=== PATIENT | male | born 1965 | race Caucasian/White ===

== ENCOUNTER 2018-04-04 09:58 | Inpatient (IN) | payer OTHER, MEDICARE ==
[~2018-04-04] VITALS: Ht 188 cm; Wt 112.5 kg
[2018-04-04] MEDS ORDERED: RT-ALBUTEROL/IPRATROPIUM 3 ML (DUONEB) VIAL INH ONE (10:00)
--- NOTE | 2018-04-04 10:08 | ED Respiratory ---
History of Present Illness Date Seen by Provider: Apr 04, 2018 Time Seen by Provider: 09:52 Initial Comments 52 yr old white male who is a resident at [facility] presents with reportedly low O2 sats. He denies any dyspnea or cough. No chest pain, fever or other complaints reported. He states that the oximeter at the [facility] has not been working properly. His primary care physician was contacted and he was sent here by EMS. He states that he no longer smokes but did so in the past. He has not had any ankle edema or pleuritic chest discomfort. Cough has been nonproductive and he reports no hemoptysis. Allergies and Home Medications Allergies Coded Allergies: No Known Drug Allergies (Unverified , 04/04/18) Patient Home Medication List Home Medication List Reviewed: No Review of Systems Review of Systems Constitutional: no symptoms reported EENTM: see HPI; No blurred vision, No double vision, No throat pain Respiratory: cough (chronic, unchanged); No short of breath, No stridor Cardiovascular: no symptoms reported; No chest pain, No edema, No palpitations , No syncope Gastrointestinal: No abdominal pain, No diarrhea, No nausea, No vomiting Genitourinary: no symptoms reported; No hematuria, No pain Musculoskeletal: no symptoms reported Skin: no symptoms reported Psychiatric/Neurological: See HPI; Denies Paresthesia, Denies Seizure, Denies Tingling Hematologic/Lymphatic: See HPI; Denies Anemia, Denies Blood Clots, Denies Other Immunological/Allergic: denies see HPI, denies transplant Past Cccvpuw-Xsewjz-Zwaejp Hx Past Med/Social Hx: Reviewed Nursing Past Med/Soc Hx Physical Exam Vital Signs - First Documented 04/04/18 10:06 Temp 98.2 Pulse 82 Resp 18 B/P (MAP) 102/63 (76) Pulse Ox 94 O2 Delivery Nasal Cannula O2 Flow Rate 2.00 Capillary Refill : Height: '" Weight: lbs. oz. kg; BMI Method: General Appearance: WD/WN, no apparent distress Eyes: Right Eye Normal Inspection, Right Eye PERRL, Right Eye EOMI, Right Eye Abnormal EOM; Bilateral Eye Normal Inspection, Bilateral Eye PERRL, Bilateral Eye EOMI HEENT: PERRL/EOMI, normal ENT inspection, TMs normal, pharynx normal; No scleral icterus (R) Neck: non-tender, full range of motion, supple, normal inspection, carotid bruit Respiratory: chest non-tender, no respiratory distress, no accessory muscle use , decreased breath sounds, rhonchi Cardiovascular: regular rate, rhythm, no edema, no gallop, no JVD, no murmur Gastrointestinal: normal bowel sounds, non tender, soft, no organomegaly, no pulsatile mass Extremities: normal range of motion, non-tender, normal inspection, no pedal edema, no calf tenderness, normal capillary refill, pelvis stable; No swelling 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, no motor/sensory deficits, alert, normal mood/affect, oriented x 3 Skin: normal color, warm/dry, damp Lymphatic: no adenopathy Progress/Results/Core Measures Suspected Sepsis SIRS Temperature: Pulse: Respiratory Rate: Laboratory Tests 04/04/18 10:06: White Blood Count 8.1 Blood Pressure / Mean: Laboratory Tests 04/04/18 10:06: Creatinine 0.79, INR Comment 1.0, Platelet Count 205, Total Bilirubin 0.5 Results/Orders Lab Results Laboratory Tests Test 04/04/18 10:06 Range/Units White Blood Count 8.1 4.3-11.0 10^3/uL Red Blood Count 4.75 4.35-5.85 10^6/uL Hemoglobin 14.5 13.3-17.7 G/DL Hematocrit 47 40-54 % Mean Corpuscular Volume 98 80-99 FL Mean Corpuscular Hemoglobin 31 25-34 PG Mean Corpuscular Hemoglobin Concent 31 L 32-36 G/DL Red Cell Distribution Width 15.6 H 10.0-14.5 % Platelet Count 205 130-400 10^3/uL Mean Platelet Volume 9.9 7.4-10.4 FL Neutrophils (%) (Auto) 72 42-75 % Lymphocytes (%) (Auto) 16 12-44 % Monocytes (%) (Auto) 8 0-12 % Eosinophils (%) (Auto) 3 0-10 % Basophils (%) (Auto) 1 0-10 % Neutrophils # (Auto) 5.7 1.8-7.8 X 10^3 Lymphocytes # (Auto) 1.3 1.0-4.0 X 10^3 Monocytes # (Auto) 0.7 0.0-1.0 X 10^3 Eosinophils # (Auto) 0.3 0.0-0.3 10^3/uL Basophils # (Auto) 0.1 0.0-0.1 10^3/uL Prothrombin Time 13.3 12.2-14.7 SEC INR Comment 1.0 0.8-1.4 Activated Partial Thromboplast Time 32 24-35 SEC Sodium Level 142 135-145 MMOL/L Potassium Level 4.2 3.6-5.0 MMOL/L Chloride Level 101 98-107 MMOL/L Carbon Dioxide Level 22 21-32 MMOL/L Anion Gap 19 H 5-14 MMOL/L Blood Urea Nitrogen 18 7-18 MG/DL Creatinine 0.79 0.60-1.30 MG/DL Estimat Glomerular Filtration Rate > 60 BUN/Creatinine Ratio 23 Glucose Level 108 H 70-105 MG/DL Calcium Level 9.1 8.5-10.1 MG/DL Corrected Calcium 9.2 8.5-10.1 MG/DL Magnesium Level 2.2 1.8-2.4 MG/DL Total Bilirubin 0.5 0.1-1.0 MG/DL Aspartate Amino Transf (AST/SGOT) 19 5-34 U/L Alanine Aminotransferase (ALT/SGPT) 26 0-55 U/L Alkaline Phosphatase 78 40-136 U/L Troponin T 29 H <=15 NG/L B-Type Natriuretic Peptide 309.8 H <100.0 PG/ML Total Protein 7.8 6.4-8.2 GM/DL Albumin 3.9 3.2-4.5 GM/DL My Orders Orders - LEEROY HI MD Cbc With Automated Diff (04/04/18 09:59) Magnesium (04/04/18 09:59) Chest 1 View Ap/Pa Only (04/04/18 09:59) Ekg Tracing (04/04/18 09:59) Comprehensive Metabolic Panel (04/04/18 09:59) Protime With Inr (04/04/18 09:59) Partial Thromboplastin Time (04/04/18:59) O2 (04/04/18 09:59) Monitor-Rhythm Ecg Trace Only (04/04/18:59) Lipid Panel (04/05/18 06:00) Saline Lock/Iv-Start (04/04/18 09:59) BNP (04/04/18 09:59) Albuterol/Ipra Inhalation Soln (Duoneb I (04/04/18 10:00) Svn Small Volume Nebulizer (04/04/18 09:59) Ceftriaxone For Iv Use (Rocephin For I (04/04/18 11:00) Azithromycin Injection (Zithromax Inject (04/04/18 11:00) Furosemide Injection (Lasix Injection) (04/04/18 11:15) Vital Signs/I&O 04/04/18 04/04/18 10:06 10:22 Temp 98.2 Pulse 82 Resp 18 B/P (MAP) 102/63 (76) Pulse Ox 94 94 O2 Delivery Nasal Cannula Nasal Cannula O2 Flow Rate 2.00 3.00 Capillary Refill : Progress Note : Time: 10:09 Progress Note Patient's oxygen saturation upon admission on room air was 91%. Due to his history of COPD and reported lung findings at the facility, will obtain chest x- ray, cardiac workup and administer a breathing treatment. We'll closely monitor and adjust workup and treatment as indicated. 1050 CXR suggests atelectasis vs. pneumonitis. Will give abx. 1110 Troponin and BNP elevated. Lasix ordered. Will admit for further evaluation. Pt agreeable with plan. Awaiting call back from hospitalist. [address] Corona who accepts for admission. Will transfer via [facility]. ECG Initial ECG Impression Date: Apr 04, 2018 Initial ECG Impression Time: 10:19 Initial ECG Rhythm: Normal Sinus (Q waves inferiorly, no acute changes.) Initial ECG Intervals: Normal Initial ECG Impression: Nonspecific Changes Diagnostic Imaging Diagonstic Imaging: Xray Plain Films/CT/US/NM/MRI: chest Comments CXR: Subsegmental atelectasis vs. pneumonitis. Departure Impression Primary Impression: Hypoxia Additional Impressions: Acute exacerbation of chronic obstructive airways disease CHF (congestive heart failure) Qualified Codes: I50.9 - Heart failure, unspecified Elevated troponin Disposition: SHT-TRM HOSP Condition: Improved Transfer Time Spoke to Accepting Phy: 11:16 Transfer Progress Notes Discussed with Dr. Corona who accepts patient for admission. Patient agreeable with plan. Transfer Time: 11:16 Transfer Facility: [facility] Method of Transfer: EMS Departure-Patient Inst. Referrals: LEEROY MCDUFFIE MD (PCP/Family) Primary Care Physician LEEROY HI MD Apr 04, 2018 10:08
[2018-04-04 10:28] LABS: EOSINOPHILS % (AUTO) 3 % (0-10); HEMATOCRIT 47 % (40-54); HEMOGLOBIN 14.5 G/DL (13.3-17.7); LYMPHOCYTES % (AUTO) 16 % (12-44); MEAN CORPUSCULAR HEMOGLOBIN 31 PG (25-34); MEAN CORPUSCULAR HGB CONC 31 G/DL (32-36); MEAN CORPUSCULAR VOLUME 98 FL (80-99); MEAN PLATELET VOLUME 9.9 FL (7.4-10.4); MONOCYTES % (AUTO) 8 % (0-12); PLATELET COUNT 205 10^3/uL (130-400); RED CELL DISTRIBUTION WIDTH 15.6 % (10.0-14.5); WHITE BLOOD COUNT 8.1 10^3/uL (4.3-11.0)
[2018-04-04 10:29] LABS: BASOPHILS # (AUTO) 0.1 10^3/uL (0.0-0.1); BASOPHILS % (AUTO) 1 % (0-10); EOSINOPHILS # (AUTO) 0.3 10^3/uL (0.0-0.3); LYMPHOCYTES # (AUTO) 1.3 X 10^3 (1.0-4.0); MONOCYTES # (AUTO) 0.7 X 10^3 (0.0-1.0); NEUTROPHILS # (AUTO) 5.7 X 10^3 (1.8-7.8); NEUTROPHILS % (AUTO) 72 % (42-75)
[2018-04-04 10:38] LABS: PROTHROMBIN TIME PATIENT 13.3 SEC (12.2-14.7)
--- NOTE | 2018-04-04 10:40 | Diagnostic Imaging Report ---
INDICATION: Difficulty breathing. FINDINGS: There is bibasilar subsegmental atelectasis and/or pneumonitis. There is cardiomegaly. There is no pneumothorax. Mediastinum is unremarkable. Left upper extremity PICC line is in satisfactory position. IMPRESSION: Cardiomegaly and some bibasilar subsegmental atelectasis and/or pneumonitis. Dictated by: Dictated on workstation # [id number]
[2018-04-04 10:42] LABS: BUN/CREATININE RATIO 23; CARBON DIOXIDE 22 MMOL/L (21-32); CHLORIDE 101 MMOL/L (98-107); CREATININE SERUM 0.79 MG/DL (0.60-1.30); GFR ESTIMATED > 60; GLUCOSE 108 MG/DL (70-105); POTASSIUM 4.2 MMOL/L (3.6-5.0); SODIUM 142 MMOL/L (135-145)
[2018-04-04 10:43] LABS: ALANINE AMINOTRANSFERASE 26 U/L (0-55); ALBUMIN 3.9 GM/DL (3.2-4.5); ALKALINE PHOSPHATASE 78 U/L (40-136); BILIRUBIN,TOTAL 0.5 MG/DL (0.1-1.0); CALCIUM 9.1 MG/DL (8.5-10.1); MAGNESIUM 2.2 MG/DL (1.8-2.4); TOTAL PROTEIN 7.8 GM/DL (6.4-8.2)
[2018-04-04] MEDS ORDERED: cefTRIAXone FOR IV USE 1,000 MG in WATER (STERILE) FOR INJECTION 10 ML IV ONE (11:00)
[2018-04-04] MEDS ORDERED: AZITHROMYCIN INJECTION 500 MG in NS (IVPB) 250 ML IV ONE (11:00)
[2018-04-04] MEDS ORDERED: FUROSEMIDE 40 MG/4 ML INJ (LASIX) IVP ONE (11:15)
[2018-04-04 15:53] VITALS: BP 115/56
[2018-04-04] MEDS ORDERED: LORA0.5T PO (15:58)
[2018-04-04] MEDS ORDERED: SERT100T8 PO (15:58)
[2018-04-04] MEDS ORDERED: QUET50TA PO (15:58)
[2018-04-04] MEDS ORDERED: FAMO20TA3 PO (15:58)
[2018-04-04] MEDS ORDERED: FOLI0.4T2 PO (15:58)
[2018-04-04] MEDS ORDERED: ACET-2267 PO (15:58)
[2018-04-04] MEDS ORDERED: LOPE2CAP PO (15:58)
[2018-04-04] MEDS ORDERED: QUET300T2 PO (15:58)
[2018-04-04] MEDS ORDERED: POLY17PO6 PO (15:58)
[2018-04-04] MEDS ORDERED: HALO5TAB PO (15:58)
[2018-04-04] MEDS ORDERED: HYDR28.3 TP (16:08)
[2018-04-04] MEDS ORDERED: TR1C15 TP (16:08)
[2018-04-04] MEDS ORDERED: MICO5POW6 TOP (16:08)
--- NOTE | 2018-04-04 16:09 | NUR ---
UPDATED MED REC WITH ORDER SUMMARY REPORT FROM [employer] [employer] [facility]
[2018-04-04] MEDS ORDERED: LOPERAMIDE 2 MG (IMODIUM) CAP PO PRN (16:30)
[2018-04-04] MEDS ORDERED: MILK OF MAGNESIA 400 MG/5 ML 30 ML UDC PO PRN (16:30)
[2018-04-04] MEDS ORDERED: ANTACID SUSP 30 ML UDC (MYLANTA) PO PRN (16:30)
[2018-04-04] MEDS ORDERED: BENZONATATE 100 MG (TESSALON) CAPSULE PO PRN (16:30)
[2018-04-04] MEDS ORDERED: ACETAMINOPHEN 325 MG TABLET PO PRN (16:30)
[2018-04-04] MEDS ORDERED: ONDANSETRON 4 MG/2 ML (SDV) Z0FRAN IV PRN (16:30)
--- NOTE | 2018-04-04 18:24 | NUR ---
MEJIA MCNULTY Kirs admitted to room 408-1, with an admitting diagnosis of pna , on 04/04/18 from [facility] via EMS, accompanied by EMS staff .MEJIA MCNULTY introduced to surroundings, call light, bed controls, phone, TV, temperature control, lights, meal times, smoking policy, visitor policy, side rail policy, bathrooms and showers. Patient Rights given to patient in the handbook. MEJIA MCNULTY verbalizes understanding that [facility] is not responsible for the loss or damage to any personal effects or valuables that are kept in the patients posession during their hospitalization. The following Patient Care Plans and discharge were discussed with the patient . MEJIA MCNULTY verbalizes understanding of Interdisciplinary Patient Education.
--- NOTE | 2018-04-04 18:28 | Consultation-Cardiology ---
HPI-Cardiology Cardiology Consultation: Date of Consultation 04/04/18 Time Seen by a Provider: 17:40 Date of Admission Attending Physician Danita Corona MD Admitting Physician Andrey Meier MD Consulting Physician NATALYA BENITEZ MD, MA, FACP, FACC, FSCAI, CCDS Physician requesting consult: Dr Hatfield HPI: Chief Complaint: Reason for consultation: Hypoxemia HPI 52 yo man, resident of [facility], sent to [facility] for hypoxia. He does not report cp. Does note some shortness of breath. Denies palp or syncope. Doesn't seem to have good memory or good insight into his medical issues. History- taking was helped by his sister who was by his bed side. Review of Systems-Cardiology Review of Systems Constitutional: malaise, tiredness; No weight loss, No weight gain Eyes: No vision change Ears/Nose/Throat: No ear discharge, No nasal drainage, No recent hearing loss Respiratory: As described under HPI Cardiovascular: As described under HPI Gastrointestinal: No constipation, No diarrhea, No nausea, No vomiting Genitourinary: No dysuria, No hematuria, No other Musculoskeletal: No back pain, No joint pain Skin: No rash, No ulcerations Psychiatric/Neurological: No seizure, No focal weakness, No syncope Hematologic: No bleeding abnormalities PFE-Koalrl-Rkoocg Hx Patient Social History Alcohol Use: Denies Use Recreational Drug Use: No Recent Foreign Travel: No Recent Infectious Disease Expo: No Physical Abuse Screen: No Sexual Abuse: No Immunizations Up To Date Date of Influenza Vaccine: Nov 05, 2017 Past Medical History PMH As described under Assessment. Family Medical History Family History: Arthritis Asthma Cardiovascular disease Cataracts Colon cancer Completed stroke Congenital heart disease Coronary thrombosis Deafness or hearing loss Diabetes mellitus Hypertension Kidney disease Myocardial infarction Psychosocial problem Respiratory disorder Thyroid disease Allergies and Home Medications Allergies Coded Allergies: No Known Drug Allergies (Unverified , 04/04/18) Home Medications Acetaminophen 500 Mg Tablet, 1,000 MG PO Q8H PRN for PAIN-MILD, (Reported) TAKES 2 (500MG) TABLETS Famotidine 20 Mg Tablet, 20 MG PO DAILY, (Reported) Folic Acid 0.4 Mg Tablet, 0.8 MG PO DAILY, (Reported) TAKES 2 (0.4MG) TABLETS Haloperidol 5 Mg Tablet, 5 MG PO HS, (Reported) Hydrocortisone 28.35 Gm Cream..g., TP Q8H PRN for RASH, (Reported) APPLY TO FACE Loperamide HCl 2 Mg Capsule, 2 MG PO UD PRN for DIARRHEA, (Reported) NOT TO EXCEED 8 TABS IN 24 HOURS Lorazepam 0.5 Mg Tablet, 0.5 MG PO BID, (Reported) Miconazole 5 Gm Powder, TOP Q12H PRN for GAULDING/REDNESS, (Reported) APPLY TO GLUTEAL FOLDS/ GROIN AREA Polyethylene Glycol 3350 17 Gm Powd.pack, 17 GM PO DAILY, (Reported) Quetiapine Fumarate 300 Mg Tablet, 150 MG PO HS, (Reported) TAKES 1/2 (300MG) TABLET Quetiapine Fumarate 50 Mg Tablet, 50 MG PO DAILY, (Reported) Sertraline HCl 100 Mg Tablet, 100 MG PO DAILY, (Reported) Triamcinolone Acet 15 Gm Cr, TP DAILY PRN for RASH, (Reported) Patient Home Medication List Home Medication List Reviewed: Yes Physical Exam-Cardiology Physical Exam Vital Signs/I&O 04/04/18 04/04/18 04/04/18 04/04/18 10:06 10:22 14:38 15:53 Temp 98.2 97.8 97.8 Pulse 82 83 77 Resp 18 16 20 B/P (MAP) 102/63 (76) 126/71 (89) 115/56 Pulse Ox 94 94 91 94 O2 Delivery Nasal Cannula Nasal Cannula Nasal Cannula O2 Flow Rate 2.00 3.00 3.00 04/04/18 17:33 Pulse 75 Capillary Refill : Less Than 3 Seconds Constitutional: AAO x 3, well-developed, well-nourished, other (His thought and focus of attention wander; at times, what he saying is not confirmed by his sister) HEENT: PERRL, EOMI, hearing is well preserved; No xanthelasmas are seen Neck: carotid pulses are 2 + bilaterally, with good upstrokes Respiratory: No accessory muscle use; other (generally somewhat diminished air entry and prolonged exp phase) Cardiovascular: regular rate-rhythm, S1 and S2, systolic murmur (soft AKHIL at card base) Gastrointestinal: No tender; soft; No guarding, No rebound; audible bowel sounds Extremities: No clubbing, No cyanosis, No significant edema Neurologic/Psychiatric: oriented x 3, grossly intact, power is 5/5 both on sides Skin: No rash on exposed areas, No ulcerations on exposed areas Lymphatic: no adenopathy Data Review Labs Laboratory Tests 04/04/18 10:06: White Blood Count 8.1, Red Blood Count 4.75, Hemoglobin 14.5, Hematocrit 47, Mean Corpuscular Volume 98, Mean Corpuscular Hemoglobin 31, Mean Corpuscular Hemoglobin Concent 31L, Red Cell Distribution Width 15.6H, Platelet Count 205, Mean Platelet Volume 9.9, Neutrophils (%) (Auto) 72, Lymphocytes (%) (Auto) 16, Monocytes (%) (Auto) 8, Eosinophils (%) (Auto) 3, Basophils (%) (Auto) 1, Neutrophils # (Auto) 5.7, Lymphocytes # (Auto) 1.3, Monocytes # (Auto) 0.7, Eosinophils # (Auto) 0.3, Basophils # (Auto) 0.1, Prothrombin Time 13.3, INR Comment 1.0, Activated Partial Thromboplast Time 32, Sodium Level 142, Potassium Level 4.2, Chloride Level 101, Carbon Dioxide Level 22, Anion Gap 19H , Blood Urea Nitrogen 18, Creatinine 0.79, Estimat Glomerular Filtration Rate > 60, BUN/Creatinine Ratio 23, Glucose Level 108H, Calcium Level 9.1, Corrected Calcium 9.2, Magnesium Level 2.2, Total Bilirubin 0.5, Aspartate Amino Transf ( AST/SGOT) 19, Alanine Aminotransferase (ALT/SGPT) 26, Alkaline Phosphatase 78, Troponin T 29H, B-Type Natriuretic Peptide 309.8H, Total Protein 7.8, Albumin 3.9 04/04/18 16:14: Troponin I < 0.028 Laboratory Tests 04/04/18 10:06 A/P-Cardiology Assessment/Admission Diagnosis Hypoxemia of undetermined etiology Bibasilar pneumonia or atelectasis, based on CXR of 04/04/18 Mild BNP elevation. Cannot exclude mild decomp CHF of undetermined etiology Abnormal ECG, suggestive of old inferolateral AL Schizophrenia with a h/o severe, transient eating disorder in [facility] during latter-day of nutrition Obesity with BMI approx Quit smoking in Fam h/o unknown cardiomyopathy: his sister states she has been diagnosed with a cardiomyopathy, but doesn't know any details Discussion and Recomendations * Treat with bb and ASA while awaiting card w/u * Monitor labs * Echo * Discussed case with Dr Corona on the phone earlier today * Further recs based on hosp course Clinical Quality Measures DVT/VTE Risk/Contraindication: Risk Factor Score Per Nursin RFS Level Per Nursing on Admit: 3=High NATALYA BENITEZ MD FACP FACC CCDS Apr 04, 2018 18:28
[2018-04-04] MEDS ORDERED: ASPIRIN 81 MG CHEW (CHILDREN'S ASA) PO NR (18:54)
[2018-04-04 19:17] VITALS: BP 107/70
[2018-04-04] MEDS: LORazepam 0.5 MG (ATIVAN) TABLET PO SCH (20:05)
[2018-04-04] MEDS: FAMOTIDINE 20 MG (PEPCID) TABLET PO SCH (20:05)
[2018-04-04] MEDS ORDERED: NITROGLYCERIN 0.4 MG SL TABS BTL 25'S SL PRN (20:15)
[2018-04-04] MEDS ORDERED: QUEtiapine 100 MG (SEROquel) TAB IMMEDIATE RELEASE PO SCH (21:00)
[2018-04-04] MEDS ORDERED: HALOPERIDOL 2 MG (HALDOL) TABLET PO SCH (21:00)
[2018-04-04 23:02] VITALS: BP 117/76
[2018-04-05 03:39] VITALS: BP 112/75
[2018-04-05 06:11] LABS: BASOPHILS # (AUTO) 0.1 10^3/uL (0.0-0.1); BASOPHILS % (AUTO) 1 % (0-10); EOSINOPHILS # (AUTO) 0.2 10^3/uL (0.0-0.3); EOSINOPHILS % (AUTO) 3 % (0-10); HEMATOCRIT 49 % (40-54); HEMOGLOBIN 14.7 G/DL (13.3-17.7); LYMPHOCYTES # (AUTO) 1.1 X 10^3 (1.0-4.0); LYMPHOCYTES % (AUTO) 14 % (12-44); MEAN CORPUSCULAR HEMOGLOBIN 30 PG (25-34); MEAN CORPUSCULAR HGB CONC 30 G/DL (32-36); MEAN CORPUSCULAR VOLUME 98 FL (80-99); MEAN PLATELET VOLUME 9.9 FL (7.4-10.4); MONOCYTES # (AUTO) 0.8 X 10^3 (0.0-1.0); MONOCYTES % (AUTO) 10 % (0-12); NEUTROPHILS # (AUTO) 5.9 X 10^3 (1.8-7.8); NEUTROPHILS % (AUTO) 73 % (42-75); PLATELET COUNT 179 10^3/uL (130-400); WHITE BLOOD COUNT 8.1 10^3/uL (4.3-11.0)
[2018-04-05 06:30] LABS: BUN/CREATININE RATIO 20; CALCIUM 9.2 MG/DL (8.5-10.1); CARBON DIOXIDE 33 MMOL/L (21-32); CHLORIDE 99 MMOL/L (98-107); CREATININE SERUM 0.95 MG/DL (0.60-1.30); GFR ESTIMATED > 60; GLUCOSE 97 MG/DL (70-105); POTASSIUM 4.2 MMOL/L (3.6-5.0); SODIUM 144 MMOL/L (135-145)
[2018-04-05 07:17] LABS: CHOLESTEROL 217 MG/DL (< 200); HDL CHOLESTEROL 38 MG/DL (40-60); TRIGLYCERIDES 175 MG/DL (<150); VLDL CHOLESTEROL 35 MG/DL (5-40)
[2018-04-05 08:00] VITALS: BP 105/57
[2018-04-05] MEDS: LORazepam 0.5 MG (ATIVAN) TABLET PO SCH (08:35)
[2018-04-05] MEDS: FAMOTIDINE 20 MG (PEPCID) TABLET PO SCH (08:38)
[2018-04-05] MEDS ORDERED: FOLIC ACID 1 MG TAB PO SCH (09:00)
[2018-04-05] MEDS ORDERED: cefTRIAXone FOR IV USE 1,000 MG in WATER (STERILE) FOR INJECTION 10 ML IV SCH (09:00)
[2018-04-05] MEDS ORDERED: POLYETHYLENE GLYCOL 17 GM (MIRALAX) PACK PO SCH (09:00)
[2018-04-05] MEDS ORDERED: QUEtiapine 100 MG (SEROquel) TAB IMMEDIATE RELEASE PO SCH (09:00)
[2018-04-05] MEDS ORDERED: ASPIRIN 81 MG CHEW (CHILDREN'S ASA) PO SCH (09:00)
[2018-04-05] MEDS ORDERED: AZITHROMYCIN 250 MG TAB (ZITHROMAX) PO SCH (09:00)
[2018-04-05] MEDS ORDERED: SERTRALINE 100 MG (ZOLOFT) TAB PO SCH (09:00)
--- NOTE | 2018-04-05 09:37 | Progress Note-Cardiology ---
Cardiology SOAP Progress Note Subjective: Sitting up in bed. Denies any c/o CP, palpitations, dyspnea. Objective: I&O/Vital Signs 04/04/18 04/05/18 04/05/18 04/05/18 23:02 01:00 03:39 07:00 Temp 97.8 97.8 Pulse 71 80 73 83 Resp 18 18 B/P (MAP) 117/76 (90) 112/75 (87) Pulse Ox 93 93 O2 Delivery Nasal Cannula Nasal Cannula O2 Flow Rate 3.00 3.00 04/05/18 04/05/18 08:00 08:00 Temp 97.2 Pulse 74 Resp 18 B/P (MAP) 105/57 (73) Pulse Ox 90 O2 Delivery Room Air Nasal Cannula O2 Flow Rate 3.00 04/05/18 00:00 Intake Total 530 ml Output Total 250 ml Balance 280 ml Weight (Pounds): 248 Weight (Ounces): 0.0 Weight (Calculated Kilograms): 112.575431 Constitutional: AAO x 3, well-developed, well-nourished, other (His thought and focus of attention wander; at times, what he saying is not confirmed by his sister) Respiratory: No accessory muscle use; other (generally somewhat diminished air entry and prolonged exp phase) Cardiovascular: regular rate-rhythm, S1 and S2, systolic murmur (soft AKHIL at card base) Gastrointestional: No tender; soft; No guarding, No rebound; audible bowel sounds Extremities: No clubbing, No cyanosis, No significant edema Neurologic/Psychiatric: oriented x 3, grossly intact, power is 5/5 both on sides Skin: No rash on exposed areas, No ulcerations on exposed areas Results/Procedures: Labs Laboratory Tests 04/04/18 10:06: White Blood Count 8.1, Red Blood Count 4.75, Hemoglobin 14.5, Hematocrit 47, Mean Corpuscular Volume 98, Mean Corpuscular Hemoglobin 31, Mean Corpuscular Hemoglobin Concent 31L, Red Cell Distribution Width 15.6H, Platelet Count 205, Mean Platelet Volume 9.9, Neutrophils (%) (Auto) 72, Lymphocytes (%) (Auto) 16, Monocytes (%) (Auto) 8, Eosinophils (%) (Auto) 3, Basophils (%) (Auto) 1, Neutrophils # (Auto) 5.7, Lymphocytes # (Auto) 1.3, Monocytes # (Auto) 0.7, Eosinophils # (Auto) 0.3, Basophils # (Auto) 0.1, Prothrombin Time 13.3, INR Comment 1.0, Activated Partial Thromboplast Time 32, Sodium Level 142, Potassium Level 4.2, Chloride Level 101, Carbon Dioxide Level 22, Anion Gap 19H , Blood Urea Nitrogen 18, Creatinine 0.79, Estimat Glomerular Filtration Rate > 60, BUN/Creatinine Ratio 23, Glucose Level 108H, Calcium Level 9.1, Corrected Calcium 9.2, Magnesium Level 2.2, Total Bilirubin 0.5, Aspartate Amino Transf ( AST/SGOT) 19, Alanine Aminotransferase (ALT/SGPT) 26, Alkaline Phosphatase 78, Troponin T 29H, B-Type Natriuretic Peptide 309.8H, Total Protein 7.8, Albumin 3.9 04/04/18 16:14: Troponin I < 0.028 04/05/18 05:45: White Blood Count 8.1, Red Blood Count 4.96, Hemoglobin 14.7, Hematocrit 49, Mean Corpuscular Volume 98, Mean Corpuscular Hemoglobin 30, Mean Corpuscular Hemoglobin Concent 30L, Red Cell Distribution Width 16.0H, Platelet Count 179, Mean Platelet Volume 9.9, Neutrophils (%) (Auto) 73, Lymphocytes (%) (Auto) 14, Monocytes (%) (Auto) 10, Eosinophils (%) (Auto) 3, Basophils (%) (Auto) 1, Neutrophils # (Auto) 5.9, Lymphocytes # (Auto) 1.1, Monocytes # (Auto) 0.8, Eosinophils # (Auto) 0.2, Basophils # (Auto) 0.1, Sodium Level 144, Potassium Level 4.2, Chloride Level 99, Carbon Dioxide Level 33H, Anion Gap 12, Blood Urea Nitrogen 19H, Creatinine 0.95, Estimat Glomerular Filtration Rate > 60, BUN /Creatinine Ratio 20, Glucose Level 97, Calcium Level 9.2, Triglycerides Level 175H, Cholesterol Level 217H, LDL Cholesterol Direct 158H, VLDL Cholesterol 35, HDL Cholesterol 38L Laboratory Tests 04/04/18 10:06 04/05/18 05:45 A/P: Assessment: Hypoxemia of undetermined etiology Bibasilar pneumonia or atelectasis, based on CXR of 04/04/18 Mild BNP elevation. Cannot exclude mild decomp CHF of undetermined etiology Abnormal ECG, suggestive of old inferolateral RI Mixed hyperlipidemia Schizophrenia with a h/o severe, transient eating disorder in requiring tracheostomy and mech ventilation during confucianism of nutrition Obesity with BMI approx Quit smoking in Fam h/o unknown cardiomyopathy: his sister states she has been diagnosed with a cardiomyopathy, but doesn't know any details Plan: * Continue bb and ASA while awaiting card w/u * Monitor labs * Echo pending * Start statin JUAN FRANCISCO Saba Apr 05, 2018 09:37
--- NOTE | 2018-04-05 11:28 | NUR ---
SPO2 77% ON ROOM AIR @ REST. REPLACED O2 @ 4 LPM TO GET A SAT OF 92%. DR ALEXIS NOTIFIED.
--- NOTE | 2018-04-05 11:37 | Short Stay Summary-Hospitalist ---
History of Present Illness HPI/Chief Complaint Pt is a 52yoCM who presented to the ER from his [facility] where he was found to be hypoxic. He is a very poor historian and is unable to give me any history. Per report he was found to be hypoxic but I am unsure why they checked. He was given a breathing treatment and his saturations remains in the 80s so he was brought to the ER for evaluation. He was found to have pneumonia on CXR with a mildly elevated troponin and BNP. He was transferred here for further evaluation. Today he reports he is doing well and is requesting DC home. Sister at bedside and expresses no other concerns other than that he doesn't get out of bed often. Source: patient Exam Limitations: clinical condition Date Seen 04/05/18 Time Seen by a Provider: 11:31 Attending Physician Kirby Corona MD PCP Andrey Meier MD Referring Physician Date of Admission Apr 04, 2018 at 12:01 Home Medications & Allergies Home Medications Reviewed patient Home Medication Reconciliation performed by pharmacy medication reconciliations installation and service technician and/or nursing. Patients Allergies have been reviewed. Allergies Allergies Coded Allergies No Known Drug Allergies (Unverified04/04/18) Past Nezhgwu-Qingqv-Pepgfm Hx Past Med/Social Hx: Reviewed Nursing Past Med/Soc Hx Patient Social History Employed/Student: unemployed Alcohol Use: Denies Use Recreational Drug Use: No Smoking Status: Unknown if Ever Smoked Physical Abuse Screen: No Sexual Abuse: No Recent Foreign Travel: No Contact w/other who traveled: No Recent Hopitalizations: No Recent Infectious Disease Expo: No Immunizations Up To Date Date of Influenza Vaccine: Nov 05, 2017 Seasonal Allergies Seasonal Allergies: No Past Medical History Gastrointestinal: Gastroesophageal Reflux, Gall Bladder Disease HEENT: Dysphagia Psychosocial: Anxiety, Schizophrenia, Depression History of Blood Disorders: No Adverse Reaction to Blood Klein: No Family History Arthritis Asthma Cardiovascular disease Cataracts Colon cancer Completed stroke Congenital heart disease Coronary thrombosis Deafness or hearing loss Diabetes mellitus Hypertension Kidney disease Myocardial infarction Psychosocial problem Respiratory disorder Thyroid disease Review of Systems ROS-Unable to Obtain: psychiatric disorder Constitutional: see HPI Physical Exam Physical Exam Vital Signs Vital Signs - First Documented 04/04/18 10:06 Temp 98.2 Pulse 82 Resp 18 B/P (MAP) 102/63 (76) Pulse Ox 94 O2 Delivery Nasal Cannula O2 Flow Rate 2.00 Capillary Refill : Less Than 3 Seconds Height, Weight, BMI Height: 6'2.00" Weight: 248lbs. 0.0oz. [id number]; 31.8 BMI Method:Estimated General Appearance: No Apparent Distress, Obese Eyes: Right Eye Normal Inspection, Right Eye PERRL, Right Eye EOMI, Right Eye Abnormal EOM HEENT: Moist Mucous Membranes; No Scleral Icterus (L), No Scleral Icterus (R) Neck: Normal Inspection, Supple Respiratory: Lungs Clear, No Accessory Muscle Use, No Respiratory Distress Cardiovascular: Regular Rate, Rhythm, No Murmur Gastrointestinal: Normal Bowel Sounds, Non Tender, Soft Extremity: No Calf Tenderness, No Pedal Edema Neurologic/Psychiatric: Alert, No Motor/Sensory Deficits, Other (oriented to person and place) Skin: Normal Color, Warm/Dry Results Results/Procedures Labs Laboratory Tests 04/05/18 05:45 Patient resulted labs reviewed. Imaging: Reviewed Imaging Report Short Stay Diagnosis Discharge Diagnosis-Short Stay Admission Diagnosis Pneumonia Final Discharge Diagnosis Pneumonia Conclusion Plan Pneumonia Continue treatment with oral abx as an outpatient (Keflex and Azithro) DC back to shelter Home oxygen testing revealed need- this was arranged Elevated troponin Negative here Discussed with Angie Brown APRN for Dr Botello who is ok with discharge HLD mixed HLD, start on statin Clinical Quality Measures DVT/VTE Risk/Contraindication: Risk Factor Score Per Nursin RFS Level Per Nursing on Admit: 3=High KIRBY CORONA MD Apr 05, 2018 11:37
[2018-04-05] MEDS ORDERED: ASPI-999 PO (11:45)
[2018-04-05] MEDS ORDERED: AZIT250T12 PO (11:45)
[2018-04-05] MEDS ORDERED: ATOR40TA PO (11:45)
[2018-04-05] MEDS ORDERED: METO-387 PO (11:45)
[2018-04-05] MEDS ORDERED: CEPH-507 PO (11:45)
--- NOTE | 2018-04-05 11:47 | Discharge Inst-Simple/Standard ---
Discharge Inst-Standard Discharge Medications New, Converted or Re-Newed RX: Other Patient Instructions/Follow Up Plan of Care/Instructions/FU: Please continue to take your medications as written. Please follow up with your PCP in 1 week. Activity as Tolerated: Yes Discharge Diet: Cardiac Diet Return to The Hospital For: Shortness of breath, chest pain, fever, if you feel you are getting worse. Planned Outpatient Orders/Ref. Pneu Vac Indicated: Yes KIRBY ALEXIS MD Apr 05, 2018 11:47
[2018-04-05 12:00] VITALS: BP 100/60
--- NOTE | 2018-04-05 12:13 | NUR ---
CM/SS spoke with patient and his sister, he will return to [facility] this day. [facility] will transport this day around 1530. All discharge information was sent to [place].
--- NOTE | 2018-04-05 14:10 | NUR ---
Pastoral care visit.
--- NOTE | 2018-04-05 15:39 | Progress Note-Cardiology ---
Cardiology SOAP Progress Note Subjective: States feels better today Denies cp or palp or syncope or swelling Notes some gen malaise Objective: I&O/Vital Signs 04/05/18 04/05/18 04/05/18 04/05/18 07:00 08:00 08:00 11:28 Temp 97.2 Pulse 83 74 Resp 18 B/P (MAP) 105/57 (73) Pulse Ox 90 92 O2 Delivery Room Air Nasal Cannula Nasal Cannula O2 Flow Rate 3.00 4.00 04/05/18 04/05/18 04/05/18 12:00 13:00 16:52 Temp 97.0 Pulse 75 82 82 Resp 18 18 B/P (MAP) 100/60 (73) 100/60 Pulse Ox 95 95 O2 Delivery Nasal Cannula Nasal Cannula O2 Flow Rate 3.00 3.00 04/05/18 00:00 Intake Total 530 ml Output Total 250 ml Balance 280 ml Weight (Pounds): 248 Weight (Ounces): 0.0 Weight (Calculated Kilograms): 112.863227 Constitutional: AAO x 3, well-developed, well-nourished, other (His thought and focus of attention wander; at times, what he saying is not confirmed by his sister) Respiratory: No accessory muscle use; other (generally somewhat diminished air entry and prolonged exp phase) Cardiovascular: regular rate-rhythm, S1 and S2, systolic murmur (soft AKHIL at card base) Gastrointestional: No tender; soft; No guarding, No rebound; audible bowel sounds Extremities: No clubbing, No cyanosis, No significant edema Neurologic/Psychiatric: oriented x 3, grossly intact, power is 5/5 both on sides Skin: No rash on exposed areas, No ulcerations on exposed areas Results/Procedures: Labs Laboratory Tests 04/05/18 05:45: White Blood Count 8.1, Red Blood Count 4.96, Hemoglobin 14.7, Hematocrit 49, Mean Corpuscular Volume 98, Mean Corpuscular Hemoglobin 30, Mean Corpuscular Hemoglobin Concent 30L, Red Cell Distribution Width 16.0H, Platelet Count 179, Mean Platelet Volume 9.9, Neutrophils (%) (Auto) 73, Lymphocytes (%) (Auto) 14, Monocytes (%) (Auto) 10, Eosinophils (%) (Auto) 3, Basophils (%) (Auto) 1, Neutrophils # (Auto) 5.9, Lymphocytes # (Auto) 1.1, Monocytes # (Auto) 0.8, Eosinophils # (Auto) 0.2, Basophils # (Auto) 0.1, Sodium Level 144, Potassium Level 4.2, Chloride Level 99, Carbon Dioxide Level 33H, Anion Gap 12, Blood Urea Nitrogen 19H, Creatinine 0.95, Estimat Glomerular Filtration Rate > 60, BUN /Creatinine Ratio 20, Glucose Level 97, Calcium Level 9.2, Triglycerides Level 175H, Cholesterol Level 217H, LDL Cholesterol Direct 158H, VLDL Cholesterol 35, HDL Cholesterol 38L A/P: Assessment: Hypoxemia of undetermined etiology Bibasilar pneumonia or atelectasis, based on CXR of 04/04/18 Mild BNP elevation. No clinical evidence of decompensated CHF or ACS Abnormal ECG, suggestive of old inferolateral WA Echo o 04/05/18: LVEF 60%, grade 1 diastolic dysfunction, no regional wall motion abnormality Mixed hyperlipidemia Schizophrenia with a h/o severe, transient eating disorder in [facility] during quaker of nutrition Obesity with BMI approx Quit smoking in Fam h/o unknown cardiomyopathy: his sister states she has been diagnosed with a cardiomyopathy, but doesn't know any details Plan: * Continue bb and ASA * Control bp * Risk factor modification advised * Outpt f/u advised NATALYA BENITEZ MD FACP FAC CCDS Apr 05, 2018 15:39
[2018-04-05 16:52] VITALS: BP 100/60
[2018-04-05] MEDS ORDERED: ATORVASTATIN 40 MG (LIPITOR) TABLET PO SCH (21:00)
== END 2018-04-05 16:57 | DRG 195 ==
LOC: ER FS 10:02 → 4TH 12:01
PROVIDERS: ADMIT Family Medicine; ATTEND Family Medicine
DX: J18.9 Pneumonia, unspecified organism (principal); E78.2 Mixed hyperlipidemia; R79.89 Other specified abnormal findings of blood chemistry; F20.9 Schizophrenia, unspecified; K21.9 Gastro-esophageal reflux disease without esophagitis; F41.9 Anxiety disorder, unspecified; F32.9 Major depressive disorder, single episode, unspecified; R13.10 Dysphagia, unspecified; E66.9 Obesity, unspecified; Z68.31 Body mass index [BMI] 31.0-31.9, adult; Z87.891 Personal history of nicotine dependence
CPT/HCPCS: 36415; 71045; 80048; 80053; 80061; 83735; 83880; 84484; 85025; 85610; 85730; 93005; 93041; 93306; 94760; 96365; 96375

== ENCOUNTER 2018-06-24 21:41 | Inpatient (IN) | payer OTHER, MEDICARE ==
[~2018-06-24] VITALS: Ht 177.8 cm; Wt 131.5 kg
[~2018-06-24 21:41] MED LIST: ACET-2267 PO; ASPI-999 PO; ATOR40TA PO; AZIT250T12 PO; CEPH-507 PO; FAMO20TA3 PO; FOLI0.4T2 PO; HALO5TAB PO; HYDR28.3 TP; LOPE2CAP PO; LORA0.5T PO; METO-387 PO; MICO5POW6 TOP; POLY17PO6 PO; QUET300T2 PO; QUET50TA PO; SERT100T8 PO; TR1C15 TP
[2018-06-24] MEDS ORDERED: methylPREDNISolone 125 MG (Solu-MEDROL) VIAL IVP ONE (21:45)
[2018-06-24] MEDS ORDERED: RT-ALBUTEROL/IPRATROPIUM 3 ML (DUONEB) VIAL INH ONE (21:45)
--- NOTE | 2018-06-24 21:50 | ED General ---
General Chief Complaint: Respiratory Problems Stated Complaint: SOB Source of Information: Patient, EMS Exam Limitations: Other (cognitive impairment) History of Present Illness Date Seen by Provider: June 24, 2018 Time Seen by Provider: 21:34 This is a 52-year-old man with a history of hypercapnic respiratory failure, pneumonia, schizophrenia, hyperlipidemia, here by EMS for reported shortness of breath. According to EMS they did not give any medications because he was in no acute distress at any time during their evaluation. Patient denies any pain. Allergies and Home Medications Allergies Coded Allergies: No Known Drug Allergies (Unverified , 06/24/18) Patient Home Medication List Home Medication List Reviewed: Yes Review of Systems Review of Systems Constitutional: no symptoms reported EENTM: no symptoms reported Respiratory: see HPI Cardiovascular: no symptoms reported Gastrointestinal: no symptoms reported Genitourinary: no symptoms reported Musculoskeletal: no symptoms reported Skin: no symptoms reported Psychiatric/Neurological: No Symptoms Reported Hematologic/Lymphatic: No Symptoms Reported Immunological/Allergic: no symptoms reported Past Iihqiss-Flysey-Tlmxkw Hx Past Med/Social Hx: Reviewed Nursing Past Med/Soc Hx Patient Social History Recent Foreign Travel: No Contact w/Someone Who Travel: No Physical Exam Vital Signs Vital Signs - First Documented 06/24/18 21:41 Temp 97.5 Pulse 79 Resp 20 B/P (MAP) 124/67 (86) Pulse Ox 95 O2 Delivery Nasal Cannula O2 Flow Rate 2.00 Capillary Refill : Height, Weight, BMI Height: '" Weight: lbs. oz. kg; BMI Method: General Appearance: No Apparent Distress (wearing nasal cannula but speaking in full sentences, appears mildly drowsy although his eyes are open spontaneously) HEENT: Moist Mucous Membranes Neck: Supple (JVD is not appreciable although patient has a large neck) Respiratory: Other (slightly decreased breath sounds bilaterally with no significant adventitious noises appreciable) Cardiovascular: Regular Rate, Rhythm, No Edema, Normal Peripheral Pulses Gastrointestinal: Non Tender, Soft Neurologic/Psychiatric: Other (patient is awake and conversant, he appears in no visible discomfort in no respiratory distress, he does know the city but he does not know the year) Skin: Warm/Dry Progress/Results/Core Measures Suspected Sepsis SIRS Temperature: Pulse: Respiratory Rate: Laboratory Tests 06/24/18 22:00: White Blood Count 10.6 Blood Pressure / Mean: Laboratory Tests 06/24/18 22:00: Creatinine 0.88, INR Comment 1.0, Platelet Count 140, Total Bilirubin 0.8 Results/Orders Lab Results Laboratory Tests Test 06/24/18 22:00 Range/Units White Blood Count 10.6 4.3-11.0 10^3/uL Red Blood Count 4.63 4.35-5.85 10^6/uL Hemoglobin 14.3 13.3-17.7 G/DL Hematocrit 48 40-54 % Mean Corpuscular Volume 103 H 80-99 FL Mean Corpuscular Hemoglobin 31 25-34 PG Mean Corpuscular Hemoglobin Concent 30 L 32-36 G/DL Red Cell Distribution Width 17.3 H 10.0-14.5 % Platelet Count 140 130-400 10^3/uL Mean Platelet Volume 11.0 H 7.4-10.4 FL Prothrombin Time 13.1 12.2-14.7 SEC INR Comment 1.0 0.8-1.4 Activated Partial Thromboplast Time < 20 L 24-35 SEC Sodium Level 145 135-145 MMOL/L Potassium Level 5.3 H 3.6-5.0 MMOL/L Chloride Level 98 98-107 MMOL/L Carbon Dioxide Level 36 H 21-32 MMOL/L Anion Gap 11 5-14 MMOL/L Blood Urea Nitrogen 24 H 7-18 MG/DL Creatinine 0.88 0.60-1.30 MG/DL Estimat Glomerular Filtration Rate > 60 BUN/Creatinine Ratio 27 Glucose Level 112 H 70-105 MG/DL Calcium Level 8.8 8.5-10.1 MG/DL Corrected Calcium 8.7 8.5-10.1 MG/DL Total Bilirubin 0.8 0.1-1.0 MG/DL Aspartate Amino Transf (AST/SGOT) 26 5-34 U/L Alanine Aminotransferase (ALT/SGPT) 24 0-55 U/L Alkaline Phosphatase 94 40-136 U/L Troponin T 57 H <=15 NG/L Pro-B-Type Natriuretic Peptide 958.4 H <75.0 PG/ML Total Protein 7.2 6.4-8.2 GM/DL Albumin 4.1 3.2-4.5 GM/DL My Orders Orders - ASHELY ALLEN DO Chest 1 View Ap/Pa Only (06/24/18 21:44) Ekg Tracing (06/24/18 21:44) Comprehensive Metabolic Panel (06/24/18 21:44) Protime With Inr (06/24/18 21:44) Partial Thromboplastin Time (06/24/18 21:44) O2 (06/24/18 21:44) Monitor-Rhythm Ecg Trace Only (06/24/18 21:44) Ed Iv/Invasive Line Start (06/24/18 21:44) Cbc No Diff (06/24/18 21:44) Troponin T (06/24/18 21:44) Probnp Fs (06/24/18 21:44) Methylprednisolone Sod Succ (Solu-Medrol (06/24/18 21:45) Albuterol/Ipra Inhalation Soln (Duoneb I (06/24/18 21:45) Svn Small Volume Nebulizer (06/24/18 21:45) Iohexol Injection (Omnipaque 350 Mg/Ml 1 (06/24/18 23:45) Received Contrast (Hold Metformin- Contr (06/24/18 23:45) Ns (Ivpb) (Sodium Chloride 0.9% Ivpb Bag (06/24/18 23:45) Medications Given in ED Current Medications Medications Dose Ordered Sig/Kevin Route Start Time Stop Time Status Last Admin Dose Admin Albuterol/ Ipratropium 3 ml ONCE ONCE INH 06/24/18 21:45 06/24/18 21:46 DC 06/24/18 22:02 3 ML Methylprednisolone Sodium Succinate 125 mg ONCE ONCE IVP 06/24/18 21:45 06/24/18 21:46 DC 06/24/18 22:02 125 MG Vital Signs/I&O 06/24/18 06/24/18 06/24/18 21:41 21:51 22:12 Temp 97.5 Pulse 79 Resp 20 B/P (MAP) 124/67 (86) Pulse Ox 95 95 97 O2 Delivery Nasal Cannula Room Air Nasal Cannula O2 Flow Rate 2.00 2.00 2.00 Capillary Refill : Progress Note : Progress Note This is a 52-year-old man with a history listed of respiratory failure with hypercapnia, morbid obesity, here reportedly for shortness of breath. EMS reports that it appeared he had sleep apnea which was the cause for concern at his facility, they did not feel that they needed to intervene in any way. Indeed patient is in no acute distress this time. I did treat with bronchodilators and steroids for some degree of symptomatic relief if he does have underlying obstructive lung disease. Also considering acute coronary syndrome, CHF, anemia, we are checking labs, EKG, troponin and BNP. ECG shows diffuse Q waves as well as T-wave flattening in the inferior and lateral leads, however he is not having any chest pain and in fact is denying any symptoms at this time. We have noticed him snoring and dropping his oxygen saturation into the 80s when he sleeps. This resolved with supplemental oxygen. We will continue to monitor. Diagnostic Imaging Diagonstic Imaging: Xray Plain Films/CT/US/NM/MRI: chest Comments EP interpretation: Trachea is approximately in the midline, it appears to deviate slightly to the right upon entry into the chest, cardiomediastinal silhouette is enlarged, poor inspiratory effort, no focal infiltrates, no effusions, no pneumothoraces Reviewed: Reviewed by Me Departure Impression Primary Impression: Dyspnea Qualified Codes: R06.00 - Dyspnea, unspecified Additional Impressions: Elevated troponin Elevated brain natriuretic peptide (BNP) level Morbid obesity Sleep apnea Qualified Codes: G47.30 - Sleep apnea, unspecified Q waves suggestive of previous myocardial infarction Disposition: 09 ADMITTED INPATIENT Condition: Stable Transfer Time Spoke to Accepting Phy: 23:56 Transfer Facility: Dr Tony at [facility] Method of Transfer: EMS Departure-Patient Inst. Referrals: NO,LOCAL PHYSICIAN (PCP) Primary Care Physician ASHELY ALLEN DO June 24, 2018 21:50
[2018-06-24 22:14] LABS: HEMOGLOBIN 14.3 G/DL (13.3-17.7); WHITE BLOOD COUNT 10.6 10^3/uL (4.3-11.0)
[2018-06-24 22:15] LABS: RED CELL DISTRIBUTION WIDTH 17.3 % (10.0-14.5)
[2018-06-24 22:33] LABS: PARTIAL THROMBOPLASTIN TIME < 20 SEC (24-35); PROTHROMBIN TIME PATIENT 13.1 SEC (12.2-14.7)
--- NOTE | 2018-06-24 22:39 | NUR ---
PT. HAS PERIODS OF APNEA. HE WAS PLACED ON 02 PER FACE MASK BUT IT DIDNT HELP SO THE PATIENT WAS PLACED ON 7 LITERS PER NON-REBREATHER MASK.
--- NOTE | 2018-06-24 23:12 | NUR ---
PT. WAS PLACED ON AT 7 LITERS PER NON-REBREATHER HIS SATS WOULD DROP TO 82%. HIS SATS ARE 97% NOW
[2018-06-24 23:15] LABS: ALANINE AMINOTRANSFERASE 24 U/L (0-55); ALBUMIN 4.1 GM/DL (3.2-4.5); ALKALINE PHOSPHATASE 94 U/L (40-136); BILIRUBIN,TOTAL 0.8 MG/DL (0.1-1.0); BUN/CREATININE RATIO 27; CALCIUM 8.8 MG/DL (8.5-10.1); CARBON DIOXIDE 36 MMOL/L (21-32); CHLORIDE 98 MMOL/L (98-107); CREATININE SERUM 0.88 MG/DL (0.60-1.30); GFR ESTIMATED > 60; GLUCOSE 112 MG/DL (70-105); POTASSIUM 5.3 MMOL/L (3.6-5.0); SODIUM 145 MMOL/L (135-145); TOTAL PROTEIN 7.2 GM/DL (6.4-8.2)
[2018-06-24] MEDS ORDERED: IOHEXOL 350 MG/ML 100 ML (OMNIPAQUE 350) VIAL IV ONE (23:45)
[2018-06-24] MEDS ORDERED: NS 100 ML (IVPB) BAG IV ONE (23:45)
[2018-06-24] MEDS ORDERED: HOLD METFORMIN - RECEIVED CONTRAST 20 ML VIAL IV SCH (23:45)
--- NOTE | 2018-06-24 23:45 | NUR ---
ATTEMPTED TO START AN IV IN THE LEFT AC WITH AN 18 GAUGE BUT IT WAS A FAILED ATTEMPT.
[2018-06-25] VITALS (7 sets, daily range): BP systolic 110–141; BP diastolic 59–83
[2018-06-25] MEDS ORDERED: ASPIRIN 81 MG CHEW (CHILDREN'S ASA) PO ONE (00:15)
--- NOTE | 2018-06-25 00:34 | NUR ---
PT. WILL NOT ANSWER QUESTIONS. HE IS CONFUSED
--- OUTSIDE RECORDS SUMMARY | 2018-06-25 01:07 | XMS REPORT | Continuity of Care Document ---
Author Organization Unknown Address Unknown Allergies There is no data. Medications There is no data. Problems There is no data. Procedures There is no data. Results Test Result Range [facility] - 04/30/18 15:24 GLUCOSE 93 mg/dL 65-99 UREA NITROGEN (BUN) 19 mg/dL 7-25 CREATININE 0.82 mg/dL 0.70-1.33 eGFR NON-AFR. CITIZEN OF [place] 100 mL/min/1.73m2 > OR=60 eGFR 116 mL/min/1.73m2 > OR=60 BUN/CREATININE RATIO NOT APPLICABLE (calc) 6-22 SODIUM 142 mmol/L 135-146 POTASSIUM 4.4 mmol/L 3.5-5.3 CHLORIDE 99 mmol/L 98-110 CARBON DIOXIDE 37 mmol/L 20-32 CALCIUM 9.2 mg/dL 8.6-10.3 PROTEIN, TOTAL 7.4 g/dL 6.1-8.1 ALBUMIN 4.3 g/dL 3.6-5.1 GLOBULIN 3.1 g/dL (calc) 1.9-3.7 ALBUMIN/GLOBULIN RATIO 1.4 (calc) 1.0-2.5 BILIRUBIN, TOTAL 0.7 mg/dL 0.2-1.2 ALKALINE PHOSPHATASE 84 U/L 40-115 AST 14 U/L 10-35 ALT 19 U/L 9-46 A1C - 06/20/18 16:11 HEMOGLOBIN A1c 5.9 % of total Hgb <5.7 Encounters ACCT No. Visit Date/Time Discharge Status Pt. Type Provider Facility Loc./Unit Complaint [id number] 06/20/2018 17:45:00 06/20/2018 23:59:59 CLS Outpatient [facility] [id number] 06/20/2018 17:45:00 Document Registration [id number] 04/30/2018 17:40:00 Document Registration
--- NOTE | 2018-06-25 01:47 | NUR ---
PT. FOUND THIS PATIENT WITH HIS PULSE OX OFF AND THE NON REBREATHER MASK ON TOP OF HIS HEAD. SATS WERE IN THE LOW 80S BUT WITH REPLACEMENT OF THE NON REBREATHER MASK HIS SATS WERE 95 PERCENT.
[2018-06-25] MEDS ORDERED: RT-ALBUTEROL/IPRATROPIUM 3 ML (DUONEB) VIAL INH PRN (04:30)
[2018-06-25 04:39] LABS: BASOPHILS % (AUTO) 0 % (0-10); EOSINOPHILS % (AUTO) 0 % (0-10); HEMATOCRIT 50 % (40-54); HEMOGLOBIN 14.9 G/DL (13.3-17.7); LYMPHOCYTES # (AUTO) 0.6 X 10^3 (1.0-4.0); LYMPHOCYTES % (AUTO) 5 % (12-44); MEAN CORPUSCULAR HEMOGLOBIN 31 PG (25-34); MEAN CORPUSCULAR HGB CONC 30 G/DL (32-36); MEAN CORPUSCULAR VOLUME 102 FL (80-99); MEAN PLATELET VOLUME 9.6 FL (7.4-10.4); MONOCYTES # (AUTO) 0.3 X 10^3 (0.0-1.0); MONOCYTES % (AUTO) 3 % (0-12); NEUTROPHILS # (AUTO) 10.9 X 10^3 (1.8-7.8); NEUTROPHILS % (AUTO) 92 % (42-75); PLATELET COUNT 191 10^3/uL (130-400); WHITE BLOOD COUNT 11.9 10^3/uL (4.3-11.0)
[2018-06-25 05:00] LABS: ANISOCYTOSIS SLIGHT; BAND NEUTROPHILS 7 %; LYMPHOCYTES % (MANUAL) 3 %; MONOCYTES % (MANUAL) 1 %; NEUTROPHILS % (MANUAL) 89 %
[2018-06-25 05:06] LABS: ALANINE AMINOTRANSFERASE 25 U/L (0-55); ALBUMIN 4.2 GM/DL (3.2-4.5); ALKALINE PHOSPHATASE 88 U/L (40-136); BILIRUBIN,TOTAL 0.8 MG/DL (0.1-1.0); BUN/CREATININE RATIO 23; CALCIUM 9.2 MG/DL (8.5-10.1); CARBON DIOXIDE 33 MMOL/L (21-32); CHLORIDE 99 MMOL/L (98-107); CREATININE SERUM 0.84 MG/DL (0.60-1.30); GFR ESTIMATED > 60; GLUCOSE 172 MG/DL (70-105); POTASSIUM 4.8 MMOL/L (3.6-5.0); SODIUM 145 MMOL/L (135-145)
--- NOTE | 2018-06-25 06:28 | Diagnostic Imaging Report ---
EXAMINATION: AP upright portable chest. INDICATION: Shortness of breath. COMPARISON: Chest radiograph performed on 04/04/2018. FINDINGS: Low lung volumes are demonstrated. There is mild left basilar atelectasis. There is suggestion of central vascular congestion and mild interstitial prominence. There is moderate cardiomegaly. No pneumothorax or large pleural effusion. No acute osseous abnormality is identified. IMPRESSION: Suggestion of central vascular congestion and interstitial prominence, which may reflect interstitial edema or may be secondary to poor inspiration. Moderate cardiomegaly. Dictated by: Dictated on workstation # [id number]
[2018-06-25] MEDS: RT-ALBUTEROL/IPRATROPIUM 3 ML (DUONEB) VIAL INH SCH ×4 (07:30→20:02)
[2018-06-25] MEDS ORDERED: FAMO20TA3 PO (08:50)
[2018-06-25] MEDS ORDERED: METO-387 PO (08:50)
[2018-06-25] MEDS ORDERED: ACET-2267 PO (08:50)
[2018-06-25] MEDS ORDERED: ASPI-983 PO (08:50)
[2018-06-25] MEDS ORDERED: POLY17PO6 PO (08:50)
[2018-06-25] MEDS ORDERED: SERT100T8 PO (08:50)
[2018-06-25] MEDS ORDERED: LOPE2TAB34 PO (08:50)
[2018-06-25] MEDS ORDERED: QUET50TA PO (08:50)
[2018-06-25] MEDS ORDERED: HYDR28.3 TP ×2 (08:50)
[2018-06-25] MEDS ORDERED: MICO5POW6 TOP (08:50)
[2018-06-25] MEDS ORDERED: LORA0.5T PO (08:50)
[2018-06-25] MEDS ORDERED: TR1C15 TP (08:50)
[2018-06-25] MEDS ORDERED: FOLI0.4T2 PO (08:50)
[2018-06-25] MEDS ORDERED: HALO5TAB PO (08:50)
[2018-06-25] MEDS ORDERED: ATOR40TA PO (08:50)
[2018-06-25] MEDS ORDERED: QUET300T2 PO (08:54)
--- NOTE | 2018-06-25 08:55 | NUR ---
UPDATED MED REC WITH MEDICATION REVIEW REPORT FROM [employer].
--- NOTE | 2018-06-25 08:57 | Diagnostic Imaging Report ---
INDICATION: Shortness of air. TECHNIQUE: Single view chest 4:12 AM. CORRELATION STUDY: 06/24/2018 FINDINGS: Limited depth of inspiration. However, the heart size and vasculature do appear to be enlarged and prominent. No definitive consolidating infiltrate. IMPRESSION: 1. Limited depth of inspiration. There does however appear to be component of underlying pulmonary vascular congestion. Followup imaging as clinically warranted. Dictated by: Dictated on workstation # [id number]
--- NOTE | 2018-06-25 15:17 | NUR ---
Initial visit with pt's sister, Consuelo and niece, Yasir (sp?). Consuelo mentioned that the pt has Schizophrenia and has been off his medications for several days. Pt was pleasant and welcoming.
--- NOTE | 2018-06-25 15:52 | Pulmonary Consultation ---
History of Present Illness History of Present Illness Date of Consultation 06/25/18 15:46 Time Seen by Provider: 15:47 Date of Admission History of Present Illness 52yo with hx of COPD, morbid obesity, pneumonia, schizophrenia presented to [facility] ED secondary to worsening SOB. While in ED pt had SVNs, and steroids. Pt's oxygen decreases into 80's when he is sleeping and had witnessed snoring, and apnea by RN. pt denies CP. Pt was placed on oxygen and transferred here for further treatment. I am consulted for pulmonary management. Allergies and Home Medications Allergies Coded Allergies: No Known Drug Allergies (Unverified , 04/04/18) Home Medications Acetaminophen 500 Mg Tablet, 1,000 MG PO Q8H PRN for PAIN-MILD, (Reported) TAKES 2 (500MG) TABLETS Acetaminophen 500 Mg Tablet, 1,000 MG PO Q8H PRN for PAIN-MILD, (Reported) Aspirin 81 Mg Tab.chew, 81 MG PO DAILY Prescribed by: KIRBY ALEXIS on 04/05/18 1145 Aspirin 81 Mg Tablet.dr, 81 MG PO DAILY, (Reported) Atorvastatin Calcium 40 Mg Tablet, 40 MG PO HS Prescribed by: KIRBY ALEXIS on 04/05/18 1145 Atorvastatin Calcium 40 Mg Tablet, 40 MG PO HS, (Reported) Azithromycin 250 Mg Tablet, 250 MG PO DAILY Prescribed by: KIRBY ALEXIS on 04/05/18 1145 Cephalexin 500 Mg Capsule, 500 MG PO BID Prescribed by: KIRBY ALEXIS on 04/05/18 1145 Famotidine 20 Mg Tablet, 20 MG PO DAILY, (Reported) Famotidine 20 Mg Tablet, 20 MG PO DAILY, (Reported) Folic Acid 0.4 Mg Tablet, 0.8 MG PO DAILY, (Reported) TAKES 2 (0.4MG) TABLETS Folic Acid 0.4 Mg Tablet, 0.8 MG PO DAILY, (Reported) Haloperidol 5 Mg Tablet, 5 MG PO HS, (Reported) Haloperidol 5 Mg Tablet, 5 MG PO HS, (Reported) Hydrocortisone 28.35 Gm Cream..g., TP Q8H PRN for RASH, (Reported) APPLY TO FACE Hydrocortisone 28.35 Gm Cream..g., TP Q8H PRN for RASH, (Reported) 1% APPLY TO FACE Hydrocortisone 28.35 Gm Cream..g., TP UD PRN for RASH, (Reported) 2.5% APPLY TO FACE Loperamide HCl 2 Mg Capsule, 2 MG PO UD PRN for DIARRHEA, (Reported) NOT TO EXCEED 8 TABS IN 24 HOURS Loperamide HCl 2 Mg Tablet, PO UD PRN for DIARRHEA, (Reported) NOT TO EXCEED 8 TABS IN 24 HOURS Lorazepam 0.5 Mg Tablet, 0.5 MG PO BID, (Reported) Lorazepam 0.5 Mg Tablet, 0.5 MG PO BID, (Reported) Metoprolol Succinate 25 Mg Tab.er.24h, 25 MG PO DAILY Prescribed by: KIRBY ALEXIS on 04/05/18 1145 Metoprolol Succinate 25 Mg Tab.er.24h, 25 MG PO DAILY, (Reported) HOLD IF SBP IS <100 OR PULSE IS <60 Miconazole 5 Gm Powder, TOP Q12H PRN for GAULDING/REDNESS, (Reported) APPLY TO GLUTEAL FOLDS/ GROIN AREA Miconazole 5 Gm Powder, TOP Q12H PRN for GAULDING/REDNESS, (Reported) Polyethylene Glycol 3350 17 Gm Powd.pack, 17 GM PO DAILY, (Reported) Polyethylene Glycol 3350 17 Gm Powd.pack, 17 GM PO DAILY, (Reported) Quetiapine Fumarate 300 Mg Tablet, 150 MG PO HS, (Reported) TAKES 1/2 (300MG) TABLET Quetiapine Fumarate 50 Mg Tablet, 50 MG PO DAILY, (Reported) Quetiapine Fumarate 50 Mg Tablet, 50 MG PO DAILY, (Reported) Quetiapine Fumarate 300 Mg Tablet, 150 MG PO HS, (Reported) TAKES 1/2 (300MG) TABLET Sertraline HCl 100 Mg Tablet, 100 MG PO DAILY, (Reported) Sertraline HCl 100 Mg Tablet, 100 MG PO DAILY, (Reported) Triamcinolone Acet 15 Gm Cr, TP DAILY PRN for RASH, (Reported) Triamcinolone Acet 15 Gm Cr, TP DAILY PRN for RASH, (Reported) Past Oobyent-Rhoefh-Mknsss Hx Past Med/Social Hx: Reviewed Nursing Past Med/Soc Hx Patient Social History Recent Foreign Travel: No Contact w/Someone Who Travel: No Recent Infectious Disease Expo: No Review of Systems Time Seen by Provider: 05:45 Constitutional: Sweats, Weakness, Malaise; No: Fever, Chills, Other Eyes: No: Pain, Vision change, Conjunctivae inflammation, Eyelid inflammation, Other, Redness ENT: Nose congestion; No: Ear pain, Ear discharge, Nose pain, Nose discharge, Mouth pain, Mouth swelling, Throat pain, Throat swelling, Other Respiratory: Cough, Dry, Shortness of breath, SOB with excertion Cardiovascular: Paroxysmal Noc. Dyspnea Gastrointestinal: Constipation; No: Nausea, Vomiting, Abdominal Pain, Diarrhea, Melena, Hematochezia, Other Sepsis Event Evaluation Height, Weight, BMI Height: 5'10.00" Weight: 290lbs. 8.0oz. 131.937742ow; 41.7 BMI Method:Stated Exam Exam Vital Signs Date Time Temp Pulse Resp B/P (MAP) Pulse Ox O2 Delivery O2 Flow Rate FiO2 06/25/18 14:40 95 OxyMask 6.00 06/25/18 13:01 90 06/25/18 11:25 98.0 88 16 120/59 (79) 95 OxyMask 6.00 06/25/18 10:58 96 OxyMask 6.00 06/25/18 08:26 97.4 90 16 132/71 (91) 95 OxyMask 3.00 06/25/18 08:00 96 OxyMask 6.00 06/25/18 07:31 95 OxyMask 6.00 06/25/18 07:00 95 06/25/18 04:20 96.8 86 12 141/83 (102) 97 OxyMask 3.00 06/25/18 04:10 86 96 06/25/18 03:30 97 Non Rebreather 8.00 06/25/18 03:15 96.8 86 14 141/83 97 Non Rebreather 6.00 06/25/18 03:14 Nasal Cannula 3.00 06/25/18 00:40 97.6 97 24 139/69 (92) 97 Non Rebreather 06/24/18 22:12 97 Nasal Cannula 2.00 06/24/18 21:51 95 Room Air 2.00 06/24/18 21:41 97.5 79 20 124/67 (86) 95 Nasal Cannula 2.00 I & O 06/25/18 07:00 Intake Total 0 ml Balance 0 ml Height & Weight Height: 5'10.00" Weight: 290lbs. 8.0oz. 131.966841ve; 41.7 BMI Method:Stated General Appearance: No Apparent Distress (wearing nasal cannula but speaking in full sentences, appears mildly drowsy although his eyes are open spontaneously) HEENT: Moist Mucous Membranes Neck: Supple (JVD is not appreciable although patient has a large neck) Respiratory: Decreased Breath Sounds, Other (slightly decreased breath sounds bilaterally with no significant adventitious noises appreciable) Cardiovascular: Regular Rate, Rhythm, No Edema, Normal Peripheral Pulses Capillary Refill: Less Than 3 Seconds Gastrointestinal: non tender, soft Extremity: Normal Capillary Refill, Normal Inspection Neurologic/Psychiatric: Alert, Oriented x3, Other (patient is awake and conversant, he appears in no visible discomfort in no respiratory distress, he does know the city but he does not know the year) Skin: Warm/Dry Lymphatic: No Adenopathy Results Lab Laboratory Tests 06/24/18 22:00 06/25/18 04:30 Assessment/Plan Assessment/Plan Acute respiratory distress -Check ABG -Check CTA of chest r/o PE COPDAE -Solumedrol -SVNs Mobid obesity r/o obesity hypoventilation syndrome. NSTEMI probably secondary to hypoxia -PT denies CP -R/o PE PUlmonary edema with increased BNP -CAMERON Drew DO June 25, 2018 15:52
--- NOTE | 2018-06-25 16:36 | History & Physical-Hospitalist ---
History of Present Illness HPI/Chief Complaint The patient is a 52-year-old white male who was seen in the [facility] emergency room last night and transferred here for further treatment and evaluation. He presented there with shortness of breath. He was known to have a past history of sleep apnea pneumonia and schizophrenia. His family states that several years ago they were told at the [facility] that he had had a previous stroke. They did not have any idea when that might have happened although his schizophrenia was poorly controlled and it would have been easy to miss Source: patient, family Exam Limitations: no limitations Date Seen 06/25/18 Time Seen by a Provider: 16:33 Attending Physician Randy Silverio MD PCP Andrey Meier MD Referring Physician Date of Admission June 25, 2018 at 01:03 Home Medications & Allergies Home Medications Reviewed patient Home Medication Reconciliation performed by pharmacy medication reconciliations personnel and payroll technician and/or nursing. Patients Allergies have been reviewed. Allergies Allergies Coded Allergies No Known Drug Allergies (Unverified04/04/18) Past Xfcvjmo-Eezkes-Ztsayw Hx Past Med/Social Hx: Reviewed Nursing Past Med/Soc Hx Patient Social History Recent Foreign Travel: No Contact w/other who traveled: No Recent Infectious Disease Expo: No Review of Systems Constitutional: see HPI EENTM: no symptoms reported Respiratory: see HPI, dyspnea on exertion, short of breath Cardiovascular: no symptoms reported Gastrointestinal: no symptoms reported Genitourinary: no symptoms reported Musculoskeletal: muscle weakness Skin: no symptoms reported Psychiatric/Neurological: Other (odd affect) Physical Exam Physical Exam Vital Signs Vital Signs - First Documented 06/24/18 06/26/18 21:41 08:37 Temp 97.5 Pulse 79 Resp 20 B/P (MAP) 124/67 (86) Pulse Ox 95 O2 Delivery Nasal Cannula O2 Flow Rate 2.00 FiO2 45 Capillary Refill : Less Than 3 SecondsLess Than 3 Seconds Height, Weight, BMI Height: 5'10.00" Weight: 290lbs. 8.0oz. 131.709667ur; 41.7 BMI Method:Stated General Appearance: No Apparent Distress, WD/WN Results Results/Procedures Labs Laboratory Tests 06/24/18 22:00 06/25/18 04:30 06/26/18 04:56 Patient resulted labs reviewed. Assessment/Plan Admission Diagnosis 1.morbid obesity. 2.hypercapnia Admission Status: Inpatient Order (span 2 midnights) Reason for Inpatient Admission: Frandy. project in improving pulmonary function Clinical Quality Measures DVT/VTE Risk/Contraindication: Risk Factor Score Per Nursin RFS Level Per Nursing on Admit: 4+=Very High RANDY SILVERIO MD June 25, 2018 16:36
[2018-06-25] MEDS: methylPREDNISolone 40 MG/ML (Solu-MEDROL) VIAL IV SCH (17:38)
--- NOTE | 2018-06-25 20:00 | Diagnostic Imaging Report ---
Clinical indication: Patient with shortness of air. Rule out pulmonary embolism. Exam: CT angiogram of the chest performed with 100 cc Omnipaque 350 IV contrast. Coronal and oblique MIP images of the vasculature were created to better evaluate anatomy. Comparison: Chest x-ray dated 06/25/2018. Findings: There is volume loss involving both lungs most pronounced involving both lower lobes. There is patchy consolidation and parenchymal band involving both lower lobes most likely representing atelectasis. There is also mild groundglass opacification involving both upper lobes, lingula and middle lobe likely representing atelectasis more so than infiltrate. There is no pleural effusion or pneumothorax. Pulmonary bronchi show no significant abnormality. The right and left main pulmonary arteries and segmental pulmonary arteries are patent with no evidence of pulmonary embolism. More distal pulmonary artery branches are obscured by atelectasis and streak artifact. There is no thoracic aortic aneurysm or dissection. There are multiple mediastinal lymph nodes seen which are less than 1 cm in short axis. Small pericardial fluid seen. There is a 2.1 cm stone within the decompressed gallbladder. The remainder of the visualized upper abdominal structures are unremarkable. There is no significant bony abnormalities seen. Impression: 1. There is no evidence of pulmonary emboli or thoracic aortic aneurysm or dissection, as visualized. 2: There is low lung volumes bilaterally with diffuse atelectasis and patchy consolidation which is most pronounced in both lung bases. Although the lung findings are suspected to represent atelectasis, superimposed infiltrate can't be completely excluded. 3: Multiple mediastinal lymph nodes which are not significantly enlarged. 4: Cholelithiasis with no CT evidence of cholecystitis. Dictated by: Dictated on workstation # [id number]
[2018-06-25] MEDS: RT-ADVAIR HFA 115/21 MCG PER PUFF IH SCH (20:01)
[2018-06-25 20:14] LABS: ABG BASE EXCESS 15.2 MMOL/L (-2.5-2.5); ABG OXYGEN SATURATION 96 % (94-100); ABG PO2 93 MMHG (79-93); ABG TCO2 44.4 MMOL/L (21.0-31.0)
[2018-06-25 20:19] LABS: ABG PCO2 83 MMHG (35-45); ABG PH 7.32 (7.37-7.43)
[2018-06-25 20:20] LABS: ALLENS TEST YES-POS; INSPIRED O2 6L; PATIENT TEMP 98.1; VENTILATOR NO
--- NOTE | 2018-06-25 20:22 | NUR ---
THIS NURSE NOTIFIED DR PALENCIA OF CRITICAL ABG RESULT. ORDER FOR BIPAP AT 15 OVER 8 TONIGHT. RT NOTIFIED
[2018-06-25] MEDS: MONTELUKAST 10 MG (SINGULAIR) TAB PO SCH (20:28)
[2018-06-26] VITALS (7 sets, daily range): BP systolic 97–120; BP diastolic 59–69
[2018-06-26] MEDS: methylPREDNISolone 40 MG/ML (Solu-MEDROL) VIAL IV SCH ×4 (00:35→17:59)
[2018-06-26 05:28] LABS: BASOPHILS % (AUTO) 0 % (0-10); EOSINOPHILS % (AUTO) 0 % (0-10); HEMATOCRIT 49 % (40-54); HEMOGLOBIN 15.1 G/DL (13.3-17.7); LYMPHOCYTES # (AUTO) 0.5 X 10^3 (1.0-4.0); LYMPHOCYTES % (AUTO) 5 % (12-44); MEAN CORPUSCULAR HEMOGLOBIN 31 PG (25-34); MEAN CORPUSCULAR HGB CONC 31 G/DL (32-36); MEAN CORPUSCULAR VOLUME 100 FL (80-99); MEAN PLATELET VOLUME 10.1 FL (7.4-10.4); MONOCYTES # (AUTO) 0.4 X 10^3 (0.0-1.0); MONOCYTES % (AUTO) 4 % (0-12); NEUTROPHILS # (AUTO) 9.5 X 10^3 (1.8-7.8); NEUTROPHILS % (AUTO) 92 % (42-75); PLATELET COUNT 216 10^3/uL (130-400); RED CELL DISTRIBUTION WIDTH 16.9 % (10.0-14.5); WHITE BLOOD COUNT 10.3 10^3/uL (4.3-11.0)
[2018-06-26 05:49] LABS: BUN/CREATININE RATIO 27; CALCIUM 9.5 MG/DL (8.5-10.1); CARBON DIOXIDE 35 MMOL/L (21-32); CHLORIDE 97 MMOL/L (98-107); CREATININE SERUM 0.79 MG/DL (0.60-1.30); GFR ESTIMATED > 60; GLUCOSE 140 MG/DL (70-105); MAGNESIUM 2.5 MG/DL (1.8-2.4); POTASSIUM 4.7 MMOL/L (3.6-5.0); SODIUM 143 MMOL/L (135-145)
[2018-06-26] MEDS: RT-ADVAIR HFA 115/21 MCG PER PUFF IH SCH ×2 (08:34→22:04)
[2018-06-26] MEDS: RT-ALBUTEROL/IPRATROPIUM 3 ML (DUONEB) VIAL INH SCH ×2 (08:34→20:45)
--- NOTE | 2018-06-26 10:14 | Progress Note-Hospitalist ---
Progress Note Progress Notes/Assess & Plan Date Seen 06/26/18 Time Seen by Provider: 10:11 Assessment & Plan The patient was in bed and wearing his BiPAP mask. He reported he did not sleep much during the night. He was not able to wear his mask while in bed. Physical exam: He was alert and answered questions well. Lungs showed clear breath sounds. CV was regular. Abdomen was quite large. Impression: Morbid obesity. 2.hypercapnia, suspect narcolepsy. Plan: Await results of blood gas. Will discuss with KAMRON Pak MD June 26, 2018 10:14
[2018-06-26 10:20] LABS: ABG BASE EXCESS 14.6 MMOL/L (-2.5-2.5); ABG OXYGEN SATURATION 98 % (94-100); ABG PCO2 52 MMHG (35-45); ABG PH 7.49 (7.37-7.43); ABG PO2 100 MMHG (79-93); ABG TCO2 40.9 MMOL/L (21.0-31.0); ALLENS TEST POSITIVE
[2018-06-26 10:21] LABS: INSPIRED O2 BIPAP 45%; PATIENT TEMP 96.9; VENTILATOR NO
--- NOTE | 2018-06-26 10:51 | NUR ---
DR PALENCIA GAVE VERBAL ORDERS TO TAKE PT OFF BIPAP AND TO PUT PT ON VAPOTHERM DURING THE DAY AND BIPAP AT HS AND PRN. RT NOTIFIED.
[2018-06-26] MEDS: LORATADINE (CLARITIN) 10 MG TAB PO SCH (11:03)
--- NOTE | 2018-06-26 11:19 | Pulmonary Progress Note ---
Subjective Time Seen by a Provider: 11:26 Subjective/Events-last exam Pt is currently agitated secondary to BiPAP. Sepsis Event Evaluation Height, Weight, BMI Height: 5'.00" Weight: 290lbs. 8.0oz. 131.788430rj; 41.7 BMI Method:Stated Exam Exam Vital Signs Date Time Temp Pulse Resp B/P (MAP) Pulse Ox O2 Delivery O2 Flow Rate FiO2 06/26/18 08:37 95 NIV Bilevel 45 06/26/18 08:34 66 14 95 45.00 06/26/18 08:05 98.2 67 15 109/66 (80) 97 NIV Bilevel 06/26/18 07:00 67 06/26/18 04:00 98.2 72 25 104/69 (81) 97 NIV Bilevel 06/26/18 02:53 75 19 98 45.00 06/26/18 01:00 73 06/26/18 00:00 97.2 90 25 107/67 (80) 99 NIV Bilevel 06/25/18 21:57 81 19 92 45.00 06/25/18 20:40 97.4 85 20 119/69 (86) 92 OxyMask 6.00 06/25/18 20:17 94 OxyMask 6.00 06/25/18 20:09 91 OxyMask 6.00 06/25/18 20:00 OxyMask 6.00 06/25/18 19:00 86 06/25/18 16:20 98.0 77 20 110/63 (79) 95 OxyMask 6.00 06/25/18 14:40 95 OxyMask 6.00 06/25/18 13:01 90 06/25/18 11:25 98.0 88 16 120/59 (79) 95 OxyMask 6.00 I & O 06/26/18 07:00 Intake Total 775 ml Output Total 475 ml Balance 300 ml Height & Weight Height: 5'.00" Weight: 290lbs. 8.0oz. 131.644178jt; 41.7 BMI Method:Stated General Appearance: WD/WN, Anxious, Chronically ill, Moderate Distress, Obese HEENT: Moist Mucous Membranes Neck: Supple (JVD is not appreciable although patient has a large neck) Respiratory: Accessory Muscle Use, Decreased Breath Sounds, Other (slightly decreased breath sounds bilaterally with no significant adventitious noises appreciable) Cardiovascular: Regular Rate, Rhythm, No Edema, Normal Peripheral Pulses Capillary Refill: Less Than 3 Seconds Neurologic/Psychiatric: Alert, Other (patient is awake and conversant, he appears in no visible discomfort in no respiratory distress, he does know the city but he does not know the year) Skin: Warm/Dry Results Lab Laboratory Tests 06/24/18 22:00 06/25/18 04:30 06/26/18 04:56 Assessment/Plan Assessment/Plan Acute on chronic respiratory distress -ABG - C02 83 -Pt is currently on vent to mask ( improving with machine) -Repeat ABG and trial pt on Vapootherm -CTA of chest is neg for PE however does shows chronic changes and atelectasis -No leukocytosis and no fever -Pt is on Solumedrol -PT would benefit from home vent to mask -Pt was just in hospital 04/23. He is at risk of multiple recurrent hospitalizations and BiPAP will help decrease readmission rate. COPDAE -Solumedrol -SVNs Q4 Hx of diastolic CHF -Check echo -Continue Lasix PUlmonary edema with increased BNP -Lasix Mobid obesity with obesity hypoventilation syndrome. NSTEMI probably secondary to hypoxia CAMERON PALENCIA DO June 26, 2018 11:19
[2018-06-26] MEDS: MONTELUKAST 10 MG (SINGULAIR) TAB PO SCH (20:41)
--- NOTE | 2018-06-26 20:45 | NUR ---
PLACED PT ON BIPAP PER ORDERS. PT C/O TOO MUCH AIR DESPITE CHANGE IN RISE TIME. PT ACHEIVING VT OF 1400ML ON 19/09, RISE TIME ADJUSTED TO 5 SEC AND PT NOT IN SYNC WITH BIPAP VT STILL GREATER THAN 1000ML. RISE TIME ADJUSTED TO 3 SEC FOR PT AND COMFORT AND PRESSURES ADJUSTED TO 12/6 AND PT IS CONSISTANTLY ACHIEVING VT GREATER THAN 650ML.
[2018-06-27 00:21] VITALS: BP 123/58
[2018-06-27] MEDS: methylPREDNISolone 40 MG/ML (Solu-MEDROL) VIAL IV SCH ×4 (01:51→19:12)
[2018-06-27 04:00] VITALS: BP 120/59
--- NOTE | 2018-06-27 04:57 | Pulmonary Progress Note ---
Subjective Time Seen by a Provider: 04:57 Subjective/Events-last exam Pt states he feels better. Sepsis Event Evaluation Height, Weight, BMI Height: 5'10.00" Weight: 290lbs. 8.0oz. 131.637160tm; 41.7 BMI Method:Stated Exam Exam Vital Signs Date Time Temp Pulse Resp B/P (MAP) Pulse Ox O2 Delivery O2 Flow Rate FiO2 06/27/18 01:00 70 06/27/18 00:21 97.0 68 22 123/58 (79) 93 Vapotherm 50.00 30.00 06/26/18 20:45 67 15 96 35.00 06/26/18 20:00 NIV Bilevel 06/26/18 19:30 97.0 64 20 112/60 (77) 95 Vapotherm 45.00 30.00 06/26/18 19:19 73 06/26/18 17:23 97.8 120/62 (81) 06/26/18 15:25 97.2 75 20 97/59 (72) 96 Vapotherm 45.00 30.00 06/26/18 12:00 97.6 70 22 110/68 (82) 96 Nasal Cannula 6.00 06/26/18 08:37 95 NIV Bilevel 45 06/26/18 08:34 66 14 95 45.00 06/26/18 08:05 98.2 67 15 109/66 (80) 97 NIV Bilevel 06/26/18 08:00 NIV Bilevel 06/26/18 07:00 67 I & O 06/27/18 07:00 Intake Total 995 ml Output Total 515 ml Balance 480 ml Height & Weight Height: 5'10.00" Weight: 290lbs. 8.0oz. 131.746353zs; 41.7 BMI Method:Stated General Appearance: No Apparent Distress, WD/WN, Anxious, Chronically ill, Obese HEENT: Moist Mucous Membranes Neck: Full Range of Motion, Non Tender, Supple Respiratory: Accessory Muscle Use, Decreased Breath Sounds, Other (slightly decreased breath sounds bilaterally with no significant adventitious noises appreciable) Cardiovascular: Regular Rate, Rhythm, No Edema, Normal Peripheral Pulses Capillary Refill: Less Than 3 Seconds Gastrointestinal: non tender, soft Extremity: No Pedal Edema Neurologic/Psychiatric: Alert, Other (patient is awake and conversant, he appears in no visible discomfort in no respiratory distress, he does know the city but he does not know the year) Skin: Warm/Dry Results Lab Laboratory Tests 06/26/18 04:56 Assessment/Plan Assessment/Plan Acute on chronic respiratory distress -Currently on Vapotherm -Will give lasix 40mg IV X 1 -ABG - C02 83 -CTA of chest is neg for PE however does shows chronic changes and atelectasis -No leukocytosis and no fever -Solumedrol -PT would benefit from home vent to mask -Pt was just in hospital 04/23. He is at risk of multiple recurrent hospitalizations and BiPAP will help decrease readmission rate. COPDAE -Solumedrol -SVNs Q4 Hx of diastolic CHF -Check echo -Continue Lasix PUlmonary edema with increased BNP -Lasix Mobid obesity with obesity hypoventilation syndrome. NSTEMI probably secondary to hypoxia CAMERON PALENCIA DO June 27, 2018 04:57
[2018-06-27] MEDS ORDERED: FUROSEMIDE 40 MG/4 ML INJ (LASIX) IVP ONE (05:00)
[2018-06-27 06:00] LABS: BASOPHILS % (AUTO) 0 % (0-10); EOSINOPHILS % (AUTO) 0 % (0-10); HEMATOCRIT 50 % (40-54); HEMOGLOBIN 15.8 G/DL (13.3-17.7); LYMPHOCYTES # (AUTO) 0.6 X 10^3 (1.0-4.0); LYMPHOCYTES % (AUTO) 5 % (12-44); MEAN CORPUSCULAR HEMOGLOBIN 31 PG (25-34); MEAN CORPUSCULAR HGB CONC 31 G/DL (32-36); MEAN CORPUSCULAR VOLUME 98 FL (80-99); MEAN PLATELET VOLUME 10.2 FL (7.4-10.4); MONOCYTES # (AUTO) 0.7 X 10^3 (0.0-1.0); MONOCYTES % (AUTO) 5 % (0-12); NEUTROPHILS # (AUTO) 10.7 X 10^3 (1.8-7.8); NEUTROPHILS % (AUTO) 90 % (42-75); PLATELET COUNT 247 10^3/uL (130-400)
[2018-06-27 06:22] LABS: BUN/CREATININE RATIO 31; CALCIUM 9.6 MG/DL (8.5-10.1); CARBON DIOXIDE 30 MMOL/L (21-32); CHLORIDE 99 MMOL/L (98-107); CREATININE SERUM 0.81 MG/DL (0.60-1.30); GFR ESTIMATED > 60; GLUCOSE 144 MG/DL (70-105); MAGNESIUM 2.6 MG/DL (1.8-2.4); PHOSPHORUS 2.4 MG/DL (2.3-4.7); POTASSIUM 4.5 MMOL/L (3.6-5.0); SODIUM 141 MMOL/L (135-145)
[2018-06-27 07:44] VITALS: BP 135/70
[2018-06-27] MEDS: RT-ADVAIR HFA 115/21 MCG PER PUFF IH SCH ×2 (08:03→18:38)
[2018-06-27] MEDS: RT-ALBUTEROL/IPRATROPIUM 3 ML (DUONEB) VIAL INH SCH ×4 (08:03→18:37)
[2018-06-27] MEDS: LORATADINE (CLARITIN) 10 MG TAB PO SCH (09:07)
--- NOTE | 2018-06-27 12:01 | Diagnostic Imaging Report ---
INDICATION: Pneumonia. TIME OF EXAM: 10:53 AM CORRELATION is made with prior study from 06/25/2018. FINDINGS: The heart is enlarged. There is a zone of linear atelectasis in the right base. No failure is seen. There is no effusion or pneumothorax. IMPRESSION: Cardiomegaly with right basilar discoid atelectasis. Dictated by: Dictated on workstation # [id number]
--- NOTE | 2018-06-27 14:56 | NUR ---
CM/SS. Patient has established placement with [facility] and plan is for his return there when discharged. He was there on a regular contractual stay and not skilled. [facility] can sometimes get reimbursed for a few days of skilled if they provide therapy. A three midnight stay is not required for benefit access. Discussed Dr. Gtz's recommendation for vent to mask. [facility] uses [facility] [employer] and DME and Admin/[employer]eren[facility] has confirmed this agency will deliver the vent to mask to [facility] tomorrow. This was requested so that it will be available for patient's discharge should it occur the holiday weekend of . Physician order for the vent to mask will be provided to [facility]. Continue to monitor patient's progress as it pertains to discharge care plan. Work in partnership with [facility] regarding any orders for therapies or skilled-like care.
--- NOTE | 2018-06-27 15:36 | Progress Note-Hospitalist ---
Progress Note Progress Notes/Assess & Plan Date Seen 06/27/18 Time Seen by Provider: 15:31 Assessment & Plan The patient's affect and demeanor are very odd today. He remains a problem relative to oxygen delivery. In addition it would appear his schizophrenia is also a compounding factor. Physical exam: He is alert but seems confused. Lungs show shallow respirations and distant breath sounds. CV is regular. Abdomen is quite large. Impression: Hypoxia. 2.morbid obesity 3.schizophrenia. 4.sleep apnea/narcolepsy. KAMRON SILVERIO MD June 27, 2018 15:36
[2018-06-27 15:47] VITALS: BP 123/63
[2018-06-27] MEDS: MONTELUKAST 10 MG (SINGULAIR) TAB PO SCH (20:02)
[2018-06-28 00:13] VITALS: BP 115/58
[2018-06-28] MEDS: methylPREDNISolone 40 MG/ML (Solu-MEDROL) VIAL IV SCH ×4 (00:25→18:02)
[2018-06-28 05:23] LABS: BASOPHILS % (AUTO) 0 % (0-10); EOSINOPHILS % (AUTO) 0 % (0-10); HEMATOCRIT 52 % (40-54); HEMOGLOBIN 16.4 G/DL (13.3-17.7); LYMPHOCYTES # (AUTO) 0.4 X 10^3 (1.0-4.0); LYMPHOCYTES % (AUTO) 4 % (12-44); MEAN CORPUSCULAR HEMOGLOBIN 31 PG (25-34); MEAN CORPUSCULAR HGB CONC 32 G/DL (32-36); MEAN CORPUSCULAR VOLUME 96 FL (80-99); MONOCYTES # (AUTO) 0.6 X 10^3 (0.0-1.0); MONOCYTES % (AUTO) 6 % (0-12); NEUTROPHILS # (AUTO) 9.9 X 10^3 (1.8-7.8); NEUTROPHILS % (AUTO) 91 % (42-75); PLATELET COUNT 232 10^3/uL (130-400); RED CELL DISTRIBUTION WIDTH 16.9 % (10.0-14.5)
[2018-06-28 05:57] LABS: BUN/CREATININE RATIO 34; CALCIUM 9.3 MG/DL (8.5-10.1); CARBON DIOXIDE 31 MMOL/L (21-32); CHLORIDE 98 MMOL/L (98-107); CREATININE SERUM 0.93 MG/DL (0.60-1.30); GFR ESTIMATED > 60; GLUCOSE 162 MG/DL (70-105); POTASSIUM 4.2 MMOL/L (3.6-5.0); SODIUM 141 MMOL/L (135-145)
--- NOTE | 2018-06-28 06:03 | Pulmonary Progress Note ---
Subjective Time Seen by a Provider: 06:03 Subjective/Events-last exam No complications noted. Sepsis Event Evaluation Height, Weight, BMI Height: 5'10.00" Weight: 290lbs. 8.0oz. 131.601879kr; 41.7 BMI Method:Stated Exam Exam Vital Signs Date Time Temp Pulse Resp B/P (MAP) Pulse Ox O2 Delivery O2 Flow Rate FiO2 06/28/18 03:09 68 26 91 35.00 06/28/18 00:13 97.1 76 18 115/58 (77) 94 NIV Bilevel 06/27/18 22:07 71 23 93 35.00 06/27/18 20:00 Vapotherm 30.00 50 06/27/18 18:38 93 Vapotherm 10.00 40 06/27/18 15:47 97.3 59 18 123/63 (83) 92 Vapotherm 40.00 10.00 06/27/18 15:33 91 Vapotherm 10.00 40 06/27/18 12:50 73 06/27/18 11:14 95 Vapotherm 20.00 50 06/27/18 08:15 Vapotherm 30.00 50 06/27/18 08:08 93 Vapotherm 20.00 50 06/27/18 08:03 96 Vapotherm 30.00 50 06/27/18 07:44 97.4 67 20 135/70 (91) 93 Vapotherm 50.00 30.00 06/27/18 07:00 66 I & O 06/28/18 07:00 Intake Total 1226 ml Output Total 1325 ml Balance -99 ml Height & Weight Height: 5'10.00" Weight: 290lbs. 8.0oz. 131.897463fl; 41.7 BMI Method:Stated General Appearance: No Apparent Distress (wearing nasal cannula but speaking in full sentences, appears mildly drowsy although his eyes are open spontaneously) HEENT: Moist Mucous Membranes Neck: Supple (JVD is not appreciable although patient has a large neck) Respiratory: Decreased Breath Sounds, Other (slightly decreased breath sounds bilaterally with no significant adventitious noises appreciable) Cardiovascular: Regular Rate, Rhythm, No Edema, Normal Peripheral Pulses Capillary Refill: Less Than 3 Seconds Gastrointestinal: non tender, soft Extremity: Normal Capillary Refill, Normal Inspection Neurologic/Psychiatric: Alert, Oriented x3, Other (patient is awake and conversant, he appears in no visible discomfort in no respiratory distress, he does know the city but he does not know the year) Skin: Warm/Dry Lymphatic: No Adenopathy Results Lab Laboratory Tests 06/27/18 05:10 06/28/18 04:49 Assessment/Plan Assessment/Plan Acute on chronic respiratory distress -Currently on vent to mask -ABG - C02 83 -CTA of chest is neg for PE however does shows chronic changes and atelectasis -No leukocytosis and no fever -Solumedrol -PT would benefit from home vent to mask -Pt was just in hospital 04/23. He is at risk of multiple recurrent hospitalizations and BiPAP will help decrease readmission rate. COPDAE -Solumedrol -SVNs Q4 CHF EF 40-45% and grade 1 diastolic dysfunction PUlmonary edema with increased BNP -Lasix Mobid obesity with obesity hypoventilation syndrome. NSTEMI probably secondary to hypoxia CAMERON PALENCIA DO June 28, 2018 06:03
[2018-06-28] MEDS ORDERED: FUROSEMIDE 40 MG/4 ML INJ (LASIX) IVP ONE (06:15)
[2018-06-28] MEDS ORDERED: KCL 20 MEQ TAB (K-DUR) PO ONE (06:15)
[2018-06-28] MEDS: RT-ALBUTEROL/IPRATROPIUM 3 ML (DUONEB) VIAL INH SCH ×4 (06:39→19:18)
[2018-06-28] MEDS: RT-ADVAIR HFA 115/21 MCG PER PUFF IH SCH ×2 (06:39→19:18)
[2018-06-28 08:04] VITALS: BP 122/58
[2018-06-28] MEDS ORDERED: ENOXAPARIN 80 MG/0.8 ML (LOVENOX) SYR SC SCH (08:15)
[2018-06-28] MEDS: LORATADINE (CLARITIN) 10 MG TAB PO SCH (08:26)
[2018-06-28] MEDS: ENOXAPARIN 40 MG/0.4 ML (LOVENOX) SYR SC SCH ×2 (08:31→21:10)
--- NOTE | 2018-06-28 11:12 | Progress Note-Hospitalist ---
Progress Note Progress Notes/Assess & Plan Date Seen 06/28/18 Time Seen by Provider: 11:09 Assessment & Plan The patient is even more confused than usual today. He is speaking in nonsensical phrases and sentences. He is status from the pulmonary standpoint is also unclear. He is maintaining SaO2's with high flow. Physical exam: Lungs clear to auscultation without murmur or but distant breath sounds. CV is regular. Abdomen is quite obese. Impression: Schizophrenia. 2.history of previous stroke. 3.hypoxia. KAMRON SILVERIO MD June 28, 2018 11:12
--- NOTE | 2018-06-28 14:36 | NUR ---
CM/SS. Completed trilogy order with Dr. Gtz and his PROPERTY OFFICER Michelle. Provided for [facility] Admin/[employer]eren[employer] so that they could pursue getting the vent to mask at [place] in case of patient discharge and return over holiday weekend.
[2018-06-28 15:25] VITALS: BP 116/63
[2018-06-28] MEDS: MONTELUKAST 10 MG (SINGULAIR) TAB PO SCH (21:10)
[2018-06-29] MEDS: methylPREDNISolone 40 MG/ML (Solu-MEDROL) VIAL IV SCH (00:05)
[2018-06-29 00:45] VITALS: BP 131/61
--- NOTE | 2018-06-29 05:11 | Pulmonary Progress Note ---
Subjective Time Seen by a Provider: 05:07 Subjective/Events-last exam No complications noted. Sepsis Event Evaluation Height, Weight, BMI Height: 5'10.00" Weight: 290lbs. 8.0oz. 131.854599gq; 41.7 BMI Method:Stated Exam Exam Vital Signs Date Time Temp Pulse Resp B/P (MAP) Pulse Ox O2 Delivery O2 Flow Rate FiO2 06/29/18 04:16 62 12 94 35.00 06/29/18 02:33 67 22 95 35.00 06/29/18 00:45 96.0 67 21 131/61 (84) 96 Vapotherm 10.00 06/29/18 00:45 64 17 95 35.00 06/28/18 23:01 67 95 35 06/28/18 23:01 67 20 95 35.00 06/28/18 20:00 Vapotherm 10.00 40 06/28/18 19:18 94 Vapotherm 10.00 40 06/28/18 15:43 92 Vapotherm 10.00 40 06/28/18 15:25 97.4 66 20 116/63 (80) 93 Vapotherm 40.00 10.00 06/28/18 11:11 94 Vapotherm 10.00 40 06/28/18 08:04 97.5 64 22 122/58 (79) 97 NIV Bilevel 06/28/18 08:00 Vapotherm 10.00 40 06/28/18 06:40 66 20 93 35.00 I & O 06/29/18 07:00 Intake Total 1735 ml Output Total 1850 ml Balance -115 ml Height & Weight Height: 5'10.00" Weight: 290lbs. 8.0oz. 131.606514ty; 41.7 BMI Method:Stated General Appearance: No Apparent Distress HEENT: Moist Mucous Membranes Neck: Non Tender, Supple Respiratory: No Accessory Muscle Use, No Respiratory Distress, Decreased Breath Sounds Cardiovascular: Regular Rate, Rhythm, No Edema, Normal Peripheral Pulses Capillary Refill: Less Than 3 Seconds Gastrointestinal: non tender, soft Extremity: Normal Capillary Refill, Normal Inspection Neurologic/Psychiatric: Alert, Oriented x3, Other (patient is awake and conversant, he appears in no visible discomfort in no respiratory distress, he does know the city but he does not know the year) Skin: Warm/Dry Lymphatic: No Adenopathy Results Lab Laboratory Tests 5/23/19 05:10 06/28/18 04:49 Assessment/Plan Assessment/Plan Acute on chronic respiratory distress -Currently on Vapotherm - Switch to reg NC -Repeat CXR -ABG - C02 83 -CTA of chest is neg for PE however does shows chronic changes and atelectasis -No leukocytosis and no fever -Solumedrol - Change to prednisone taper -PT would benefit from home vent to mask -Pt was just in hospital 04/23. He is at risk of multiple recurrent hospitalizations and BiPAP will help decrease readmission rate. COPDAE -SVNs Q4 CHF EF 40-45% and grade 1 diastolic dysfunction PUlmonary edema with increased BNP -Lasix yesterday Mobid obesity with obesity hypoventilation syndrome. NSTEMI probably secondary to hypoxia CAMERON PALENCIA DO June 29, 2018 05:11
[2018-06-29 05:13] LABS: BASOPHILS % (AUTO) 0 % (0-10); EOSINOPHILS % (AUTO) 0 % (0-10); HEMATOCRIT 53 % (40-54); HEMOGLOBIN 16.7 G/DL (13.3-17.7); LYMPHOCYTES # (AUTO) 0.5 X 10^3 (1.0-4.0); LYMPHOCYTES % (AUTO) 4 % (12-44); MEAN CORPUSCULAR HEMOGLOBIN 30 PG (25-34); MEAN CORPUSCULAR HGB CONC 32 G/DL (32-36); MEAN CORPUSCULAR VOLUME 96 FL (80-99); MEAN PLATELET VOLUME 10.2 FL (7.4-10.4); MONOCYTES # (AUTO) 0.7 X 10^3 (0.0-1.0); MONOCYTES % (AUTO) 6 % (0-12); NEUTROPHILS % (AUTO) 90 % (42-75); PLATELET COUNT 232 10^3/uL (130-400); RED CELL DISTRIBUTION WIDTH 17.2 % (10.0-14.5); WHITE BLOOD COUNT 12.2 10^3/uL (4.3-11.0)
[2018-06-29 05:37] LABS: BUN/CREATININE RATIO 38; CALCIUM 9.3 MG/DL (8.5-10.1); CARBON DIOXIDE 30 MMOL/L (21-32); CHLORIDE 101 MMOL/L (98-107); CREATININE SERUM 0.86 MG/DL (0.60-1.30); GFR ESTIMATED > 60; GLUCOSE 170 MG/DL (70-105); MAGNESIUM 3.2 MG/DL (1.8-2.4); POTASSIUM 4.5 MMOL/L (3.6-5.0); SODIUM 142 MMOL/L (135-145)
[2018-06-29] MEDS: RT-ADVAIR HFA 115/21 MCG PER PUFF IH SCH ×2 (06:27→18:45)
[2018-06-29] MEDS: RT-ALBUTEROL/IPRATROPIUM 3 ML (DUONEB) VIAL INH SCH ×4 (06:27→18:45)
[2018-06-29] MEDS: ENOXAPARIN 40 MG/0.4 ML (LOVENOX) SYR SC SCH ×2 (08:10→20:35)
[2018-06-29] MEDS: LORATADINE (CLARITIN) 10 MG TAB PO SCH (08:10)
[2018-06-29] MEDS: predniSONE 10 MG TAB PO SCH (08:11)
[2018-06-29 08:24] VITALS: BP 116/70
--- NOTE | 2018-06-29 09:20 | Diagnostic Imaging Report ---
INDICATION: Shortness of air, followup. COMPARISON: June 27, 2018 TECHNIQUE: Single radiograph of the chest dated June 29, 2018. FINDINGS: The cardiac silhouette is enlarged, though stable. No significant pulmonary vascular congestion. Bibasilar linear interstitial opacities are present, slightly improved within the left lung base. No new focal pulmonary opacity. No pleural effusion. No pneumothorax. No acute osseous abnormality. IMPRESSION: 1. Low lung volumes with persistent bibasilar atelectasis and/or pneumonitis, minimally improved within the left lung base. 2. Remainder of the examination appears stable. Dictated by: Dictated on workstation # [id number]
--- NOTE | 2018-06-29 10:41 | Progress Note-Hospitalist ---
Subjective HPI/CC On Admission Date Seen by Provider: June 29, 2018 Time Seen by Provider: 09:50 The patient is a 52-year-old white male who was seen in the [facility] emergency room last night and transferred here for further treatment and evaluation. He presented there with shortness of breath. He was known to have a past history of sleep apnea pneumonia and schizophrenia. His family states that several years ago they were told at the [place] that he had had a previous stroke. They did not have any idea when that might have happened although his schizophrenia was poorly controlled and it would have been easy to miss Subjective/Events-last exam Patient voices no complaints denies shortness of breath eating and drinking without difficulty. He is confused not asking me if I know where he lives. He does state he believes he lives with his sister. This is not new for this patient. There've been no reported hallucinations or agitated behavior. Patient has history of schizophrenia and there is mention family was told he had a stroke at some point in the past per the [place] that he has no recollection of. Objective Exam Vital Signs Vital Signs Date Time Temp Pulse Resp B/P (MAP) Pulse Ox O2 Delivery O2 Flow Rate FiO2 06/29/18 08:24 97.7 59 16 116/70 (85) 97 Nasal Cannula 06/29/18 08:20 5.00 06/28/18 23:01 35 Capillary Refill : Less Than 3 SecondsLess Than 3 Seconds General Appearance: No Apparent Distress, Obese HEENT: Moist Mucous Membranes Neck: Non Tender, Supple Respiratory: No Accessory Muscle Use, No Respiratory Distress, Decreased Breath Sounds Cardiovascular: Regular Rate, Rhythm, No Edema, Normal Peripheral Pulses Gastrointestinal: Non Tender, Soft Extremity: Normal Capillary Refill, Normal Inspection Neurologic/Psychiatric: Alert, Oriented x3, Other (patient is awake and conversant, he appears in no visible discomfort in no respiratory distress, he does know the city but he does not know the year) Skin: Warm/Dry Lymphatic: No Adenopathy Results/Procedures Lab Laboratory Tests 06/29/18 04:50 Patient resulted labs reviewed. Assessment/Plan Assessment and Plan Assess & Plan/Chief Complaint A/P 1. Acute on chronic hypercapnic respiratory failure secondary to obesity hypoventilation syndrome and likely severe sleep apnea management per Dr. Gtz patient is been switched to oral prednisone currently there is no evidence for wheezing. 2. Schizophrenia the patient appears to be doing well off medication as he is on Seroquel and Haldol at bedtime that are significantly sedating we'll continue to hold. 3. History of hyperlipidemia we'll resume atorvastatin. 4. Questionable stroke in the past will resume baby aspirin daily. Clinical Quality Measures DVT/VTE Risk/Contraindication: Risk Factor Score Per Nursin RFS Level Per Nursing on Admit: 4+=Very High EMILY OSBORN MD June 29, 2018 10:41
[2018-06-29] MEDS: ASPIRIN 81 MG CHEW (CHILDREN'S ASA) PO SCH (10:45)
[2018-06-29 15:44] VITALS: BP 113/56
[2018-06-29] MEDS: ATORVASTATIN 40 MG (LIPITOR) TABLET PO SCH (20:39)
[2018-06-29] MEDS: MONTELUKAST 10 MG (SINGULAIR) TAB PO SCH (20:41)
[2018-06-29 23:30] VITALS: BP 111/59
[2018-06-30 05:10] LABS: BASOPHILS % (AUTO) 0 % (0-10); EOSINOPHILS % (AUTO) 0 % (0-10); HEMATOCRIT 50 % (40-54); HEMOGLOBIN 15.8 G/DL (13.3-17.7); LYMPHOCYTES # (AUTO) 0.8 X 10^3 (1.0-4.0); LYMPHOCYTES % (AUTO) 6 % (12-44); MEAN CORPUSCULAR HEMOGLOBIN 31 PG (25-34); MEAN CORPUSCULAR HGB CONC 32 G/DL (32-36); MEAN CORPUSCULAR VOLUME 97 FL (80-99); MEAN PLATELET VOLUME 9.8 FL (7.4-10.4); MONOCYTES # (AUTO) 1.2 X 10^3 (0.0-1.0); MONOCYTES % (AUTO) 9 % (0-12); NEUTROPHILS # (AUTO) 10.9 X 10^3 (1.8-7.8); NEUTROPHILS % (AUTO) 85 % (42-75); PLATELET COUNT 205 10^3/uL (130-400); RED CELL DISTRIBUTION WIDTH 16.9 % (10.0-14.5); WHITE BLOOD COUNT 12.8 10^3/uL (4.3-11.0)
[2018-06-30 05:33] LABS: BUN/CREATININE RATIO 37; CALCIUM 8.8 MG/DL (8.5-10.1); CARBON DIOXIDE 32 MMOL/L (21-32); CHLORIDE 101 MMOL/L (98-107); CREATININE SERUM 0.81 MG/DL (0.60-1.30); GFR ESTIMATED > 60; GLUCOSE 131 MG/DL (70-105); MAGNESIUM 2.7 MG/DL (1.8-2.4); POTASSIUM 3.9 MMOL/L (3.6-5.0); SODIUM 141 MMOL/L (135-145)
[2018-06-30] MEDS: RT-ADVAIR HFA 115/21 MCG PER PUFF IH SCH ×2 (06:38→18:59)
[2018-06-30] MEDS: RT-ALBUTEROL/IPRATROPIUM 3 ML (DUONEB) VIAL INH SCH ×4 (06:38→18:59)
[2018-06-30 08:00] VITALS: BP 106/69
[2018-06-30] MEDS: ASPIRIN 81 MG CHEW (CHILDREN'S ASA) PO SCH (08:16)
[2018-06-30] MEDS: ENOXAPARIN 40 MG/0.4 ML (LOVENOX) SYR SC SCH ×2 (08:16→21:24)
[2018-06-30] MEDS: predniSONE 10 MG TAB PO SCH (08:16)
[2018-06-30] MEDS: LORATADINE (CLARITIN) 10 MG TAB PO SCH (08:16)
--- NOTE | 2018-06-30 12:16 | Progress Note-Hospitalist ---
Subjective HPI/CC On Admission Date Seen by Provider: June 30, 2018 Time Seen by Provider: 12:14 The patient is a 52-year-old white male who was seen in the [facility] emergency room last night and transferred here for further treatment and evaluation. He presented there with shortness of breath. He was known to have a past history of sleep apnea pneumonia and schizophrenia. His family states that several years ago they were told at the [place] that he had had a previous stroke. They did not have any idea when that might have happened although his schizophrenia was poorly controlled and it would have been easy to miss Subjective/Events-last exam Patient sleeping soundly in no acute distress. Objective Exam Vital Signs Vital Signs Date Time Temp Pulse Resp B/P (MAP) Pulse Ox O2 Delivery O2 Flow Rate FiO2 06/30/18 11:06 93 Nasal Cannula 3.00 06/30/18 08:00 98.0 65 20 106/69 (81) 06/28/18 23:01 35 Capillary Refill : Less Than 3 SecondsLess Than 3 Seconds General Appearance: No Apparent Distress, Obese HEENT: Moist Mucous Membranes Neck: Non Tender, Supple Respiratory: No Accessory Muscle Use, No Respiratory Distress, Decreased Breath Sounds Cardiovascular: Regular Rate, Rhythm, No Edema, Normal Peripheral Pulses Gastrointestinal: Non Tender, Soft Extremity: Normal Capillary Refill, Normal Inspection Neurologic/Psychiatric: Alert, Oriented x3, Other (patient is awake and conversant, he appears in no visible discomfort in no respiratory distress, he does know the city but he does not know the year) Skin: Warm/Dry Lymphatic: No Adenopathy Results/Procedures Lab Laboratory Tests 06/30/18 04:59 Patient resulted labs reviewed. Assessment/Plan Assessment and Plan Assess & Plan/Chief Complaint A/P 1. Acute on chronic hypercapnic respiratory failure secondary to obesity hypoventilation syndrome and likely severe sleep apnea management per Dr. Gtz patient is been switched to oral prednisone currently there is no evidence for wheezing. Poor social circumstances with underlying mental impairment due to schizophrenia apparently waiting on venting mask defer to Dr. Gtz for discharge likely in the near future. 2. Schizophrenia the patient appears to be doing well off medication as he is on Seroquel and Haldol at bedtime that are significantly sedating we'll continue to hold. 3. History of hyperlipidemia we'll resume atorvastatin. 4. Questionable stroke in the past will resume baby aspirin daily. Clinical Quality Measures DVT/VTE Risk/Contraindication: Risk Factor Score Per Nursin RFS Level Per Nursing on Admit: 4+=Very High EMILY OSBORN MD June 30, 2018 12:16
[2018-06-30 15:43] VITALS: BP 115/77
[2018-06-30] MEDS: ATORVASTATIN 40 MG (LIPITOR) TABLET PO SCH (21:24)
[2018-06-30] MEDS: MONTELUKAST 10 MG (SINGULAIR) TAB PO SCH (21:24)
[2018-07-01 00:20] VITALS: BP 111/71
[2018-07-01 05:28] LABS: BUN/CREATININE RATIO 39; CALCIUM 8.5 MG/DL (8.5-10.1); CARBON DIOXIDE 29 MMOL/L (21-32); CHLORIDE 101 MMOL/L (98-107); CREATININE SERUM 0.75 MG/DL (0.60-1.30); GFR ESTIMATED > 60; GLUCOSE 99 MG/DL (70-105); MAGNESIUM 2.7 MG/DL (1.8-2.4); SODIUM 141 MMOL/L (135-145)
[2018-07-01] MEDS: RT-ALBUTEROL/IPRATROPIUM 3 ML (DUONEB) VIAL INH SCH ×3 (06:24→20:21)
[2018-07-01] MEDS: RT-ADVAIR HFA 115/21 MCG PER PUFF IH SCH ×2 (06:24→20:21)
[2018-07-01 07:11] LABS: BASOPHILS % (AUTO) 0 % (0-10); EOSINOPHILS # (AUTO) 0.1 10^3/uL (0.0-0.3); EOSINOPHILS % (AUTO) 1 % (0-10); HEMATOCRIT 51 % (40-54); HEMOGLOBIN 15.8 G/DL (13.3-17.7); LYMPHOCYTES # (AUTO) 1.1 X 10^3 (1.0-4.0); LYMPHOCYTES % (AUTO) 9 % (12-44); MEAN CORPUSCULAR HEMOGLOBIN 30 PG (25-34); MEAN CORPUSCULAR HGB CONC 31 G/DL (32-36); MEAN CORPUSCULAR VOLUME 97 FL (80-99); MONOCYTES # (AUTO) 1.2 X 10^3 (0.0-1.0); MONOCYTES % (AUTO) 10 % (0-12); NEUTROPHILS % (AUTO) 80 % (42-75); PLATELET COUNT 188 10^3/uL (130-400); RED CELL DISTRIBUTION WIDTH 16.7 % (10.0-14.5); WHITE BLOOD COUNT 12.4 10^3/uL (4.3-11.0)
[2018-07-01 07:53] VITALS: BP 101/65
[2018-07-01] MEDS: ASPIRIN 81 MG CHEW (CHILDREN'S ASA) PO SCH (08:29)
[2018-07-01] MEDS: predniSONE 10 MG TAB PO SCH (08:29)
[2018-07-01] MEDS: ENOXAPARIN 40 MG/0.4 ML (LOVENOX) SYR SC SCH ×2 (08:29→21:16)
[2018-07-01] MEDS: LORATADINE (CLARITIN) 10 MG TAB PO SCH (08:30)
--- NOTE | 2018-07-01 08:32 | Pulmonary Progress Note ---
Subjective Date Seen by a Provider: June 30, 2018 (Late note for 06/30 today is 07/01) Time Seen by a Provider: 08:30 Subjective/Events-last exam Pt states he is feeling better. No complications noted. Sepsis Event Evaluation Height, Weight, BMI Height: 5'10.00" Weight: 290lbs. 8.0oz. 131.158257nr; 41.7 BMI Method:Stated Exam Exam Vital Signs Date Time Temp Pulse Resp B/P (MAP) Pulse Ox O2 Delivery O2 Flow Rate FiO2 07/01/18 07:53 97.6 65 20 101/65 (77) 95 Nasal Cannula 3.00 07/01/18 06:24 95 Nasal Cannula 3.00 07/01/18 02:10 63 14 95 35.00 07/01/18 00:20 97.2 60 20 111/71 (84) 98 Nasal Cannula 4.00 06/30/18 23:08 66 20 96 35.00 06/30/18 20:00 95 Nasal Cannula 3.00 06/30/18 18:59 95 Nasal Cannula 3.00 06/30/18 15:43 97.2 69 20 115/77 (90) 95 Nasal Cannula 4.00 06/30/18 14:22 92 Nasal Cannula 3.00 06/30/18 11:06 93 Nasal Cannula 3.00 I & O 07/01/18 07:00 Intake Total 970 ml Output Total 650 ml Balance 320 ml Height & Weight Height: 5'10.00" Weight: 290lbs. 8.0oz. 131.644781jr; 41.7 BMI Method:Stated General Appearance: No Apparent Distress, Obese HEENT: Moist Mucous Membranes Neck: Non Tender, Supple Respiratory: No Accessory Muscle Use, No Respiratory Distress, Decreased Breath Sounds Cardiovascular: Regular Rate, Rhythm, No Edema, Normal Peripheral Pulses Capillary Refill: Less Than 3 Seconds Gastrointestinal: non tender, soft Extremity: Normal Capillary Refill, Normal Inspection Neurologic/Psychiatric: Alert, Oriented x3, Other (patient is awake and conversant, he appears in no visible discomfort in no respiratory distress, he does know the city but he does not know the year) Skin: Warm/Dry Lymphatic: No Adenopathy Results Lab Laboratory Tests 06/30/18 04:59 07/01/18 04:25 07/01/18 07:02 Assessment/Plan Assessment/Plan Acute on chronic respiratory distress -Currently on NC -Repeat CXR -ABG - C02 83 -CTA of chest is neg for PE however does shows chronic changes and atelectasis -No leukocytosis and no fever -prednisone taper -PT would benefit from home vent to mask -Pt was just in hospital 04/23. He is at risk of multiple recurrent hospitalizations and BiPAP will help decrease readmission rate. COPDAE -SVNs Q4 CHF EF 40-45% and grade 1 diastolic dysfunction PUlmonary edema with increased BNP -Lasix yesterday Mobid obesity with obesity hypoventilation syndrome. NSTEMI probably secondary to hypoxia CAMERON PALENCIA DO July 01, 2018 08:32
--- NOTE | 2018-07-01 08:35 | Pulmonary Progress Note ---
Subjective Time Seen by a Provider: 08:32 Subjective/Events-last exam Pt on NC no complications noted Sepsis Event Evaluation Height, Weight, BMI Height: 5'10.00" Weight: 290lbs. 8.0oz. 131.431050pr; 41.7 BMI Method:Stated Exam Exam Vital Signs Date Time Temp Pulse Resp B/P (MAP) Pulse Ox O2 Delivery O2 Flow Rate FiO2 07/01/18 07:53 97.6 65 20 101/65 (77) 95 Nasal Cannula 3.00 07/01/18 06:24 95 Nasal Cannula 3.00 07/01/18 02:10 63 14 95 35.00 07/01/18 00:20 97.2 60 20 111/71 (84) 98 Nasal Cannula 4.00 06/30/18 23:08 66 20 96 35.00 06/30/18 20:00 95 Nasal Cannula 3.00 06/30/18 18:59 95 Nasal Cannula 3.00 06/30/18 15:43 97.2 69 20 115/77 (90) 95 Nasal Cannula 4.00 06/30/18 14:22 92 Nasal Cannula 3.00 06/30/18 11:06 93 Nasal Cannula 3.00 I & O 07/01/18 07:00 Intake Total 970 ml Output Total 650 ml Balance 320 ml Height & Weight Height: 5'10.00" Weight: 290lbs. 8.0oz. 131.988472af; 41.7 BMI Method:Stated General Appearance: No Apparent Distress, Obese HEENT: Moist Mucous Membranes Neck: Non Tender, Supple Respiratory: No Accessory Muscle Use, No Respiratory Distress, Decreased Breath Sounds Cardiovascular: Regular Rate, Rhythm, No Edema, Normal Peripheral Pulses Capillary Refill: Less Than 3 Seconds Gastrointestinal: non tender, soft Extremity: Normal Capillary Refill, Normal Inspection Neurologic/Psychiatric: Alert, Oriented x3, Other (patient is awake and conversant, he appears in no visible discomfort in no respiratory distress, he does know the city but he does not know the year) Skin: Warm/Dry Lymphatic: No Adenopathy Results Lab Laboratory Tests 06/30/18 04:59 07/01/18 04:25 07/01/18 07:02 Assessment/Plan Assessment/Plan Acute on chronic respiratory distress -Currently on NC -ABG - C02 83 -CTA of chest is neg for PE however does shows chronic changes and atelectasis -No leukocytosis and no fever -prednisone taper -PT would benefit from home vent to mask -Pt was just in hospital 04/23. He is at risk of multiple recurrent hospitalizations and BiPAP will help decrease readmission rate. -Vent to mask has been ordered. COPDAE -SVNs Q4 CHF EF 40-45% and grade 1 diastolic dysfunction PUlmonary edema with increased BNP -Lasix yesterday Mobid obesity with obesity hypoventilation syndrome. NSTEMI probably secondary to hypoxia CAMERON PALENCIA DO July 01, 2018 08:35
--- NOTE | 2018-07-01 09:27 | NUR ---
PRIOR TO A.M. MEDICATIONS PULSE WAS 65 AND B/P WAS 101/65
--- NOTE | 2018-07-01 13:21 | Progress Note-Hospitalist ---
Subjective HPI/CC On Admission Date Seen by Provider: July 01, 2018 Time Seen by Provider: 13:19 The patient is a 52-year-old white male who was seen in the [facility] emergency room last night and transferred here for further treatment and evaluation. He presented there with shortness of breath. He was known to have a past history of sleep apnea pneumonia and schizophrenia. His family states that several years ago they were told at the [place] that he had had a previous stroke. They did not have any idea when that might have happened although his schizophrenia was poorly controlled and it would have been easy to miss Subjective/Events-last exam Patient voices usual complaints of feeling little cold but is had no chills or sweats. He's been at his baseline mental status with underlying schizophrenia denies shortness of breath cough or chest pain. Needs to be set up with Ventimask on discharge Objective Exam Vital Signs Vital Signs Date Time Temp Pulse Resp B/P (MAP) Pulse Ox O2 Delivery O2 Flow Rate FiO2 07/01/18 08:00 95 Nasal Cannula 3.00 07/01/18 07:53 97.6 65 20 101/65 (77) 06/28/18 23:01 35 Capillary Refill : Less Than 3 SecondsLess Than 3 Seconds General Appearance: No Apparent Distress, Obese HEENT: Moist Mucous Membranes Neck: Non Tender, Supple Respiratory: No Accessory Muscle Use, No Respiratory Distress, Decreased Breath Sounds Cardiovascular: Regular Rate, Rhythm, No Edema, Normal Peripheral Pulses Gastrointestinal: Non Tender, Soft Extremity: Normal Capillary Refill, Normal Inspection Neurologic/Psychiatric: Alert, Oriented x3, Other (patient is awake and conversant, he appears in no visible discomfort in no respiratory distress, he does know the city but he does not know the year) Skin: Warm/Dry Lymphatic: No Adenopathy Results/Procedures Lab Laboratory Tests 07/01/18 04:25 07/01/18 07:02 Patient resulted labs reviewed. Assessment/Plan Assessment and Plan Assess & Plan/Chief Complaint A/P 1. Acute on chronic hypercapnic respiratory failure secondary to obesity hypoventilation syndrome and likely severe sleep apnea management per Dr. Gtz patient is been switched to oral prednisone currently there is no evidence for wheezing continue taper. Poor social circumstances with underlying mental impairment due to schizophrenia apparently waiting on venting mask defer to Dr. Gtz for discharge likely in the near future. Likely discharge in the a.m. 2. Schizophrenia the patient appears to be doing well off medication as he is on Seroquel and Haldol at bedtime that are significantly sedating we'll continue to hold. Clinical Quality Measures DVT/VTE Risk/Contraindication: Risk Factor Score Per Nursin RFS Level Per Nursing on Admit: 4+=Very High EMILY OSBORN MD July 01, 2018 13:21
[2018-07-01 16:59] VITALS: BP 113/62
[2018-07-01] MEDS: ATORVASTATIN 40 MG (LIPITOR) TABLET PO SCH (21:15)
[2018-07-01] MEDS: MONTELUKAST 10 MG (SINGULAIR) TAB PO SCH (21:15)
[2018-07-01 23:33] VITALS: BP 104/59
[2018-07-02 05:36] LABS: HEMATOCRIT 50 % (40-54); HEMOGLOBIN 15.9 G/DL (13.3-17.7); MEAN CORPUSCULAR HEMOGLOBIN 31 PG (25-34); MEAN CORPUSCULAR HGB CONC 32 G/DL (32-36); MEAN CORPUSCULAR VOLUME 96 FL (80-99); PLATELET COUNT 198 10^3/uL (130-400); RED CELL DISTRIBUTION WIDTH 16.4 % (10.0-14.5); WHITE BLOOD COUNT 15.7 10^3/uL (4.3-11.0)
[2018-07-02 05:37] LABS: BASOPHILS % (AUTO) 0 % (0-10); EOSINOPHILS # (AUTO) 0.1 10^3/uL (0.0-0.3); EOSINOPHILS % (AUTO) 1 % (0-10); LYMPHOCYTES % (AUTO) 6 % (12-44); MEAN PLATELET VOLUME 10.4 FL (7.4-10.4); MONOCYTES # (AUTO) 1.7 X 10^3 (0.0-1.0); MONOCYTES % (AUTO) 11 % (0-12); NEUTROPHILS # (AUTO) 12.9 X 10^3 (1.8-7.8); NEUTROPHILS % (AUTO) 82 % (42-75)
[2018-07-02 06:05] LABS: BUN/CREATININE RATIO 32; CALCIUM 8.4 MG/DL (8.5-10.1); CARBON DIOXIDE 30 MMOL/L (21-32); CHLORIDE 100 MMOL/L (98-107); CREATININE SERUM 0.78 MG/DL (0.60-1.30); GFR ESTIMATED > 60; GLUCOSE 103 MG/DL (70-105); MAGNESIUM 2.7 MG/DL (1.8-2.4); PHOSPHORUS 2.9 MG/DL (2.3-4.7); POTASSIUM 3.5 MMOL/L (3.6-5.0); SODIUM 138 MMOL/L (135-145)
[2018-07-02 06:53] LABS: EOSINOPHILS % (MANUAL) 1 %; LYMPHOCYTES % (MANUAL) 7 %; MONOCYTES % (MANUAL) 15 %; NEUTROPHILS % (MANUAL) 77 %
[2018-07-02 07:21] VITALS: BP 103/54
[2018-07-02] MEDS: RT-ADVAIR HFA 115/21 MCG PER PUFF IH SCH (08:26)
[2018-07-02] MEDS: RT-ALBUTEROL/IPRATROPIUM 3 ML (DUONEB) VIAL INH SCH (08:26)
[2018-07-02] MEDS: predniSONE 10 MG TAB PO SCH (08:28)
[2018-07-02] MEDS: ENOXAPARIN 40 MG/0.4 ML (LOVENOX) SYR SC SCH (08:28)
[2018-07-02] MEDS: LORATADINE (CLARITIN) 10 MG TAB PO SCH (08:28)
[2018-07-02] MEDS: ASPIRIN 81 MG CHEW (CHILDREN'S ASA) PO SCH (08:28)
--- NOTE | 2018-07-02 11:03 | Progress Note-Hospitalist ---
Progress Note Progress Notes/Assess & Plan Date Seen 07/02/18 Time Seen by Provider: 11:00 Assessment & Plan The patient is more alert today than when I last saw him on Sunday. He does not seem so somnolent. Arrangements have been made for vent to mask and the equipment delivered to [facility]. He has no complaints today. Physical exam: He is alert and pleasant. Lungs are clear to auscultation. CV is regular. Abdomen is quite large. Impression: Narcolepsy/sleep apnea. 2.morbid obesity. 3.schizophrenia. Plan: Discharge. See discharge sequence for medications and routines. KAMRON SILVERIO MD July 02, 2018 11:03
--- NOTE | 2018-07-02 11:14 | Discharge Inst-Skilled Nursing ---
Discharge Inst-Skilled NF Chief Complaint The patient is a 52-year-old white male who was seen in the [facility] [place] emergency room last night and transferred here for further treatment and evaluation. He presented there with shortness of breath. He was known to have a past history of sleep apnea pneumonia and schizophrenia. His family states that several years ago they were told at the [place] that he had had a previous stroke. They did not have any idea when that might have happened although his schizophrenia was poorly controlled and it would have been easy to miss Patient Instructions Patient Problems: 1.hypercapnia. 2.hypoventilation of obesity. 3.morbid obesity 4.schizophrenia. Goal: Stable management at senior living. Consult/Follow Up/Orders Skilled NF Admit to: [facility] [place] Certification (SNF) I certify that SNF services are required to be given on an inpatient basis because of the above named patient's need for halfway care on a continuing basis for the conditions(s) for which he/she was receiving inpatient hospital services prior to his/her transfer to the SNF. [facility] Order: Physical Therapy-Evaluate & Treat, Speech Language-Evaluate & Treat Oxygen Delivery Method: High Flow N/C (vent to mask) Discharge Diet: ADA Diet Daily Activity as Tolerated: Yes New & Resume Previous Orders Randy Silverio July 02, 2018 11:11 RANDY SILVERIO MD July 02, 2018 11:14
--- NOTE | 2018-07-02 11:21 | NUR ---
CM/SS. Patient discharged to return to established placement with [facility] via their transport scheduled for 1200. Patient will be under a skilled status at this time for PT and OT, plus new trilogy mask O2. SNF understands to bring clothing, O2, and wheelchair. Updated sister Consuelo Williamson in [place]. Faxed orders to SNF, prepared packet to accompany patient. Unit RN aware.
[2018-07-02] MEDS ORDERED: PRD10T PO (11:30)
--- NOTE | 2018-07-02 11:31 | NUR ---
REPORT CALLED TO RADHA SONG WHO WILL ASSUME CARE OF THIS PATIENT WHEN HE RETURN TO [facility] LATER TODAY. (07/02/2018) PREDNISONE TAPER DOSE ALSO REVIEWED WITH THIS NURSE WHILE IN TELEPHONE REPORT. THIS RN WILL CONT TO MONITOR THIS PATIENT UNTIL DISCHARGE AROUND NOON TODAY.
[2018-07-02 11:35] VITALS: BP 103/54
--- NOTE | 2018-07-02 15:57 | Pulmonary Progress Note ---
Subjective Time Seen by a Provider: 07:00 Subjective/Events-last exam Pt has home vent to mask set up and is ready for discharge. Sepsis Event Evaluation Height, Weight, BMI Height: 5'10.00" Weight: 290lbs. 8.0oz. 131.661750li; 41.7 BMI Method:Stated Exam Exam Vital Signs Date Time Temp Pulse Resp B/P (MAP) Pulse Ox O2 Delivery O2 Flow Rate FiO2 07/02/18 11:35 72 20 103/54 95 High Flow N/C 3.00 07/02/18 11:14 High Flow N/C 07/02/18 08:31 95 Nasal Cannula 3.00 07/02/18 08:27 95 Nasal Cannula 3.00 07/02/18 08:00 95 Nasal Cannula 3.00 07/02/18 07:21 97.2 72 20 103/54 (70) 92 Nasal Cannula 3.00 07/01/18 23:33 97.3 76 22 104/59 (74) 96 Nasal Cannula 3.00 07/01/18 20:30 94 Nasal Cannula 3.00 07/01/18 20:21 93 Nasal Cannula 3.00 07/01/18 20:00 94 Nasal Cannula 3.00 07/01/18 16:59 97.4 72 20 113/62 (79) 93 Nasal Cannula 3.00 I & O 07/02/18 07:00 Intake Total 1360 ml Output Total 1000 ml Balance 360 ml Height & Weight Height: 5'10.00" Weight: 290lbs. 8.0oz. 131.847062rh; 41.7 BMI Method:Stated General Appearance: No Apparent Distress, Obese HEENT: Moist Mucous Membranes Neck: Non Tender, Supple Respiratory: No Accessory Muscle Use, No Respiratory Distress, Decreased Breath Sounds Cardiovascular: Regular Rate, Rhythm, No Edema, Normal Peripheral Pulses Capillary Refill: Less Than 3 Seconds Gastrointestinal: non tender, soft Extremity: Normal Capillary Refill, Normal Inspection Neurologic/Psychiatric: Alert, Oriented x3, Other (patient is awake and conversant, he appears in no visible discomfort in no respiratory distress, he does know the city but he does not know the year) Skin: Warm/Dry Lymphatic: No Adenopathy Results Lab Laboratory Tests 07/01/18 04:25 07/01/18 07:02 07/02/18 04:55 07/02/18 05:15 Assessment/Plan Assessment/Plan Acute on chronic respiratory distress-- much improved -Currently on NC -ABG - C02 83 -CTA of chest is neg for PE however does shows chronic changes and atelec tasis -No leukocytosis and no fever -prednisone taper -PT would benefit from home vent to mask -Pt was just in hospital 04/23. He is at risk of multiple recurrent hospitalizations and BiPAP will help decrease readmission rate. -Vent to mask has been ordered. COPDAE -SVNs Q4 CHF EF 40-45% and grade 1 diastolic dysfunction Pulmonary edema with increased BNP -Lasix yesterday Mobid obesity with obesity hypoventilation syndrome. NSTEMI probably secondary to hypoxia Pt is ok for discharge from pulmonary standpoint. CAMERON PALENCIA DO July 02, 2018 15:57
--- OUTSIDE RECORDS SUMMARY | 2018-07-02 17:05 | XMS REPORT | Continuity of Care Document ---
Author Organization Unknown Address Unknown Allergies Active Description Code Type Severity Reaction Onset Reported/Identified Relationship to Patient Clinical Status Yes No Known Drug Allergies [id number] Drug Allergy Unknown N/A 04/04/2018 Yes No Known Drug Allergies [id number] Drug Allergy Unknown N/A 06/24/2018 Medications There is no data. Problems Date Dx Coded Attending Type Code Diagnosis Diagnosed By 04/05/2018 KIRBY ALEXIS MD, Ot E66.9 OBESITY, UNSPECIFIED 04/05/2018 KIRBY ALEXIS MD, Ot E78.2 MIXED HYPERLIPIDEMIA 04/05/2018 KIRBY ALEXIS MD, Ot F20.9 SCHIZOPHRENIA, UNSPECIFIED 04/05/2018 KIRBY ALEXIS MD, Ot F32.9 MAJOR DEPRESSIVE DISORDER, SINGLE EPISOD 04/05/2018 KIRBY ALEXIS MD, Ot F41.9 ANXIETY DISORDER, UNSPECIFIED 04/05/2018 KIRBY ALEXIS MD, Ot J18.9 PNEUMONIA, UNSPECIFIED ORGANISM 04/05/2018 KIRBY ALEXIS MD, Ot K21.9 GASTRO-ESOPHAGEAL REFLUX DISEASE WITHOUT 04/05/2018 KIRBY ALEXIS MD, Ot R13.10 DYSPHAGIA, UNSPECIFIED 04/05/2018 KIRBY ALEXIS MD, Ot R79.89 OTHER SPECIFIED ABNORMAL FINDINGS OF BLO 04/05/2018 KIRBY ALEXIS MD, Ot Z68.31 BODY MASS INDEX (BMI) 31.0-31.9, ADULT 04/05/2018 KIRBY ALEXIS MD, Ot Z87.891 PERSONAL HISTORY OF NICOTINE DEPENDENCE Procedures There is no data. Results Test Result Range Complete blood count (CBC) with automated white blood cell (WBC) differential - 04/04/18 10:06 Blood leukocytes automated count (number/volume) 8.1 10*3/uL 4.3-11.0 Blood erythrocytes automated count (number/volume) 4.75 10*6/uL 4.35-5.85 Venous blood hemoglobin measurement (mass/volume) 14.5 g/dL 13.3-17.7 Blood hematocrit (volume fraction) 47 % 40-54 Automated erythrocyte mean corpuscular volume 98 [foz_us] 80-99 Automated erythrocyte mean corpuscular hemoglobin (mass per erythrocyte) 31 pg 25-34 Automated erythrocyte mean corpuscular hemoglobin concentration measurement (mass/volume) 31 g/dL 32-36 Automated erythrocyte distribution width ratio 15.6 % 10.0- 14.5 Automated blood platelet count (count/volume) 205 10*3/uL 130-400 Automated blood platelet mean volume measurement 9.9 [foz_us] 7.4-10.4 Automated blood neutrophils/100 leukocytes 72 % 42-75 Automated blood lymphocytes/100 leukocytes 16 % 12-44 Blood monocytes/100 leukocytes 8 % 0-12 Automated blood eosinophils/100 leukocytes 3 % 0-10 Automated blood basophils/100 leukocytes 1 % 0-10 Blood neutrophils automated count (number/volume) 5.7 10*3 1.8-7.8 Blood lymphocytes automated count (number/volume) 1.3 10*3 1.0-4.0 Blood monocytes automated count (number/volume) 0.7 10*3 0.0- 1.0 Automated eosinophil count 0.3 10*3/uL 0.0-0.3 Automated blood basophil count (count/volume) 0.1 10*3/uL 0.0-0.1 PT panel in platelet poor plasma by coagulation assay - 04/04/18 10:06 Prothrombin time (PT) in platelet poor plasma by coagulation assay 13.3 s 12.2-14.7 INR in platelet poor plasma or blood by coagulation assay 1.0 0.8-1.4 Activated partial thromboplastin time (aPTT) in platelet poor plasma bycoagulation assay - 04/04/18 10:06 Activated partial thromboplastin time (aPTT) in platelet poor plasma bycoagulation assay 32 s 24-35 Serum or plasma lithium measurement (moles/volume) - 04/04/18 10:06 BNP level 309.8 pg/mL <100.0 Serum or plasma troponin i.cardiac measurement (mass/volume) - 04/04/18 16:14 Serum or plasma troponin i.cardiac measurement (mass/volume) < ng/mL <0.028 Complete blood count (CBC) with automated white blood cell (WBC) differential - 04/05/18 05:45 Blood leukocytes automated count (number/volume) 8.1 10*3/uL 4.3-11.0 Blood erythrocytes automated count (number/volume) 4.96 10*6/uL 4.35-5.85 Venous blood hemoglobin measurement (mass/volume) 14.7 g/dL 13.3-17.7 Blood hematocrit (volume fraction) 49 % 40-54 Automated erythrocyte mean corpuscular volume 98 [foz_us] 80-99 Automated erythrocyte mean corpuscular hemoglobin (mass per erythrocyte) 30 pg 25-34 Automated erythrocyte mean corpuscular hemoglobin concentration measurement (mass/volume) 30 g/dL 32-36 Automated erythrocyte distribution width ratio 16.0 % 10.0- 14.5 Automated blood platelet count (count/volume) 179 10*3/uL 130-400 Automated blood platelet mean volume measurement 9.9 [foz_us] 7.4-10.4 Automated blood neutrophils/100 leukocytes 73 % 42-75 Automated blood lymphocytes/100 leukocytes 14 % 12-44 Blood monocytes/100 leukocytes 10 % 0-12 Automated blood eosinophils/100 leukocytes 3 % 0-10 Automated blood basophils/100 leukocytes 1 % 0-10 Blood neutrophils automated count (number/volume) 5.9 10*3 1.8-7.8 Blood lymphocytes automated count (number/volume) 1.1 10*3 1.0-4.0 Blood monocytes automated count (number/volume) 0.8 10*3 0.0- 1.0 Automated eosinophil count 0.2 10*3/uL 0.0-0.3 Automated blood basophil count (count/volume) 0.1 10*3/uL 0.0-0.1 Whole blood basic metabolic panel - 04/05/18 05:45 Serum or plasma sodium measurement (moles/volume) 144 mmol/L 135-145 Serum or plasma potassium measurement (moles/volume) 4.2 mmol/L 3.6-5.0 Serum or plasma chloride measurement (moles/volume) 99 mmol/L 98-107 Carbon dioxide 33 mmol/L 21-32 Serum or plasma anion gap determination (moles/volume) 12 mmol/L 5-14 Serum or plasma urea nitrogen measurement (mass/volume) 19 mg/dL 7-18 Serum or plasma creatinine measurement (mass/volume) 0.95 mg/dL 0.60-1.30 Serum or plasma urea nitrogen/creatinine mass ratio 20 NRG Serum or plasma creatinine measurement with calculation of estimated glomerular filtration rate > NRG Serum or plasma glucose measurement (mass/volume) 97 mg/dL 70-105 Serum or plasma calcium measurement (mass/volume) 9.2 mg/dL 8.5-10.1 Lipid 1996 panel - 04/05/18 05:45 Serum or plasma triglyceride measurement (mass/volume) 175 mg/dL <150 Serum or plasma cholesterol measurement (mass/volume) 217 mg/dL < 200 Serum or plasma cholesterol in HDL measurement (mass/volume) 38 mg/dL 40-60 Cholesterol in LDL [mass/volume] in serum or plasma by direct assay 158 mg/dL 1-129 Serum or plasma cholesterol in VLDL measurement (mass/volume) 35 mg/dL 5-40 CMP - 04/30/18 15:24 GLUCOSE 93 mg/dL 65-99 UREA NITROGEN (BUN) 19 mg/dL 7-25 CREATININE 0.82 mg/dL 0.70-1.33 eGFR NON-AFR. [place] 100 mL/min/1.73m2 > OR=60 eGFR 116 mL/min/1.73m2 [...] A1c 5.9 % of total Hgb <5.7 Automated blood complete blood count (hemogram) panel - 06/24/18 22:00 Blood leukocytes automated count (number/volume) 10.6 10*3/uL 4.3-11.0 Blood erythrocytes automated count (number/volume) 4.63 10*6/uL 4.35-5.85 Venous blood hemoglobin measurement (mass/volume) 14.3 g/dL 13.3-17.7 Blood hematocrit (volume fraction) 48 % 40-54 Automated erythrocyte mean corpuscular volume 103 [foz_us] 80-99 Automated erythrocyte mean corpuscular hemoglobin (mass per erythrocyte) 31 pg 25-34 Automated erythrocyte mean corpuscular hemoglobin concentration measurement (mass/volume) 30 g/dL 32-36 Automated erythrocyte distribution width ratio 17.3 % 10.0- 14.5 Automated blood platelet count (count/volume) 140 10*3/uL 130-400 Automated blood platelet mean volume measurement 11.0 [foz_us] 7.4-10.4 PT panel in platelet poor plasma by coagulation assay - 06/24/18 22:00 Prothrombin time (PT) in platelet poor plasma by coagulation assay 13.1 s 12.2-14.7 INR in platelet poor plasma or blood by coagulation assay 1.0 0.8-1.4 Activated partial thromboplastin time (aPTT) in platelet poor plasma bycoagulation assay - 06/24/18 22:00 Activated partial thromboplastin time (aPTT) in platelet poor plasma bycoagulation assay < s 24-35 Comprehensive metabolic panel - 06/24/18 22:00 Serum or plasma sodium measurement (moles/volume) 145 mmol/L 135-145 Serum or plasma potassium measurement (moles/volume) 5.3 mmol/L 3.6-5.0 Serum or plasma chloride measurement (moles/volume) 98 mmol/L 98-107 Carbon dioxide 36 mmol/L 21-32 Serum or plasma anion gap determination (moles/volume) 11 mmol/L 5-14 Serum or plasma urea nitrogen measurement (mass/volume) 24 mg/dL 7-18 Serum or plasma creatinine measurement (mass/volume) 0.88 mg/dL 0.60-1.30 Serum or plasma urea nitrogen/creatinine mass ratio 27 NRG Serum or plasma creatinine measurement with calculation of estimated glomerular filtration rate > NRG Serum or plasma glucose measurement (mass/volume) 112 mg/dL 70-105 Serum or plasma calcium measurement (mass/volume) 8.8 mg/dL 8.5-10.1 Serum or plasma total bilirubin measurement (mass/volume) 0.8 mg/dL 0.1-1.0 Serum or plasma alkaline phosphatase measurement (enzymatic activity/volume) 94 U/L 40-136 Serum or plasma aspartate aminotransferase measurement (enzymatic activity/volume) 26 U/L 5-34 Serum or plasma alanine aminotransferase measurement (enzymatic activity/volume) 24 U/L 0-55 Serum or plasma protein measurement (mass/volume) 7.2 g/dL 6.4-8.2 Serum or plasma albumin measurement (mass/volume) 4.1 g/dL 3.2-4.5 CALCIUM CORRECTED 8.7 mg/dL 8.5-10.1 TROPONIN T - 06/24/18 22:00 TROPONIN T 57 % <=15 PROBNP FS - 06/24/18 22:00 PROBNP FS 958.4 pg/mL <75.0 Complete blood count (CBC) with automated white blood cell (WBC) differential - 06/25/18 04:30 Blood leukocytes automated count (number/volume) 11.9 10*3/uL 4.3-11.0 Blood erythrocytes automated count (number/volume) 4.88 10*6/uL 4.35-5.85 Venous blood hemoglobin measurement (mass/volume) 14.9 g/dL 13.3-17.7 Blood hematocrit (volume fraction) 50 % 40-54 Automated erythrocyte mean corpuscular volume 102 [foz_us] 80-99 Automated erythrocyte mean corpuscular hemoglobin (mass per erythrocyte) 31 pg 25-34 Automated erythrocyte mean corpuscular hemoglobin concentration measurement (mass/volume) 30 g/dL 32-36 Automated erythrocyte distribution width ratio 18.0 % 10.0- 14.5 Automated blood platelet count (count/volume) 191 10*3/uL 130-400 Automated blood platelet mean volume measurement 9.6 [foz_us] 7.4-10.4 Automated blood neutrophils/100 leukocytes 92 % 42-75 Automated blood lymphocytes/100 leukocytes 5 % 12-44 Blood monocytes/100 leukocytes 3 % 0-12 Automated blood eosinophils/100 leukocytes 0 % 0-10 Automated blood basophils/100 leukocytes 0 % 0-10 Blood neutrophils automated count (number/volume) 10.9 10*3 1.8-7.8 Blood lymphocytes automated count (number/volume) 0.6 10*3 1.0-4.0 Blood monocytes automated count (number/volume) 0.3 10*3 0.0- 1.0 Automated eosinophil count 0.0 10*3/uL 0.0-0.3 Automated blood basophil count (count/volume) 0.0 10*3/uL 0.0-0.1 Blood manual differential performed detection - 06/25/18 04:30 Blood monocytes/100 leukocytes 1 % NRG Manual blood segmented neutrophils/100 leukocytes 89 % NRG Blood band neutrophils/100 leukocytes 7 % NRG Manual blood lymphocytes/100 leukocytes 3 % NRG Blood anisocytosis detection by light microscopy SLIGHT NRG Blood macrocytes detection by light microscopy SLIGHT NRG Comprehensive metabolic panel - 06/25/18 04:30 Serum or plasma sodium measurement (moles/volume) 145 mmol/L 135-145 Serum or plasma potassium measurement (moles/volume) 4.8 mmol/L 3.6-5.0 Serum or plasma chloride measurement (moles/volume) 99 mmol/L 98-107 Carbon dioxide 33 mmol/L 21-32 Serum or plasma anion gap determination (moles/volume) 13 mmol/L 5-14 Serum or plasma urea nitrogen measurement (mass/volume) 19 mg/dL 7-18 Serum or plasma creatinine measurement (mass/volume) 0.84 mg/dL 0.60-1.30 Serum or plasma urea nitrogen/creatinine mass ratio 23 NRG Serum or plasma creatinine measurement with calculation of estimated glomerular filtration rate > NRG Serum or plasma glucose measurement (mass/volume) 172 mg/dL 70-105 Serum or plasma calcium measurement (mass/volume) 9.2 mg/dL 8.5-10.1 Serum or plasma total bilirubin measurement (mass/volume) 0.8 mg/dL 0.1-1.0 Serum or plasma alkaline phosphatase measurement (enzymatic activity/volume) 88 U/L 40-136 Serum or plasma aspartate aminotransferase measurement (enzymatic activity/volume) 16 U/L 5-34 Serum or plasma alanine aminotransferase measurement (enzymatic activity/volume) 25 U/L 0-55 Serum or plasma protein measurement (mass/volume) 8.0 g/dL 6.4-8.2 Serum or plasma albumin measurement (mass/volume) 4.2 g/dL 3.2-4.5 CALCIUM CORRECTED 9.0 mg/dL 8.5-10.1 Serum or plasma troponin i.cardiac measurement (mass/volume) - 06/25/18 04:30 Serum or plasma troponin i.cardiac measurement (mass/volume) 0.055 ng/mL <0.028 Serum or plasma troponin i.cardiac measurement (mass/volume) - 06/25/18 07:30 Serum or plasma troponin i.cardiac measurement (mass/volume) 0.041 ng/mL <0.028 Serum or plasma troponin i.cardiac measurement (mass/volume) - 06/25/18 09:50 Serum or plasma troponin i.cardiac measurement (mass/volume) 0.048 ng/mL <0.028 Serum or plasma troponin i.cardiac measurement (mass/volume) - 06/25/18 13:37 Serum or plasma troponin i.cardiac measurement (mass/volume) 0.048 ng/mL <0.028 Arterial blood gas measurement - 06/25/18 20:07 Blood pCO2 83 mm[Hg] 35-45 Blood pO2 93 mm[Hg] 79-93 Arterial blood bicarbonate measurement (moles/volume) 42 mmol/L 23-27 Arterial blood base excess by calculation 15.2 mmol/L -2.5-2.5 Arterial blood oxygen saturation measurement 96 % 94-100 * Inhaled oxygen flow rate 6L NRG Arterial blood pH measurement with patient temperature correction 7.32 7.37-7.43 Arterial blood carbon dioxide, total measurement (moles/volume) 44.4 mmol/L 21.0-31.0 Body site LEFT RADIAL NRG Assessment of wrist artery patency prior to arterial puncture YES-POS NRG Setting of ventilation mode NO NRG Measurement of body temperature 98.1 NRG Complete blood count (CBC) with automated white blood cell (WBC) differential - 06/26/18 04:56 Blood leukocytes automated count (number/volume) 10.3 10*3/uL 4.3-11.0 Blood erythrocytes automated count (number/volume) 4.83 10*6/uL 4.35-5.85 Venous blood hemoglobin measurement (mass/volume) 15.1 g/dL 13.3-17.7 Blood hematocrit (volume fraction) 49 % 40-54 Automated erythrocyte mean corpuscular volume 100 [foz_us] 80-99 Automated erythrocyte mean corpuscular hemoglobin (mass per erythrocyte) 31 pg 25-34 Automated erythrocyte mean corpuscular hemoglobin concentration measurement (mass/volume) 31 g/dL 32-36 Automated erythrocyte distribution width ratio 16.9 % 10.0- 14.5 Automated blood platelet count (count/volume) 216 10*3/uL 130-400 Automated blood platelet mean volume measurement 10.1 [foz_us] 7.4-10.4 Automated blood neutrophils/100 leukocytes 92 % 42-75 Automated blood lymphocytes/100 leukocytes 5 % 12-44 Blood monocytes/100 leukocytes 4 % 0-12 Automated blood eosinophils/100 leukocytes 0 % 0-10 Automated blood basophils/100 leukocytes 0 % 0-10 Blood neutrophils automated count (number/volume) 9.5 10*3 1.8-7.8 Blood lymphocytes automated count (number/volume) 0.5 10*3 1.0-4.0 Blood monocytes automated count (number/volume) 0.4 10*3 0.0- 1.0 Automated eosinophil count 0.0 10*3/uL 0.0-0.3 Automated blood basophil count (count/volume) 0.0 10*3/uL 0.0-0.1 Whole blood basic metabolic panel - 06/26/18 04:56 Serum or plasma sodium measurement (moles/volume) 143 mmol/L 135-145 Serum or plasma potassium measurement (moles/volume) 4.7 mmol/L 3.6-5.0 Serum or plasma chloride measurement (moles/volume) 97 mmol/L 98-107 Carbon dioxide 35 mmol/L 21-32 Serum or plasma anion gap determination (moles/volume) 11 mmol/L 5-14 Serum or plasma urea nitrogen measurement (mass/volume) 21 mg/dL 7-18 Serum or plasma creatinine measurement (mass/volume) 0.79 mg/dL 0.60-1.30 Serum or plasma urea nitrogen/creatinine mass ratio 27 NRG Serum or plasma creatinine measurement with calculation of estimated glomerular filtration rate > NRG Serum or plasma glucose measurement (mass/volume) 140 mg/dL 70-105 Serum or plasma calcium measurement (mass/volume) 9.5 mg/dL 8.5-10.1 Magnesium - 06/26/18 04:56 Magnesium 2.5 mg/dL 1.8-2.4 Serum or plasma lithium measurement (moles/volume) - 06/26/18 04:56 BNP level 161.4 pg/mL <100.0 Serum or plasma phosphate measurement (mass/volume) - 06/26/18 04:56 Serum or plasma phosphate measurement (mass/volume) 2.7 mg/dL 2.3-4.7 Arterial blood gas measurement - 06/26/18 10:10 Blood pCO2 52 mm[Hg] 35-45 Blood pO2 100 mm[Hg] 79-93 Arterial blood bicarbonate measurement (moles/volume) 39 mmol/L 23-27 Arterial blood base excess by calculation 14.6 mmol/L -2.5-2.5 Arterial blood oxygen saturation measurement 98 % 94-100 * Inhaled oxygen flow rate BIPAP 45% NRG Arterial blood pH measurement with patient temperature correction 7.49 7.37-7.43 Arterial blood carbon dioxide, total measurement (moles/volume) 40.9 mmol/L 21.0-31.0 Body site LEFT RADIAL NRG Assessment of wrist artery patency prior to arterial puncture POSITIVE NRG Setting of ventilation mode NO NRG Measurement of body temperature 96.9 NRG Complete blood count (CBC) with automated white blood cell (WBC) differential - 06/27/18 05:10 Blood leukocytes automated count (number/volume) 12.0 10*3/uL 4.3-11.0 Blood erythrocytes automated count (number/volume) 5.14 10*6/uL 4.35-5.85 Venous blood hemoglobin measurement (mass/volume) 15.8 g/dL 13.3-17.7 Blood hematocrit (volume fraction) 50 % 40-54 Automated erythrocyte mean corpuscular volume 98 [foz_us] 80-99 Automated erythrocyte mean corpuscular hemoglobin (mass per erythrocyte) 31 pg 25-34 Automated erythrocyte mean corpuscular hemoglobin concentration measurement (mass/volume) 31 g/dL 32-36 Automated erythrocyte distribution width ratio 17.0 % 10.0- 14.5 Automated blood platelet count (count/volume) 247 10*3/uL 130-400 Automated blood platelet mean volume measurement 10.2 [foz_us] 7.4-10.4 Automated blood neutrophils/100 leukocytes 90 % 42-75 Automated blood lymphocytes/100 leukocytes 5 % 12-44 Blood monocytes/100 leukocytes 5 % 0-12 Automated blood eosinophils/100 leukocytes 0 % 0-10 Automated blood basophils/100 leukocytes 0 % 0-10 Blood neutrophils automated count (number/volume) 10.7 10*3 1.8-7.8 Blood lymphocytes automated count (number/volume) 0.6 10*3 1.0-4.0 Blood monocytes automated count (number/volume) 0.7 10*3 0.0- 1.0 Automated eosinophil count 0.0 10*3/uL 0.0-0.3 Automated blood basophil count (count/volume) 0.0 10*3/uL 0.0-0.1 Whole blood basic metabolic panel - 06/27/18 05:10 Serum or plasma sodium measurement (moles/volume) 141 mmol/L 135-145 Serum or plasma potassium measurement (moles/volume) 4.5 mmol/L 3.6-5.0 Serum or plasma chloride measurement (moles/volume) 99 mmol/L 98-107 Carbon dioxide 30 mmol/L 21-32 Serum or plasma anion gap determination (moles/volume) 12 mmol/L 5-14 Serum or plasma urea nitrogen measurement (mass/volume) 25 mg/dL 7-18 Serum or plasma creatinine measurement (mass/volume) 0.81 mg/dL 0.60-1.30 Serum or plasma urea nitrogen/creatinine mass ratio 31 NRG Serum or plasma creatinine measurement with calculation of estimated glomerular filtration rate > NRG Serum or plasma glucose measurement (mass/volume) 144 mg/dL 70-105 Serum or plasma calcium measurement (mass/volume) 9.6 mg/dL 8.5-10.1 Serum or plasma phosphate measurement (mass/volume) - 06/27/18 05:10 Serum or plasma phosphate measurement (mass/volume) 2.4 mg/dL 2.3-4.7 Magnesium - 06/27/18 05:10 Magnesium 2.6 mg/dL 1.8-2.4 Complete blood count (CBC) with automated white blood cell (WBC) differential - 06/28/18 04:49 Blood leukocytes automated count (number/volume) 11.0 10*3/uL 4.3-11.0 Blood erythrocytes automated count (number/volume) 5.37 10*6/uL 4.35-5.85 Venous blood hemoglobin measurement (mass/volume) 16.4 g/dL 13.3-17.7 Blood hematocrit (volume fraction) 52 % 40-54 Automated erythrocyte mean corpuscular volume 96 [foz_us] 80-99 Automated erythrocyte mean corpuscular hemoglobin (mass per erythrocyte) 31 pg 25-34 Automated erythrocyte mean corpuscular hemoglobin concentration measurement (mass/volume) 32 g/dL 32-36 Automated erythrocyte distribution width ratio 16.9 % 10.0- 14.5 Automated blood platelet count (count/volume) 232 10*3/uL 130-400 Automated blood platelet mean volume measurement 10.0 [foz_us] 7.4-10.4 Automated blood neutrophils/100 leukocytes 91 % 42-75 Automated blood lymphocytes/100 leukocytes 4 % 12-44 Blood monocytes/100 leukocytes 6 % 0-12 Automated blood eosinophils/100 leukocytes 0 % 0-10 Automated blood basophils/100 leukocytes 0 % 0-10 Blood neutrophils automated count (number/volume) 9.9 10*3 1.8-7.8 Blood lymphocytes automated count (number/volume) 0.4 10*3 1.0-4.0 Blood monocytes automated count (number/volume) 0.6 10*3 0.0- 1.0 Automated eosinophil count 0.0 10*3/uL 0.0-0.3 Automated blood basophil count (count/volume) 0.0 10*3/uL 0.0-0.1 Whole blood basic metabolic panel - 06/28/18 04:49 Serum or plasma sodium measurement (moles/volume) 141 mmol/L 135-145 Serum or plasma potassium measurement (moles/volume) 4.2 mmol/L 3.6-5.0 Serum or plasma chloride measurement (moles/volume) 98 mmol/L 98-107 Carbon dioxide 31 mmol/L 21-32 Serum or plasma anion gap determination (moles/volume) 12 mmol/L 5-14 Serum or plasma urea nitrogen measurement (mass/volume) 32 mg/dL 7-18 Serum or plasma creatinine measurement (mass/volume) 0.93 mg/dL 0.60-1.30 Serum or plasma urea nitrogen/creatinine mass ratio 34 NRG Serum or plasma creatinine measurement with calculation of estimated glomerular filtration rate > NRG Serum or plasma glucose measurement (mass/volume) 162 mg/dL 70-105 Serum or plasma calcium measurement (mass/volume) 9.3 mg/dL 8.5-10.1 Magnesium - 06/28/18 04:49 Magnesium 3.0 mg/dL 1.8-2.4 Serum or plasma lithium measurement (moles/volume) - 06/28/18 04:49 BNP level 124.2 pg/mL <100.0 Serum or plasma phosphate measurement (mass/volume) - 06/28/18 05:00 Serum or plasma phosphate measurement (mass/volume) 3.9 mg/dL 2.3-4.7 Complete blood count (CBC) with automated white blood cell (WBC) differential - 06/29/18 04:50 Blood leukocytes automated count (number/volume) 12.2 10*3/uL 4.3-11.0 Blood erythrocytes automated count (number/volume) 5.51 10*6/uL 4.35-5.85 Venous blood hemoglobin measurement (mass/volume) 16.7 g/dL 13.3-17.7 Blood hematocrit (volume fraction) 53 % 40-54 Automated erythrocyte mean corpuscular volume 96 [foz_us] 80-99 Automated erythrocyte mean corpuscular hemoglobin (mass per erythrocyte) 30 pg 25-34 Automated erythrocyte mean corpuscular hemoglobin concentration measurement (mass/volume) 32 g/dL 32-36 Automated erythrocyte distribution width ratio 17.2 % 10.0- 14.5 Automated blood platelet count (count/volume) 232 10*3/uL 130-400 Automated blood platelet mean volume measurement 10.2 [foz_us] 7.4-10.4 Automated blood neutrophils/100 leukocytes 90 % 42-75 Automated blood lymphocytes/100 leukocytes 4 % 12-44 Blood monocytes/100 leukocytes 6 % 0-12 Automated blood eosinophils/100 leukocytes 0 % 0-10 Automated blood basophils/100 leukocytes 0 % 0-10 Blood neutrophils automated count (number/volume) 11.0 10*3 1.8-7.8 Blood lymphocytes automated count (number/volume) 0.5 10*3 1.0-4.0 Blood monocytes automated count (number/volume) 0.7 10*3 0.0- 1.0 Automated eosinophil count 0.0 10*3/uL 0.0-0.3 Automated blood basophil count (count/volume) 0.0 10*3/uL 0.0-0.1 Serum or plasma phosphate measurement (mass/volume) - 06/29/18 04:50 Serum or plasma phosphate measurement (mass/volume) 3.6 mg/dL 2.3-4.7 Whole blood basic metabolic panel - 06/29/18 04:50 Serum or plasma sodium measurement (moles/volume) 142 mmol/L 135-145 Serum or plasma potassium measurement (moles/volume) 4.5 mmol/L 3.6-5.0 Serum or plasma chloride measurement (moles/volume) 101 mmol/L 98-107 Carbon dioxide 30 mmol/L 21-32 Serum or plasma anion gap determination (moles/volume) 11 mmol/L 5-14 Serum or plasma urea nitrogen measurement (mass/volume) 33 mg/dL 7-18 Serum or plasma creatinine measurement (mass/volume) 0.86 mg/dL 0.60-1.30 Serum or plasma urea nitrogen/creatinine mass ratio 38 NRG Serum or plasma creatinine measurement with calculation of estimated glomerular filtration rate > NRG Serum or plasma glucose measurement (mass/volume) 170 mg/dL 70-105 Serum or plasma calcium measurement (mass/volume) 9.3 mg/dL 8.5-10.1 Magnesium - 06/29/18 04:50 Magnesium 3.2 mg/dL 1.8-2.4 Complete blood count (CBC) with automated white blood cell (WBC) differential - 06/30/18 04:59 Blood leukocytes automated count (number/volume) 12.8 10*3/uL 4.3-11.0 Blood erythrocytes automated count (number/volume) 5.13 10*6/uL 4.35-5.85 Venous blood hemoglobin measurement (mass/volume) 15.8 g/dL 13.3-17.7 Blood hematocrit (volume fraction) 50 % 40-54 Automated erythrocyte mean corpuscular volume 97 [foz_us] 80-99 Automated erythrocyte mean corpuscular hemoglobin (mass per erythrocyte) 31 pg 25-34 Automated erythrocyte mean corpuscular hemoglobin concentration measurement (mass/volume) 32 g/dL 32-36 Automated erythrocyte distribution width ratio 16.9 % 10.0- 14.5 Automated blood platelet count (count/volume) 205 10*3/uL 130-400 Automated blood platelet mean volume measurement 9.8 [foz_us] 7.4-10.4 Automated blood neutrophils/100 leukocytes 85 % 42-75 Automated blood lymphocytes/100 leukocytes 6 % 12-44 Blood monocytes/100 leukocytes 9 % 0-12 Automated blood eosinophils/100 leukocytes 0 % 0-10 Automated blood basophils/100 leukocytes 0 % 0-10 Blood neutrophils automated count (number/volume) 10.9 10*3 1.8-7.8 Blood lymphocytes automated count (number/volume) 0.8 10*3 1.0-4.0 Blood monocytes automated count (number/volume) 1.2 10*3 0.0- 1.0 Automated eosinophil count 0.0 10*3/uL 0.0-0.3 Automated blood basophil count (count/volume) 0.0 10*3/uL 0.0-0.1 Whole blood basic metabolic panel - 06/30/18 04:59 Serum or plasma sodium measurement (moles/volume) 141 mmol/L 135-145 Serum or plasma potassium measurement (moles/volume) 3.9 mmol/L 3.6-5.0 Serum or plasma chloride measurement (moles/volume) 101 mmol/L 98-107 Carbon dioxide 32 mmol/L 21-32 Serum or plasma anion gap determination (moles/volume) 8 mmol/L 5-14 Serum or plasma urea nitrogen measurement (mass/volume) 30 mg/dL 7-18 Serum or plasma creatinine measurement (mass/volume) 0.81 mg/dL 0.60-1.30 Serum or plasma urea nitrogen/creatinine mass ratio 37 NRG Serum or plasma creatinine measurement with calculation of estimated glomerular filtration rate > NRG Serum or plasma glucose measurement (mass/volume) 131 mg/dL 70-105 Serum or plasma calcium measurement (mass/volume) 8.8 mg/dL 8.5-10.1 Magnesium - 06/30/18 04:59 Magnesium 2.7 mg/dL 1.8-2.4 Serum or plasma phosphate measurement (mass/volume) - 06/30/18 15:24 Serum or plasma phosphate measurement (mass/volume) 2.9 mg/dL 2.3-4.7 Whole blood basic metabolic panel - 07/01/18 04:25 Serum or plasma sodium measurement (moles/volume) 141 mmol/L 135-145 Serum or plasma potassium measurement (moles/volume) 4.0 mmol/L 3.6-5.0 Serum or plasma chloride measurement (moles/volume) 101 mmol/L 98-107 Carbon dioxide 29 mmol/L 21-32 Serum or plasma anion gap determination (moles/volume) 11 mmol/L 5-14 Serum or plasma urea nitrogen measurement (mass/volume) 29 mg/dL 7-18 Serum or plasma creatinine measurement (mass/volume) 0.75 mg/dL 0.60-1.30 Serum or plasma urea nitrogen/creatinine mass ratio 39 NRG Serum or plasma creatinine measurement with calculation of estimated glomerular filtration rate > NRG Serum or plasma glucose measurement (mass/volume) 99 mg/dL 70-105 Serum or plasma calcium measurement (mass/volume) 8.5 mg/dL 8.5-10.1 Serum or plasma phosphate measurement (mass/volume) - 07/01/18 04:25 Serum or plasma phosphate measurement (mass/volume) 3.0 mg/dL 2.3-4.7 Magnesium - 07/01/18 04:25 Magnesium 2.7 mg/dL 1.8-2.4 THYROID STIMULATING HORMONE - 07/01/18 04:25 THYROID STIMULATING HORMONE 2.17 u[iU]/mL 0.35-4.94 Complete blood count (CBC) with automated white blood cell (WBC) differential - 07/01/18 07:02 Blood leukocytes automated count (number/volume) 12.4 10*3/uL 4.3-11.0 Blood erythrocytes automated count (number/volume) 5.22 10*6/uL 4.35-5.85 Venous blood hemoglobin measurement (mass/volume) 15.8 g/dL 13.3-17.7 Blood hematocrit (volume fraction) 51 % 40-54 Automated erythrocyte mean corpuscular volume 97 [foz_us] 80-99 Automated erythrocyte mean corpuscular hemoglobin (mass per erythrocyte) 30 pg 25-34 Automated erythrocyte mean corpuscular hemoglobin concentration measurement (mass/volume) 31 g/dL 32-36 Automated erythrocyte distribution width ratio 16.7 % 10.0- 14.5 Automated blood platelet count (count/volume) 188 10*3/uL 130-400 Automated blood platelet mean volume measurement 10.0 [foz_us] 7.4-10.4 Automated blood neutrophils/100 leukocytes 80 % 42-75 Automated blood lymphocytes/100 leukocytes 9 % 12-44 Blood monocytes/100 leukocytes 10 % 0-12 Automated blood eosinophils/100 leukocytes 1 % 0-10 Automated blood basophils/100 leukocytes 0 % 0-10 Blood neutrophils automated count (number/volume) 10.0 10*3 1.8-7.8 Blood lymphocytes automated count (number/volume) 1.1 10*3 1.0-4.0 Blood monocytes automated count (number/volume) 1.2 10*3 0.0- 1.0 Automated eosinophil count 0.1 10*3/uL 0.0-0.3 Automated blood basophil count (count/volume) 0.0 10*3/uL 0.0-0.1 Encounters ACCT No. Visit Date/Time Discharge Status Pt. Type Provider Facility Loc./Unit Complaint [id number] 06/20/2018 17:45:00 06/20/2018 23:59:59 [facility] Outpatient BANDAR [facility]ACN[facility] [id number] 06/20/2018 17:45:00 Document Registration [id number] 04/30/2018 17:40:00 Document Registration [id number] 06/25/2018 01:03:00 ACT Inpatient KAMRON SILVERIO MD [address] SOB [id number] 04/04/2018 12:01:00 04/05/2018 16:57:00 DIS Inpatient KIRBY ALEXIS MD [address] CHEST PAIN; PNEUMONIA [id number] 06/26/2018 11:00:00 Inpatient KAMRON SILVERIO MD [address] SOB
--- NOTE | 2018-07-04 11:27 | Physician Query Clarification ---
PQ-Further Specificity Admission/Discharge Admission Date: June 26, 2018 at 11:00 Discharge Date: July 02, 2018 at 12:55 The medical record reflects the following clinical scenario: History/Risk Factors: history listed of respiratory failure with hypercapnia, morbid obesity, here reportedly for shortness of breath.EKG, troponin and BNP. ECG shows diffuse Q waves as well as T-wave flattening in the inferior and lateral leads, however he is not having any chest pain and in fact is denying any symptoms at this time. We have noticed him snoring and dropping his oxygen saturation into the 80s when he sleeps. This resolved with supplemental oxygen. We will continue to monitor. Clinical Findings: Acute on chronic hypercapnic respiratory failure secondary to obesity hypoventilation syndrome Treatment: I did treat with bronchodilators and steroids for some degree of symptomatic relief if he does have underlying obstructive lung disease. Question: Can you further specify [NSTEMI probably secondary to hypoxia] per the clinical indicators above? Please document a response in the Progress Notes or Discharge Summary. 1. Myocardial infarction type 2 2. NSTEMI 3. Other, with explanation of the clinical findings. 4. Clinically undetermined, no explanation for the clinical findings. Please remember a lack of response to the above will prompt a phone page by CDI/Coding staff. In responding to this query, please exercise your independent professional judgment. The purpose of this communication is to more accurately reflect the complexity of your patients condition. The fact that a question is asked does not imply that any particular answer is desired or expected. Thank you for your timely response to this clarification. Requestors name: Lashaun Ramires THIS PHYSICIAN QUERY FORM IS A PERMANENT PART OF THE MEDICAL RECORD PRASANNA RAMIRES July 04, 2018 11:27
--- NOTE | 2018-08-09 11:55 | Discharge Summary-Hospitalist ---
Diagnosis/Chief Complaint Date of Admission June 26, 2018 at 11:00 Date of Discharge July 02, 2018 at 12:55 Discharge Date: July 02, 2018 Admission Diagnosis 1.morbid obesity. 2.hypercapnia Discharge Diagnosis 1.hypercapnia. 2.hypoventilation obesity. 3.morbid obesity. 4.schizophrenia. Discharge Summary Discharge Physical Exam Allergies: Coded Allergies: No Known Drug Allergies (Unverified , 04/04/18) General Appearance: No Apparent Distress Hospital Course Was the Problem List Reviewed?: Yes The patient was a 52-year-old male who presented to the [facility] emergency room on 25 June. The information was relatively scant but apparently he was experiencing shortness of breath. He was a very poor historian. His past history included sleep apnea, pneumonia, and schizophrenia. He also apparently had had an unrecognized stroke several years ago that was determined by virtue of CT scan at the [facility]. He was treated with pulmonary toilet and pressure support. He improved steadily and was deemed ready for discharge back to his prior circumstance at [facility] with [facility]. Medications are as noted in the discharge sequence. He is to follow-up with his community physician in [place]. Labs (last 24 hrs) Patient resulted labs reviewed. Discussion & Recommendations Discharge Planning: >30 minutes discharge planning Discharge Home Medications: Active Scripts Active Prednisone 10 Mg Tab 40 Mg PO DAILY 7 Days TAKE 40 MG 07/03 TAKE 30 MG 07/04-31 TAKE 20 MG 07/06-2 TAKE 10 MG 3 THEN STOP Reported Seroquel (Quetiapine Fumarate) 300 Mg Tablet 150 Mg PO HS TAKES 1/2 (300MG) TABLET Triamcinolone Acetonide 0.1% Cream (Triamcinolone Acet) 15 Gm Cr TP DAILY PRN Sertraline HCl 100 Mg Tablet 100 Mg PO DAILY Seroquel (Quetiapine Fumarate) 50 Mg Tablet 50 Mg PO DAILY Miralax (Polyethylene Glycol 3350) 17 Gm Powd.pack 17 Gm PO DAILY Miconazole 5 Gm Powder TOP Q12H PRN Metoprolol Succinate 25 Mg Tab.er.24h 25 Mg PO DAILY HOLD IF SBP IS <100 OR PULSE IS <60 Loperamide (Loperamide HCl) 2 Mg Tablet PO UD PRN NOT TO EXCEED 8 TABS IN 24 HOURS Hydrocortisone 28.35 Gm Cream..g. TP UD PRN 2.5% APPLY TO FACE Hydrocortisone 28.35 Gm Cream..g. TP Q8H PRN 1% APPLY TO FACE Haloperidol 5 Mg Tablet 5 Mg PO HS Folic Acid 0.4 Mg Tablet 0.8 Mg PO DAILY Acid Building Equipment Operator (FAMOTIDINE) (Famotidine) 20 Mg Tablet 20 Mg PO DAILY Lipitor (Atorvastatin Calcium) 40 Mg Tablet 40 Mg PO HS Lorazepam 0.5 Mg Tablet 0.5 Mg PO BID Aspirin EC (Aspirin) 81 Mg Tablet.dr 81 Mg PO DAILY Tylenol Extra Strength (Acetaminophen) 500 Mg Tablet 1,000 Mg PO Q8H PRN Instructions to patient/family Please see electronic discharge instructions given to patient. Clinical Quality Measures DVT/VTE Risk/Contraindication: Risk Factor Score Per Nursin RFS Level Per Nursing on Admit: 4+=Very High KAMRON SILVERIO MD Aug 09, 2018 11:55
== END 2018-07-02 12:55 | DRG 280 ==
LOC: ER FS 21:42 → 4TH 21:43 → UNDOADMOB 06-25 01:03 → 4TH 06-25 01:03 → MERGE 06-25 01:03 → OBSVTOIN 06-26 11:00 → INTOOBSV 06-26 11:00 → 4TH 06-26 16:01 → UNDODISIN 07-02 12:55
PROVIDERS: ADMIT Internal Medicine; ATTEND Internal Medicine
DX: I21.4 Non-ST elevation (NSTEMI) myocardial infarction (principal); J96.22 Acute and chronic respiratory failure with hypercapnia; E66.2 Morbid (severe) obesity with alveolar hypoventilation; Z68.41 Body mass index [BMI] 40.0-44.9, adult; J44.1 Chronic obstructive pulmonary disease with (acute) exacerbation; J98.11 Atelectasis; I50.30 Unspecified diastolic (congestive) heart failure; I42.8 Other cardiomyopathies; G47.419 Narcolepsy without cataplexy; F20.9 Schizophrenia, unspecified; D64.9 Anemia, unspecified; E78.5 Hyperlipidemia, unspecified; Z86.73 Personal history of transient ischemic attack (TIA), and cerebral infarction without residual deficits
CPT/HCPCS: 36415; 36600; 71045; 71275; 80048; 80053; 82805; 83735; 83880; 84100; 84443; 84484; 85007; 85025; 85027; 85610; 85730; 93005; 93041; 93306; 94640; 94660; 94760; 96374; G0378

== ENCOUNTER 2019-04-14 21:45 | Emergency (ER) | payer OTHER, MEDICARE ==
[~2019-04-14] VITALS: Ht 182.8 cm; Wt 146.6 kg
[~2019-04-14 21:45] MED LIST changes: +ASPI-983 PO; +LOPE2TAB34 PO; -METO-387 PO; +MTP25TSR PO; +PRD10T PO
[2019-04-14] MEDS ORDERED: RT-ALBUTEROL/IPRATROPIUM 3 ML (DUONEB) VIAL INH ONE (22:00)
[2019-04-14] MEDS ORDERED: CEPHALEXIN 250 MG (KEFLEX) CAP PO ONE (22:00)
--- NOTE | 2019-04-14 22:03 | ED Abdominal Pain ---
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 Symptom onset was 2 weeks ago. While at the assisted this evening, supported the patient's O2 saturation was in the mid 70s. On EMS arrival, the patient was found to be 89% on room air. No treatments given by assisted staff or EMS. Patient denies chest pain, shortness of breath. Reports occasional abdominal cramping. Patient also reports crusting of eyelids and watering of his eyes. No fevers chills or sweats. No other acute symptoms or complaints. Patient with healing scars from tracheostomy and recent PEG tube placement. Patient does not recall recent hospital stays and is a poor historian due to memory. Timing/Duration: Other (2 weeks) Severity/Quality: Mild Allergies and Home Medications Allergies Coded Allergies: No Known Drug Allergies (Unverified , 04/04/18) Home Medications Acetaminophen 500 Mg Tablet, 1,000 MG PO Q8H PRN for PAIN-MILD, (Reported) Aspirin 81 Mg Tablet.dr, 81 MG PO DAILY, (Reported) Atorvastatin Calcium 40 Mg Tablet, 40 MG PO HS, (Reported) Cephalexin 500 Mg Capsule, 500 MG PO QIDACHS Prescribed by: NELLA VENTURA on 04/14/192207 Famotidine 20 Mg Tablet, 20 MG PO DAILY, (Reported) Folic Acid 0.4 Mg Tablet, 0.8 MG PO DAILY, (Reported) Haloperidol 5 Mg Tablet, 5 MG PO HS, (Reported) Hydrocortisone 28.35 Gm Cream..g., TP Q8H PRN for RASH, (Reported) 1% APPLY TO FACE Hydrocortisone 28.35 Gm Cream..g., TP UD PRN for RASH, (Reported) 2.5% APPLY TO FACE Loperamide HCl 2 Mg Tablet, PO UD PRN for DIARRHEA, (Reported) NOT TO EXCEED 8 TABS IN 24 HOURS Lorazepam 0.5 Mg Tablet, 0.5 MG PO BID, (Reported) Metoprolol Succinate 25 Mg Tab.er.24h, 25 MG PO DAILY, (Reported) HOLD IF SBP IS <100 OR PULSE IS <60 Miconazole 5 Gm Powder, TOP Q12H PRN for GAULDING/REDNESS, (Reported) Ofloxacin 5 Ml Soln, 2 DROPS OU Q3HR Prescribed by: NELLA VENTURA on 04/14/192207 Polyethylene Glycol 3350 17 Gm Powd.pack, 17 GM PO DAILY, (Reported) Prednisone 10 Mg Tab, 40 MG PO DAILY TAKE 40 MG 07/03 TAKE 30 MG 07/04- TAKE 20 MG 07/06-2 TAKE 10 MG 07/08 THEN STOP Prescribed by: KAMRON SILVERIO on 07/02/18 1130 Quetiapine Fumarate 50 Mg Tablet, 50 MG PO DAILY, (Reported) Quetiapine Fumarate 300 Mg Tablet, 150 MG PO HS, (Reported) TAKES 1/2 (300MG) TABLET Sertraline HCl 100 Mg Tablet, 100 MG PO DAILY, (Reported) Triamcinolone Acet 15 Gm Cr, TP DAILY PRN for RASH, (Reported) Patient Home Medication List Home Medication List Reviewed: Yes Review of Systems Review of Systems Constitutional: no symptoms reported EENTM: See HPI, Nose Congestion, Throat Pain Respiratory: See HPI Cardiovascular: See HPI Gastrointestinal: See HPI Genitourinary: See HPI Musculoskeletal: see HPI Skin: see HPI Hematologic/Lymphatic: See HPI Past Kwbdaln-Stoata-Qkmmxp Hx Past Med/Social Hx: Reviewed Nursing Past Med/Soc Hx Patient Social History Recent Hopitalizations: No Immunizations Up To Date Date of Influenza Vaccine: Nov 05, 2017 Seasonal Allergies Seasonal Allergies: No Past Medical History Respiratory: Yes (wears O2 at night time) COPD Cardiac: No Neurological: No Gastrointestinal: Yes Gastroesophageal Reflux, Gall Bladder Disease Musculoskeletal: Yes (generalized muscle weakness) HEENT: Yes Dysphagia Cancer: No Psychosocial: Yes Anxiety, Schizophrenia, Depression Integumentary: Yes (dry skin throughout the year ) Blood Disorders: No Adverse Reaction/Blood Tranf: No Family Medical History Arthritis Asthma Cardiovascular disease Cataracts Colon cancer Completed stroke Congenital heart disease Coronary thrombosis Deafness or hearing loss Diabetes mellitus Hypertension Kidney disease Myocardial infarction Psychosocial problem Respiratory disorder Thyroid disease Physical Exam Vital Signs Vital Signs - First Documented 04/14/19 21:45 Temp 36.3 Pulse 87 Resp 16 B/P (MAP) 105/49 (67) Pulse Ox 95 O2 Delivery Nasal Cannula Capillary Refill : Height/Weight/BMI Height: 5'10.00" Weight: 290lbs. 8.0oz. 131.351546ai; 41.7 BMI Method:Stated General Appearance: WD/WN HEENT: pharyngeal erythema (with mucopurulent postnasal drip), other (conjunctivae injected with matting of the eyelashes.) Neck: supple Respiratory: chest non-tender, lungs clear, decreased breath sounds (diminished breath sounds secondary to body habitus.) Cardiovascular: regular rate, rhythm, other (negative Homans signs.) Gastrointestinal: non tender, soft, other (obesity compromising exam. Healing PEG tube surgical scar) Neurologic/Psychiatric: mechanic assistant II-XII nml as tested, alert Skin: normal color, warm/dry Focused Exam Sepsis Stage: Ruled Out Progress/Results/Core Measures Results/Orders My Orders Orders - NELLA VENTURA DO Chest 1 View Ap/Pa Only (04/14/19 21:54) Albuterol/Ipra Inhalation Soln (Duoneb I (04/14/19 22:00) Svn Small Volume Nebulizer (04/14/19 21:54) Cephalexin Capsule (Keflex Capsule) (04/14/19 22:00) Furosemide Tablet (Lasix Tablet) (04/14/19 22:15) Furosemide Tablet (Lasix Tablet) (04/14/19 22:09) Furosemide Tablet (Lasix Tablet) (04/14/19 22:14) Medications Given in ED Current Medications Medications Dose Ordered Sig/Kevin Route Start Time Stop Time Status Last Admin Dose Admin Albuterol/ Ipratropium 3 ml ONCE ONCE INH 04/14/19 22:00 04/14/19 22:01 DC 04/14/19 22:04 3 ML Cephalexin HCl 500 mg ONCE ONCE PO 04/14/19 22:00 04/14/19 22:01 DC 04/14/19 22:04 500 MG Furosemide 20 mg STK-MED ONCE .ROUTE 04/14/19 22:09 04/14/19 22:15 DC 04/14/19 22:22 20 MG Furosemide 20 mg STK-MED ONCE .ROUTE 04/14/19 22:14 04/14/19 22:20 DC 04/14/19 22:21 20 MG Vital Signs/I&O 04/14/19 21:45 Temp 36.3 Pulse 87 Resp 16 B/P (MAP) 105/49 (67) Pulse Ox 95 O2 Delivery Nasal Cannula Departure Communication (Admissions) Patient's oxygen saturation by EMS on ED arrival does not coincide with reported oxygen saturation at assisted. Possible patient may have had a mucous plug at clear with coughing. Lung sounds are clear, chest x-ray obtained without obvious pulmonary infiltrate and is similar to prior studies with elements of pulmonary congestion. Single dose of lasix given. . Patient does complain of throat pain with purulent postnasal drip. Antibiotics given. Patient will be discharged return to assisted on oral antibiotics and oral antibiotics for bacterial conjunctivitis. Impression Primary Impression: Bacterial conjunctivitis of both eyes Additional Impression: Post-nasal drip Disposition: HOME, SELF-CARE Condition: Stable Departure-Patient Inst. Referrals: LEEROY MCDUFFIE MD (PCP/Family) Primary Care Physician Patient Instructions: Conjunctivitis (Pinkeye), Cough, Runny Nose, and the Common Cold (DC) Add. Discharge Instructions: Please clean matting from eyelashes 3 times daily and more often as needed. Take oral antibiotics for treatment of postnasal drip and follow-up with your assisted attending in 5-7 days for reevaluation. Scripts Ofloxacin (Ocuflox) 5 Ml Soln 2 DROPS OU Q3HR, #5 ML Prov: NELLA VENTURA DO 04/14/19 Cephalexin (Keflex) 500 Mg Capsule 500 MG PO QIDACHS, #40 CAP Prov: NELLA VENTURA DO 04/14/19 NELLA VENTURA DO Apr 14, 2019 22:02
[2019-04-14] MEDS ORDERED: CEPH-507 PO (22:08)
[2019-04-14] MEDS ORDERED: OFL.3OP5 OU (22:08)
[2019-04-14] MEDS ORDERED: FUROSEMIDE 20 MG (LASIX) TAB ONE ×2 (22:09→22:14)
[2019-04-14] MEDS ORDERED: FUROSEMIDE 40 MG (LASIX) TAB PO ONE (22:15)
--- NOTE | 2019-04-14 22:17 | NUR ---
Jewels snider in [facility] - 04/14/19 at 2218 by [facility] NURSE IN ROOM WITH PT AND FAMILY.
[2019-04-14 23:17] VITALS: BP 120/60
--- NOTE | 2019-04-15 07:27 | Diagnostic Imaging Report ---
EXAMINATION: Chest radiograph, portable AP view. DATE: 04/14/2019 10:03 PM hours. INDICATION: 53-year-old male, shortness of breath. COMPARISON: June 29, 2018. FINDINGS: Given differences in technique and lung volumes, heart size and mediastinal contours are likely unchanged. There is no identified pneumothorax. There are low lung volumes. There are streaky opacities in the lung bases bilaterally with unchanged appearance. IMPRESSION: 1. Low lung volumes with streaky opacities in the lung bases which may relate to atelectasis, and/or infiltrate. Dictated by: Dictated on workstation # [id number]
--- OUTSIDE RECORDS SUMMARY | 2019-04-17 05:27 | XMS REPORT ---
Author Author Dewayne BARROS Organization [facility] Address [address] [place] [address] Care Team Providers Care Allergist Immunologist Name Role Phone CHERYL BARROS Unavailable PROBLEMS Type Condition ICD9-CM Code [id number] Code Onset Dates Condition S tatus SNOMED Code Problem Schizophrenia, unspecified F20.9 Act eleanor [id number] ALLERGIES No Information ENCOUNTERS Encounter Location Date Diagnosis [address] [address] [address] [place] [address] June, Schizophrenia, unspecified F 20.9 and Abnormal glucose level R73.09 [address] [address] [address], [place] [address] Apr, Schizophrenia, unspecified F 20.9 IMMUNIZATIONS No Known Immunizations SOCIAL HISTORY Never Assessed REASON FOR VISIT Lab (walk-in) PLAN OF CARE VITAL SIGNS MEDICATIONS Unknown Medications RESULTS No Results PROCEDURES Procedure Date Ordered Result Body Site VENIPUNCT, ROUTINE* April 30, 2018 COMPREHEN METABOLIC PANEL April 30, 2018 INSTRUCTIONS MEDICATIONS ADMINISTERED No Known Medications
--- OUTSIDE RECORDS SUMMARY | 2019-04-17 05:28 | XMS REPORT | Continuity of Care Document ---
Author Organization Unknown Address Unknown Phone Unavailable Allergies Active Description Code Type Severity Reaction Onset Reported/Identified Relationship to Patient Clinical Status Yes No Known Drug Allergies [id number] Drug Allergy Unknown N/A 04/04/2018 Yes No Known Drug Allergies [id number] Drug Allergy Unknown N/A 06/24/2018 Medications There is no data. Problems Date Dx Coded Attending Type Code Diagnosis Diagnosed By 04/05/2018 KIRBY ALEXIS MD, Ot E66. 9 OBESITY, UNSPECIFIED 04/05/2018 KIRBY ALEXIS MD, Ot E78. 2 MIXED HYPERLIPIDEMIA 04/05/2018 KIRBY ALEXIS MD, Ot F20. 9 SCHIZOPHRENIA, UNSPECIFIED 04/05/2018 KIRBY ALEXIS MD, Ot F32. 9 MAJOR DEPRESSIVE DISORDER, SINGLE EPISOD 04/05/2018 KIRBY ALEXIS MD, Ot F41. 9 ANXIETY DISORDER, UNSPECIFIED 04/05/2018 KIRBY ALEXIS MD, Ot J18. 9 PNEUMONIA, UNSPECIFIED ORGANISM 04/05/2018 KIRBY ALEXIS MD, Ot K21. 9 GASTRO-ESOPHAGEAL REFLUX DISEASE WITHOUT 04/05/2018 KIRBY ALEXIS MD Ot R13. 10 DYSPHAGIA, UNSPECIFIED 04/05/2018 KIRBY ALEXIS MD, Ot R79. 89 OTHER SPECIFIED ABNORMAL FINDINGS OF BLO 04/05/2018 KIRBY ALEXIS MD Ot Z68. 31 BODY MASS INDEX (BMI) 31.0-31.9, ADULT 04/05/2018 KIRBY ALEXIS MD, Ot Z87.891 PERSONAL HISTORY OF NICOTINE DEPENDENCE 06/25/2018 KAMRON SILVERIO MD Ot D64 .9 ANEMIA, UNSPECIFIED 06/25/2018 KAMRON SILVERIO MD Ot E66 .2 MORBID (SEVERE) OBESITY WITH ALVEOLAR HY 06/25/2018 KAMRON SILVERIO MD Ot E78 .5 HYPERLIPIDEMIA, UNSPECIFIED 06/25/2018 KAMRON SILVERIO MD Ot F20 .9 SCHIZOPHRENIA, UNSPECIFIED 06/25/2018 KAMRON SILVERIO MD Ot G47.419 NARCOLEPSY WITHOUT CATAPLEXY 06/25/2018 KAMRON SILVERIO MD Ot I21 .4 NON-ST ELEVATION (NSTEMI) MYOCARDIAL INF 06/25/2018 KAMRON SILVERIO MD Ot I50.30 UNSPECIFIED DIASTOLIC (CONGESTIVE) HEART 06/25/2018 KAMRON SILVERIO MD Ot J44 .1 CHRONIC OBSTRUCTIVE PULMONARY DISEASE W 06/25/2018 KAMRON SILVERIO MD Ot J98.11 ATELECTASIS 06/25/2018 KAMRON SILVERIO MD Ot R06.03 ACUTE RESPIRATORY DISTRESS 06/25/2018 KAMRON SILVERIO MD Ot Z68.41 BODY MASS INDEX (BMI) 40.0-44.9, ADULT 07/02/2018 KAMRON SILVERIO MD Ot D64 .9 ANEMIA, UNSPECIFIED 07/02/2018 KAMRON SILVERIO MD Ot E66 .2 MORBID (SEVERE) OBESITY WITH ALVEOLAR HY 07/02/2018 KAMRON SILVERIO MD Ot E78 .5 HYPERLIPIDEMIA, UNSPECIFIED 07/02/2018 KAMRON SILVERIO MD Ot F20 .9 SCHIZOPHRENIA, UNSPECIFIED 07/02/2018 KAMRON SILVERIO MD Ot G47.419 NARCOLEPSY WITHOUT CATAPLEXY 07/02/2018 KAMRON SILVERIO MD Ot I21 .4 NON-ST ELEVATION (NSTEMI) MYOCARDIAL INF 07/02/2018 KAMRON SILVERIO MD Ot I50.30 UNSPECIFIED DIASTOLIC (CONGESTIVE) HEART 07/02/2018 KAMRON SILVERIO MD Ot J44 .1 CHRONIC OBSTRUCTIVE PULMONARY DISEASE W 07/02/2018 KAMRON SILVERIO MD Ot J98.11 ATELECTASIS 07/02/2018 KAMRON SILVERIO MD Ot R06.03 ACUTE RESPIRATORY DISTRESS 07/02/2018 KAMRON SILVERIO MD Ot Z68.41 BODY MASS INDEX (BMI) 40.0-44.9, ADULT 07/02/2018 KAMRON SILVERIO MD Ot D64 .9 ANEMIA, UNSPECIFIED 07/02/2018 KAMRON SILVERIO MD Ot E66 .2 MORBID (SEVERE) OBESITY WITH ALVEOLAR HY 07/02/2018 KAMRON SILVERIO MD Ot E78 .5 HYPERLIPIDEMIA, UNSPECIFIED 07/02/2018 KAMRON SILVERIO MD Ot F20 .9 SCHIZOPHRENIA, UNSPECIFIED 07/02/2018 KAMRON SILVERIO MD Ot G47.419 NARCOLEPSY WITHOUT CATAPLEXY 07/02/2018 KAMRON SILVERIO MD Ot I21 .4 NON-ST ELEVATION (NSTEMI) MYOCARDIAL INF 07/02/2018 KAMRON SILVERIO MD Ot I42 .8 OTHER CARDIOMYOPATHIES 07/02/2018 KAMRON SILVERIO MD Ot I50.30 UNSPECIFIED DIASTOLIC (CONGESTIVE) HEART 07/02/2018 KAMRON SILVERIO MD Ot J44 .1 CHRONIC OBSTRUCTIVE PULMONARY DISEASE W 07/02/2018 KAMRON SILVERIO MD Ot J96.22 ACUTE AND CHRONIC RESPIRATORY FAILURE [place] 07/02/2018 KAMRON SILVERIO MD Ot J98.11 ATELECTASIS 07/02/2018 KAMRON SILVERIO MD Ot R06.03 ACUTE RESPIRATORY DISTRESS 07/02/2018 KAMRON SILVERIO MD Ot Z68.41 BODY MASS INDEX (BMI) 40.0-44.9, ADULT 07/02/2018 KAMRON SILVERIO MD Ot Z86.73 PRSNL HX OF TIA (TIA), AND CEREB INFRC W 07/02/2018 KAMRON SILVERIO MD Ot D64 .9 ANEMIA, UNSPECIFIED 07/02/2018 KAMRON SILVERIO MD Ot E66 .2 MORBID (SEVERE) OBESITY WITH ALVEOLAR HY 07/02/2018 KAMRON SILVEIRO MD Ot E78 .5 HYPERLIPIDEMIA, UNSPECIFIED 07/02/2018 KAMRON SILVERIO MD Ot F20 .9 SCHIZOPHRENIA, UNSPECIFIED 07/02/2018 KAMRON SILVERIO MD Ot G47.419 NARCOLEPSY WITHOUT CATAPLEXY 07/02/2018 KAMRON SILVERIO MD Ot I21 .4 NON-ST ELEVATION (NSTEMI) MYOCARDIAL INF 07/02/2018 KAMRON SILVERIO MD Ot I50.30 UNSPECIFIED DIASTOLIC (CONGESTIVE) HEART 07/02/2018 KAMRON SILVERIO MD Ot J44 .1 CHRONIC OBSTRUCTIVE PULMONARY DISEASE W 07/02/2018 KAMRON SILVERIO MD Ot J98.11 ATELECTASIS 07/02/2018 KAMRON SILVERIO MD Ot R06.03 ACUTE RESPIRATORY DISTRESS 07/02/2018 KERWIN SILVERIO MDNEY K Ot Z68.41 BODY MASS INDEX (BMI) 40.0-44.9, ADULT Procedures There is no data. Results Test Result Range Complete blood count (CBC) with automate d white blood cell (WBC) differential - 04/04/18 10:06 Blood leukocytes automated count (number/volume) 8.1 10*3/uL 4.3-11.0 Blood erythrocytes automated count (number/volume) 4.75 10*6/uL 4.35-5.85 Venous blood hemoglobin measurement (mass/volume) 14.5 g/dL 13.3-17.7 Blood hematocrit (volume fraction) 47 % 40-54 Automated erythrocyte mean corpuscular volume 98 [ foz_us] 80-99 Automated erythrocyte mean corpuscular h emoglobin (mass per erythrocyte) 31 pg 25-34 Automated erythrocyte mean corpuscular h emoglobin concentration measurement (mass/volume) 31 g/dL 32-36 Automated erythrocyte distribution width ratio 15. 6 % 10.0- 14.5 Automated blood platelet count [...] 10*3 1.0-4.0 Blood monocytes automated count (number/volume) 0. 7 10*3 0.0-1.0 Automated eosinophil count 0.3 10*3/uL 0 .0-0.3 Automated blood basophil count (count/volume) 0.1 10*3/uL 0.0-0.1 PT panel in platelet poor plasma by coag ulation assay - 04/04/18 10:06 Prothrombin time (PT) in platelet poor plasma by coagu lation assay 13.3 s 12.2-14.7 INR in platelet poor plasma or blood by coagulation as say 1.0 0.8-1.4 Activated partial thromboplastin time (a PTT) in platelet poor plasma bycoagulation assay - 04/04/18 10:06 Activated partial thromboplastin time (a PTT) in platelet poor plasma bycoagulation assay 32 s 24-35 Serum or plasma lithium measurement (mol es/volume) - 04/04/18 10:06 BNP level 309.8 pg/mL <100.0 Serum or plasma troponin i.cardiac measu rement (mass/volume) - 04/04/18 16:14 Serum or plasma troponin i.cardiac measurement (mass/v olume) < ng/mL <0.028 Complete blood count (CBC) with automate d white blood cell (WBC) differential - 04/05/18 05:45 Blood leukocytes automated count (number/volume) 8.1 10*3/uL 4.3-11.0 Blood erythrocytes automated count (number/volume) 4.96 10*6/uL 4.35-5.85 Venous blood hemoglobin measurement (mass/volume) 14.7 g/dL 13.3-17.7 Blood hematocrit (volume fraction) 49 % 40-54 Automated erythrocyte mean corpuscular volume 98 [ foz_us] 80-99 Automated erythrocyte mean corpuscular h emoglobin (mass per erythrocyte) 30 pg 25-34 Automated erythrocyte mean corpuscular h emoglobin concentration measurement (mass/volume) 30 g/dL 32-36 Automated erythrocyte distribution width ratio 16. 0 % 10.0- 14.5 Automated blood platelet count [...] 10*3 1.0-4.0 Blood monocytes automated count (number/volume) 0. 8 10*3 0.0-1.0 Automated eosinophil count 0.2 10*3/uL 0 .0-0.3 Automated blood basophil count (count/volume) 0.1 10*3/uL 0.0-0.1 Whole blood basic metabolic panel - 02/23 05:45 Serum or plasma sodium measurement (moles/volume) 144 mmol/L 135-145 Serum or plasma potassium measurement (moles/volume) 4.2 mmol/L 3.6-5.0 Serum or plasma chloride measurement (moles/volume) 99 mmol/L 98-107 Carbon dioxide 33 mmol/L 21-32 Serum or plasma anion gap determination (moles/volume) 12 mmol/L 5-14 Serum or plasma urea nitrogen measurement (mass/volume ) 19 mg/dL 7-18 Serum or plasma creatinine measurement (mass/volume) 0.95 mg/dL 0.60-1.30 Serum or plasma urea nitrogen/creatinine mass ratio 20 NRG Serum or plasma creatinine measurement w ith calculation of estimated glomerular filtration rate > NRG Serum or plasma glucose measurement (mass/volume) 97 mg/dL 70-105 Serum or plasma calcium measurement (mass/volume) 9.2 mg/dL 8.5-10.1 Lipid 1996 panel - 04/05/18 05:45 Serum or plasma triglyceride measurement (mass/volume) 175 mg/dL <150 Serum or plasma cholesterol measurement (mass/volume) 217 mg/dL < 200 Serum or plasma cholesterol in HDL measurement (mass/v olume) 38 mg/dL 40-60 Cholesterol in LDL [mass/volume] in serum or plasma by direct assay 158 mg/dL 1-129 Serum or plasma cholesterol in VLDL measurement (mass/ volume) 35 mg/dL 5-40 CMP - 04/30/18 15:24 GLUCOSE 93 mg/dL 65-99 UREA NITROGEN (BUN) 19 mg/dL 7-25 CREATININE 0.82 mg/dL 0.70-1.33 eGFR NON-AFR. CYMRAES 100 mL/min/1.73m2 > OR = 60 eGFR 116 mL/min/1.73m2 > OR = 60 BUN/CREATININE RATIO NOT APPLICABLE (calc) 6-22 SODIUM 142 mmol/L 135-146 POTASSIUM 4.4 mmol/L 3.5-5.3 CHLORIDE 99 mmol/L 98-110 CARBON DIOXIDE 37 mmol/L 20-32 CALCIUM 9.2 mg/dL 8.6-10.3 PROTEIN, TOTAL 7.4 g/dL 6.1-8.1 ALBUMIN 4.3 g/dL 3.6-5.1 GLOBULIN 3.1 g/dL (calc) 1.9-3.7 ALBUMIN/GLOBULIN RATIO 1.4 (calc) 1.0-2. 5 BILIRUBIN, TOTAL 0.7 mg/dL 0.2-1.2 ALKALINE PHOSPHATASE 84 U/L 40-115 AST 14 U/L 10-35 ALT 19 U/L 9-46 A1C - 06/20/18 16:11 HEMOGLOBIN A1c 5.9 % of total Hgb <5.7 Automated blood complete blood count (he mogram) panel - 06/24/18 22:00 Blood leukocytes automated count (number/volume) 10.6 10*3/uL 4.3-11.0 Blood erythrocytes automated count (number/volume) 4.63 10*6/uL 4.35-5.85 Venous blood hemoglobin measurement (mass/volume) 14.3 g/dL 13.3-17.7 Blood hematocrit (volume fraction) 48 % 40-54 Automated erythrocyte mean corpuscular volume 103 [foz_us] 80-99 Automated erythrocyte mean corpuscular h emoglobin (mass per erythrocyte) 31 pg 25-34 Automated erythrocyte mean corpuscular h emoglobin concentration measurement (mass/volume) 30 g/dL 32-36 Automated erythrocyte distribution width ratio 17. 3 % 10.0- 14.5 Automated blood platelet count (count/volume) 140 10*3/uL 130-400 Automated blood platelet mean volume measurement 11.0 [foz_us] 7.4-10.4 PT panel in platelet poor plasma by coag ulation assay - 06/24/18 22:00 Prothrombin time (PT) in platelet poor plasma by coagu lation assay 13.1 s 12.2-14.7 INR in platelet poor plasma or blood by coagulation as say 1.0 0.8-1.4 Activated partial thromboplastin time (a PTT) in platelet poor plasma bycoagulation assay - 06/24/18 22:00 Activated partial thromboplastin time (a PTT) in platelet poor plasma bycoagulation assay < s 24-35 Comprehensive metabolic panel - 06/24/18 22:00 Serum or plasma sodium measurement (moles/volume) 145 mmol/L 135-145 Serum or plasma potassium measurement (moles/volume) 5.3 mmol/L 3.6-5.0 Serum or plasma chloride measurement (moles/volume) 98 mmol/L 98-107 Carbon dioxide 36 mmol/L 21-32 Serum or plasma anion gap determination (moles/volume) 11 mmol/L 5-14 Serum or plasma urea nitrogen measurement (mass/volume ) 24 mg/dL 7-18 Serum or plasma creatinine measurement (mass/volume) 0.88 mg/dL 0.60-1.30 Serum or plasma urea nitrogen/creatinine mass ratio 27 NRG Serum or plasma creatinine measurement w ith calculation of estimated glomerular filtration rate > NRG Serum or plasma glucose measurement (mass/volume) 112 mg/dL 70-105 Serum or plasma calcium measurement (mass/volume) 8.8 mg/dL 8.5-10.1 Serum or plasma total bilirubin measurement (mass/volu me) 0.8 mg/dL 0.1-1.0 Serum or plasma alkaline phosphatase heriberto surement (enzymatic activity/volume) 94 U/L 40-136 Serum or plasma aspartate aminotransfera se measurement (enzymatic activity/volume) 26 U/L 5-34 Serum [...] pg/mL <75.0 Complete blood count (CBC) with automate d white blood cell (WBC) differential - 06/25/18 04:30 Blood leukocytes automated count (number/volume) 11.9 10*3/uL 4.3-11.0 Blood erythrocytes automated count (number/volume) 4.88 10*6/uL 4.35-5.85 Venous blood hemoglobin measurement (mass/volume) 14.9 g/dL 13.3-17.7 Blood hematocrit (volume fraction) 50 % 40-54 Automated erythrocyte mean corpuscular volume 102 [foz_us] 80-99 Automated erythrocyte mean corpuscular h emoglobin (mass per erythrocyte) 31 pg 25-34 Automated erythrocyte mean corpuscular h emoglobin concentration measurement (mass/volume) 30 g/dL 32-36 Automated erythrocyte distribution width ratio 18. 0 % 10.0- 14.5 Automated blood platelet count [...] 10*3 1.0-4.0 Blood monocytes automated count (number/volume) 0. 3 10*3 0.0-1.0 Automated eosinophil count 0.0 10*3/uL 0 .0-0.3 Automated blood basophil count (count/volume) 0.0 10*3/uL 0.0-0.1 Blood manual differential performed dete ction - 06/25/18 04:30 Blood monocytes/100 leukocytes 1 % NRG Manual blood segmented neutrophils/100 leukocytes 89 % NRG Blood band neutrophils/100 leukocytes 7 % NRG Manual blood lymphocytes/100 leukocytes 3 % NRG Blood anisocytosis detection by light microscopy S LIGHT NRG Blood macrocytes detection by light microscopy SLI T NRG Comprehensive metabolic panel - 06/25/18 04:30 Serum or plasma sodium measurement (moles/volume) 145 mmol/L 135-145 Serum or plasma potassium measurement (moles/volume) 4.8 mmol/L 3.6-5.0 Serum or plasma chloride measurement (moles/volume) 99 mmol/L 98-107 Carbon dioxide 33 mmol/L 21-32 Serum or plasma anion gap determination (moles/volume) 13 mmol/L 5-14 Serum or plasma urea nitrogen measurement (mass/volume ) 19 mg/dL 7-18 Serum or plasma creatinine measurement (mass/volume) 0.84 mg/dL 0.60-1.30 Serum or plasma urea nitrogen/creatinine mass ratio 23 NRG Serum or plasma creatinine measurement w ith calculation of estimated glomerular filtration rate > NRG Serum or plasma glucose measurement (mass/volume) 172 mg/dL 70-105 Serum or plasma calcium measurement (mass/volume) 9.2 mg/dL 8.5-10.1 Serum or plasma total bilirubin measurement (mass/volu me) 0.8 mg/dL 0.1-1.0 Serum or plasma alkaline phosphatase heriberto surement (enzymatic activity/volume) 88 U/L 40-136 Serum or plasma aspartate aminotransfera se measurement (enzymatic activity/volume) 16 U/L 5-34 Serum or plasma alanine aminotransferase measurement (enzymatic activity/volume) 25 U/L 0-55 Serum or plasma protein measurement (mass/volume) 8.0 g/dL 6.4-8.2 Serum or plasma albumin measurement (mass/volume) 4.2 g/dL 3.2-4.5 CALCIUM CORRECTED 9.0 mg/dL 8.5-10.1 Serum or plasma troponin i.cardiac measu rement (mass/volume) - 06/25/18 04:30 Serum or plasma troponin i.cardiac measurement (mass/v olume) 0.055 ng/mL <0.028 Serum or plasma troponin i.cardiac measu rement (mass/volume) - 06/25/18 07:30 Serum or plasma troponin i.cardiac measurement (mass/v olume) 0.041 ng/mL <0.028 Serum or plasma troponin i.cardiac measu rement (mass/volume) - 06/25/18 09:50 Serum or plasma troponin i.cardiac measurement (mass/v olume) 0.048 ng/mL <0.028 Serum or plasma troponin i.cardiac measu rement (mass/volume) - 06/25/18 13:37 Serum or plasma troponin i.cardiac measurement (mass/v olume) 0.048 ng/mL <0.028 Arterial blood gas measurement - 9 20:07 Blood pCO2 83 mm[Hg] 35-45 Blood pO2 93 mm[Hg] 79-93 Arterial blood bicarbonate measurement (moles/volume) 42 mmol/L 23-27 Arterial blood base excess by calculation 15.2 mmo l/L -2.5-2.5 Arterial blood oxygen saturation measurement 96 % 94-100 * Inhaled oxygen flow rate 6L NRG Arterial blood pH measurement with patient temperature correction 7.32 7.37-7.43 Arterial blood carbon dioxide, total measurement (mole s/volume) 44.4 mmol/L 21.0-31.0 Body site LEFT RADIAL NRG Assessment of wrist artery patency prior to arterial p uncture YES-POS NRG Setting of ventilation mode NO NR G Measurement of body temperature 98.1 NRG Complete blood count (CBC) with automate d white blood cell (WBC) differential - 06/26/18 04:56 Blood leukocytes automated count (number/volume) 10.3 10*3/uL 4.3-11.0 Blood erythrocytes automated count (number/volume) 4.83 10*6/uL 4.35-5.85 Venous blood hemoglobin measurement (mass/volume) 15.1 g/dL 13.3-17.7 Blood hematocrit (volume fraction) 49 % 40-54 Automated erythrocyte mean corpuscular volume 100 [foz_us] 80-99 Automated erythrocyte mean corpuscular h emoglobin (mass per erythrocyte) 31 pg 25-34 Automated erythrocyte mean corpuscular h emoglobin concentration measurement (mass/volume) 31 g/dL 32-36 Automated erythrocyte distribution width ratio 16. 9 % 10.0- 14.5 Automated blood platelet count [...] 10*3 1.0-4.0 Blood monocytes automated count (number/volume) 0. 4 10*3 0.0-1.0 Automated eosinophil count 0.0 10*3/uL 0 .0-0.3 Automated blood basophil count (count/volume) 0.0 10*3/uL 0.0-0.1 Whole blood basic metabolic panel - 06/06 03/26 04:56 Serum or plasma sodium measurement (moles/volume) 143 mmol/L 135-145 Serum or plasma potassium measurement (moles/volume) 4.7 mmol/L 3.6-5.0 Serum or plasma chloride measurement (moles/volume) 97 mmol/L 98-107 Carbon dioxide 35 mmol/L 21-32 Serum or plasma anion gap determination (moles/volume) 11 mmol/L 5-14 Serum or plasma urea nitrogen measurement (mass/volume ) 21 mg/dL 7-18 Serum or plasma creatinine measurement (mass/volume) 0.79 mg/dL 0.60-1.30 Serum or plasma urea nitrogen/creatinine mass ratio 27 NRG Serum or plasma creatinine measurement w ith calculation of estimated glomerular filtration rate > NRG Serum or plasma glucose measurement (mass/volume) 140 mg/dL 70-105 Serum or plasma calcium measurement (mass/volume) 9.5 mg/dL 8.5-10.1 Magnesium - 06/26/18 04:56 Magnesium 2.5 mg/dL 1.8-2.4 Serum or plasma lithium measurement (mol es/volume) - 06/26/18 04:56 BNP level 161.4 pg/mL <100.0 Serum or plasma phosphate measurement (m ass/volume) - 06/26/18 04:56 Serum or plasma phosphate measurement (mass/volume) 2.7 mg/dL 2.3-4.7 Arterial blood gas measurement - 9 10:10 Blood pCO2 52 mm[Hg] 35-45 Blood pO2 100 mm[Hg] 79-93 Arterial blood bicarbonate measurement (moles/volume) 39 mmol/L 23-27 Arterial blood base excess by calculation 14.6 mmo l/L -2.5-2.5 Arterial blood oxygen saturation measurement 98 % 94-100 * Inhaled oxygen flow rate BIPAP 45% NR G Arterial blood pH measurement with patient temperature correction 7.49 7.37-7.43 Arterial blood carbon dioxide, total measurement (mole s/volume) 40.9 mmol/L 21.0-31.0 Body site LEFT RADIAL NRG Assessment of wrist artery patency prior to arterial p uncture POSITIVE NRG Setting of ventilation mode NO NR G Measurement of body temperature 96.9 NRG Complete blood count (CBC) with automate d white blood cell (WBC) differential - 06/27/18 05:10 Blood leukocytes automated count (number/volume) 12.0 10*3/uL 4.3-11.0 Blood erythrocytes automated count (number/volume) 5.14 10*6/uL 4.35-5.85 Venous blood hemoglobin measurement (mass/volume) 15.8 g/dL 13.3-17.7 Blood hematocrit (volume fraction) 50 % 40-54 Automated erythrocyte mean corpuscular volume 98 [ foz_us] 80-99 Automated erythrocyte mean corpuscular h emoglobin (mass per erythrocyte) 31 pg 25-34 Automated erythrocyte mean corpuscular h emoglobin concentration measurement (mass/volume) 31 g/dL 32-36 Automated erythrocyte distribution width ratio 17. 0 % 10.0- 14.5 Automated blood platelet count [...] 10*3 1.0-4.0 Blood monocytes automated count (number/volume) 0. 7 10*3 0.0-1.0 Automated eosinophil count 0.0 10*3/uL 0 .0-0.3 Automated blood basophil count (count/volume) 0.0 10*3/uL 0.0-0.1 Whole blood basic metabolic panel - 06/06 04/23 05:10 Serum or plasma sodium measurement (moles/volume) 141 mmol/L 135-145 Serum or plasma potassium measurement (moles/volume) 4.5 mmol/L 3.6-5.0 Serum or plasma chloride measurement (moles/volume) 99 mmol/L 98-107 Carbon dioxide 30 mmol/L 21-32 Serum or plasma anion gap determination (moles/volume) 12 mmol/L 5-14 Serum or plasma urea nitrogen measurement (mass/volume ) 25 mg/dL 7-18 Serum or plasma creatinine measurement (mass/volume) 0.81 mg/dL 0.60-1.30 Serum or plasma urea nitrogen/creatinine mass ratio 31 NRG Serum or plasma creatinine measurement w ith calculation of estimated glomerular filtration rate > NRG Serum or plasma glucose measurement (mass/volume) 144 mg/dL 70-105 Serum or plasma calcium measurement (mass/volume) 9.6 mg/dL 8.5-10.1 Serum or plasma phosphate measurement (m ass/volume) - 06/27/18 05:10 Serum or plasma phosphate measurement (mass/volume) 2.4 mg/dL 2.3-4.7 Magnesium - 06/27/18 05:10 Magnesium 2.6 mg/dL 1.8-2.4 Complete blood count (CBC) with automate d white blood cell (WBC) differential - 06/28/18 04:49 Blood leukocytes automated count (number/volume) 11.0 10*3/uL 4.3-11.0 Blood erythrocytes automated count (number/volume) 5.37 10*6/uL 4.35-5.85 Venous blood hemoglobin measurement (mass/volume) 16.4 g/dL 13.3-17.7 Blood hematocrit (volume fraction) 52 % 40-54 Automated erythrocyte mean corpuscular volume 96 [ foz_us] 80-99 Automated erythrocyte mean corpuscular h emoglobin (mass per erythrocyte) 31 pg 25-34 Automated erythrocyte mean corpuscular h emoglobin concentration measurement (mass/volume) 32 g/dL 32-36 Automated erythrocyte distribution width ratio 16. 9 % 10.0- 14.5 Automated blood platelet count [...] 10*3 1.0-4.0 Blood monocytes automated count (number/volume) 0. 6 10*3 0.0-1.0 Automated eosinophil count 0.0 10*3/uL 0 .0-0.3 Automated blood basophil count (count/volume) 0.0 10*3/uL 0.0-0.1 Whole blood basic metabolic panel - 06/06 05/24 04:49 Serum or plasma sodium measurement (moles/volume) 141 mmol/L 135-145 Serum or plasma potassium measurement (moles/volume) 4.2 mmol/L 3.6-5.0 Serum or plasma chloride measurement (moles/volume) 98 mmol/L 98-107 Carbon dioxide 31 mmol/L 21-32 Serum or plasma anion gap determination (moles/volume) 12 mmol/L 5-14 Serum or plasma urea nitrogen measurement (mass/volume ) 32 mg/dL 7-18 Serum or plasma creatinine measurement (mass/volume) 0.93 mg/dL 0.60-1.30 Serum or plasma urea nitrogen/creatinine mass ratio 34 NRG Serum or plasma creatinine measurement w ith calculation of estimated glomerular filtration rate > NRG Serum or plasma glucose measurement (mass/volume) 162 mg/dL 70-105 Serum or plasma calcium measurement (mass/volume) 9.3 mg/dL 8.5-10.1 Magnesium - 06/28/18 04:49 Magnesium 3.0 mg/dL 1.8-2.4 Serum or plasma lithium measurement (mol es/volume) - 06/28/18 04:49 BNP level 124.2 pg/mL <100.0 Serum or plasma phosphate measurement (m ass/volume) - 06/28/18 05:00 Serum or plasma phosphate measurement (mass/volume) 3.9 mg/dL 2.3-4.7 Complete blood count (CBC) with automate d white blood cell (WBC) differential - 06/29/18 04:50 Blood leukocytes automated count (number/volume) 12.2 10*3/uL 4.3-11.0 Blood erythrocytes automated count (number/volume) 5.51 10*6/uL 4.35-5.85 Venous blood hemoglobin measurement (mass/volume) 16.7 g/dL 13.3-17.7 Blood hematocrit (volume fraction) 53 % 40-54 Automated erythrocyte mean corpuscular volume 96 [ foz_us] 80-99 Automated erythrocyte mean corpuscular h emoglobin (mass per erythrocyte) 30 pg 25-34 Automated erythrocyte mean corpuscular h emoglobin concentration measurement (mass/volume) 32 g/dL 32-36 Automated erythrocyte distribution width ratio 17. 2 % 10.0- 14.5 Automated blood platelet count [...] 10*3 1.0-4.0 Blood monocytes automated count (number/volume) 0. 7 10*3 0.0-1.0 Automated eosinophil count 0.0 10*3/uL 0 .0-0.3 Automated blood basophil count (count/volume) 0.0 10*3/uL 0.0-0.1 Serum or plasma phosphate measurement (m ass/volume) - 06/29/18 04:50 Serum or plasma phosphate measurement (mass/volume) 3.6 mg/dL 2.3-4.7 Whole blood basic metabolic panel - 06/06 06/23 04:50 Serum or plasma sodium measurement (moles/volume) 142 mmol/L 135-145 Serum or plasma potassium measurement (moles/volume) 4.5 mmol/L 3.6-5.0 Serum or plasma chloride measurement (moles/volume) 101 mmol/L 98-107 Carbon dioxide 30 mmol/L 21-32 Serum or plasma anion gap determination (moles/volume) 11 mmol/L 5-14 Serum or plasma urea nitrogen measurement (mass/volume ) 33 mg/dL 7-18 Serum or plasma creatinine measurement (mass/volume) 0.86 mg/dL 0.60-1.30 Serum or plasma urea nitrogen/creatinine mass ratio 38 NRG Serum or plasma creatinine measurement w ith calculation of estimated glomerular filtration rate > NRG Serum or plasma glucose measurement (mass/volume) 170 mg/dL 70-105 Serum or plasma calcium measurement (mass/volume) 9.3 mg/dL 8.5-10.1 Magnesium - 06/29/18 04:50 Magnesium 3.2 mg/dL 1.8-2.4 Complete blood count (CBC) with automate d white blood cell (WBC) differential - 06/30/18 04:59 Blood leukocytes automated count (number/volume) 12.8 10*3/uL 4.3-11.0 Blood erythrocytes automated count (number/volume) 5.13 10*6/uL 4.35-5.85 Venous blood hemoglobin measurement (mass/volume) 15.8 g/dL 13.3-17.7 Blood hematocrit (volume fraction) 50 % 40-54 Automated erythrocyte mean corpuscular volume 97 [ foz_us] 80-99 Automated erythrocyte mean corpuscular h emoglobin (mass per erythrocyte) 31 pg 25-34 Automated erythrocyte mean corpuscular h emoglobin concentration measurement (mass/volume) 32 g/dL 32-36 Automated erythrocyte distribution width ratio 16. 9 % 10.0- 14.5 Automated blood platelet count [...] 10*3 1.0-4.0 Blood monocytes automated count (number/volume) 1. 2 10*3 0.0-1.0 Automated eosinophil count 0.0 10*3/uL 0 .0-0.3 Automated blood basophil count (count/volume) 0.0 10*3/uL 0.0-0.1 Whole blood basic metabolic panel - 06/06 07/24 04:59 Serum or plasma sodium measurement (moles/volume) 141 mmol/L 135-145 Serum or plasma potassium measurement (moles/volume) 3.9 mmol/L 3.6-5.0 Serum or plasma chloride measurement (moles/volume) 101 mmol/L 98-107 Carbon dioxide 32 mmol/L 21-32 Serum or plasma anion gap determination (moles/volume) 8 mmol/L 5-14 Serum or plasma urea nitrogen measurement (mass/volume ) 30 mg/dL 7-18 Serum or plasma creatinine measurement (mass/volume) 0.81 mg/dL 0.60-1.30 Serum or plasma urea nitrogen/creatinine mass ratio 37 NRG Serum or plasma creatinine measurement w ith calculation of estimated glomerular filtration rate > NRG Serum or plasma glucose measurement (mass/volume) 131 mg/dL 70-105 Serum or plasma calcium measurement (mass/volume) 8.8 mg/dL 8.5-10.1 Magnesium - 06/30/18 04:59 Magnesium 2.7 mg/dL 1.8-2.4 Serum or plasma phosphate measurement (m ass/volume) - 06/30/18 15:24 Serum or plasma phosphate measurement (mass/volume) 2.9 mg/dL 2.3-4.7 Whole blood basic metabolic panel - 06/06 08/23 04:25 Serum or plasma sodium measurement (moles/volume) 141 mmol/L 135-145 Serum or plasma potassium measurement (moles/volume) 4.0 mmol/L 3.6-5.0 Serum or plasma chloride measurement (moles/volume) 101 mmol/L 98-107 Carbon dioxide 29 mmol/L 21-32 Serum or plasma anion gap determination (moles/volume) 11 mmol/L 5-14 Serum or plasma urea nitrogen measurement (mass/volume ) 29 mg/dL 7-18 Serum or plasma creatinine measurement (mass/volume) 0.75 mg/dL 0.60-1.30 Serum or plasma urea nitrogen/creatinine mass ratio 39 NRG Serum or plasma creatinine measurement w ith calculation of estimated glomerular filtration rate > NRG Serum or plasma glucose measurement (mass/volume) 99 mg/dL 70-105 Serum or plasma calcium measurement (mass/volume) 8.5 mg/dL 8.5-10.1 Serum or plasma phosphate measurement (m ass/volume) - 07/01/18 04:25 Serum or plasma phosphate measurement (mass/volume) 3.0 mg/dL 2.3-4.7 Magnesium - 07/01/18 04:25 Magnesium 2.7 mg/dL 1.8-2.4 THYROID STIMULATING HORMONE - 07/01/18 0 4:25 THYROID STIMULATING HORMONE 2.17 u[iU]/mL 0.35-4.94 Complete blood count (CBC) with automate d white blood cell (WBC) differential - 07/01/18 07:02 Blood leukocytes automated count (number/volume) 12.4 10*3/uL 4.3-11.0 Blood erythrocytes automated count (number/volume) 5.22 10*6/uL 4.35-5.85 Venous blood hemoglobin measurement (mass/volume) 15.8 g/dL 13.3-17.7 Blood hematocrit (volume fraction) 51 % 40-54 Automated erythrocyte mean corpuscular volume 97 [ foz_us] 80-99 Automated erythrocyte mean corpuscular h emoglobin (mass per erythrocyte) 30 pg 25-34 Automated erythrocyte mean corpuscular h emoglobin concentration measurement (mass/volume) 31 g/dL 32-36 Automated erythrocyte distribution width ratio 16. 7 % 10.0- 14.5 Automated blood platelet count [...] 10*3 1.0-4.0 Blood monocytes automated count (number/volume) 1. 2 10*3 0.0-1.0 Automated eosinophil count 0.1 10*3/uL 0 .0-0.3 Automated blood basophil count (count/volume) 0.0 10*3/uL 0.0-0.1 Complete blood count (CBC) with automate d white blood cell (WBC) differential - 07/02/18 04:55 Blood leukocytes automated count (number/volume) 15.7 10*3/uL 4.3-11.0 Blood erythrocytes automated count (number/volume) 5.18 10*6/uL 4.35-5.85 Venous blood hemoglobin measurement (mass/volume) 15.9 g/dL 13.3-17.7 Blood hematocrit (volume fraction) 50 % 40-54 Automated erythrocyte mean corpuscular volume 96 [ foz_us] 80-99 Automated erythrocyte mean corpuscular h emoglobin (mass per erythrocyte) 31 pg 25-34 Automated erythrocyte mean corpuscular h emoglobin concentration measurement (mass/volume) 32 g/dL 32-36 Automated erythrocyte distribution width ratio 16. 4 % 10.0- 14.5 Automated blood platelet count (count/volume) 198 10*3/uL 130-400 Automated blood platelet mean volume measurement 10.4 [foz_us] 7.4-10.4 Automated blood neutrophils/100 leukocytes 82 % 42-75 Automated blood lymphocytes/100 leukocytes 6 % 12-44 Blood monocytes/100 leukocytes 11 % 0-12 Automated blood eosinophils/100 leukocytes 1 % 0-10 Automated blood basophils/100 leukocytes 0 % 0-10 Blood neutrophils automated count (number/volume) 12.9 10*3 1.8-7.8 Blood lymphocytes automated count (number/volume) 1.0 10*3 1.0-4.0 Blood monocytes automated count (number/volume) 1. 7 10*3 0.0-1.0 Automated eosinophil count 0.1 10*3/uL 0 .0-0.3 Automated blood basophil count (count/volume) 0.0 10*3/uL 0.0-0.1 Blood manual differential performed dete ction - 07/02/18 04:55 Blood monocytes/100 leukocytes 15 % NRG Manual blood segmented neutrophils/100 leukocytes 77 % NRG Manual blood lymphocytes/100 leukocytes 7 % NRG Manual eosinophils/100 leukocytes in nose 1 % NRG Whole blood basic metabolic panel - 06/06 09/23 05:15 Serum or plasma sodium measurement (moles/volume) 138 mmol/L 135-145 Serum or plasma potassium measurement (moles/volume) 3.5 mmol/L 3.6-5.0 Serum or plasma chloride measurement (moles/volume) 100 mmol/L 98-107 Carbon dioxide 30 mmol/L 21-32 Serum or plasma anion gap determination (moles/volume) 8 mmol/L 5-14 Serum or plasma urea nitrogen measurement (mass/volume ) 25 mg/dL 7-18 Serum or plasma creatinine measurement (mass/volume) 0.78 mg/dL 0.60-1.30 Serum or plasma urea nitrogen/creatinine mass ratio 32 NRG Serum or plasma creatinine measurement w ith calculation of estimated glomerular filtration rate > NRG Serum or plasma glucose measurement (mass/volume) 103 mg/dL 70-105 Serum or plasma calcium measurement (mass/volume) 8.4 mg/dL 8.5-10.1 Serum or plasma phosphate measurement (m ass/volume) - 07/02/18 05:15 Serum or plasma phosphate measurement (mass/volume) 2.9 mg/dL 2.3-4.7 Magnesium - 07/02/18 05:15 Magnesium 2.7 mg/dL 1.8-2.4 Encounters ACCT No. Visit Date/Time Discharge Status Pt. Type Provider Facility Loc./Unit Complaint [id number] 06/20/2018 17:45:00 06/20/2018 23:59: 59 CLS Out[facility] [id number] 06/20/2018 17:45:00 Document Registration [id number] 04/30/2018 17:40:00 Document Registration [id number] 06/25/2018 01:03:[address] Inpatient KAMRON SILVERIO MD [facility] 4TH SOB [id number] 04/14/2019 21:46:00 020 23:22:00 DIS Emergency NELLA VENTURA DO [facility] ER FS SOB [id number] 06/26/2018 11:00:00 019 12:55:00 DIS Outpatient KAMRON SILVERIO MD [facility] 4TH SOB [id number] 04/04/2018 12:01:00 019 16:57:00 DIS Inpatient KIRBY ALEXIS MD [facility] 4TH CHEST PAIN; PNEUMONIA
== END 2019-04-14 23:22 | disposition home or self-care (01) ==
LOC: EDUNIT# 21:45 → ER FS 21:46
DX: H10.89 Other conjunctivitis (principal); R09.82 Postnasal drip; J44.9 Chronic obstructive pulmonary disease, unspecified; K21.9 Gastro-esophageal reflux disease without esophagitis; F41.9 Anxiety disorder, unspecified; F32.9 Major depressive disorder, single episode, unspecified; F20.9 Schizophrenia, unspecified; Z79.52 Long term (current) use of systemic steroids; Z82.49 Family history of ischemic heart disease and other diseases of the circulatory system
CPT/HCPCS: 71045

== ENCOUNTER → 2019-12-01 | Outpatient (CLI) | payer OTHER, MEDICARE ==
[~2019-12-01] MED LIST changes: +ASPI-1238 PO; -ASPI-983 PO; +OFL.3OP5 OU
[2019-12-01 20:48] LABS: ALANINE AMINOTRANSFERASE 37 U/L (0-55); ALKALINE PHOSPHATASE 105 U/L (40-136); BILIRUBIN,TOTAL 0.8 MG/DL (0.1-1.0); BUN/CREATININE RATIO 24; CALCIUM 9.4 MG/DL (8.5-10.1); CARBON DIOXIDE 34 MMOL/L (21-32); CHLORIDE 99 MMOL/L (98-107); CREATININE SERUM 0.82 MG/DL (0.60-1.30); GFR ESTIMATED > 60; GLUCOSE 103 MG/DL (70-105); POTASSIUM 3.9 MMOL/L (3.6-5.0); SODIUM 144 MMOL/L (135-145)
[2019-12-01 20:49] LABS: ALBUMIN 4.4 GM/DL (3.2-4.5); TOTAL PROTEIN 7.6 GM/DL (6.4-8.2)
[2019-12-01 22:46] LABS: TRIGLYCERIDES 211 MG/DL (<150); VLDL CHOLESTEROL 42 MG/DL (5-40)
[2019-12-01 22:50] LABS: CHOLESTEROL 155 MG/DL (< 200)
[2019-12-01 22:51] LABS: HDL CHOLESTEROL 43 MG/DL (40-60)
== END ==
LOC: LAB FS 15:33
PROVIDERS: ATTEND Pediatrics
DX: E78.5 Hyperlipidemia, unspecified (principal)
CPT/HCPCS: 36415; 80053; 80061

== ENCOUNTER → 2021-07-12 | Outpatient (CLI) | payer MEDICARE ==
[~2021-07-12] MED LIST changes: -FOLI0.4T2 PO; +FOLI0.4T6 PO; +SERT-414 PO; -SERT100T8 PO
[2021-07-12 13:16] LABS: BILIRUBIN,URINE NEGATIVE (NEGATIVE); CLARITY,URINE SL CLOUDY; COLOR,URINE YELLOW; GLUCOSE, URINE (UA) NEGATIVE (NEGATIVE); KETONES,URINE NEGATIVE (NEGATIVE); LEUKOCYTE ESTERASE ,URINE TRACE (NEGATIVE); NITRITE,URINE NEGATIVE (NEGATIVE); PROTEIN,URINE NEGATIVE (NEGATIVE)
[2021-07-12 13:23] LABS: BACTERIA,URINE NEGATIVE /HPF; SQUAMOUS EPITHELIAL CELL,UR RARE /HPF
[2021-07-12 13:24] LABS: CALCIUM OXALATE CRYSTALS,UR MODERATE /LPF
== END ==
PROVIDERS: ATTEND Pediatrics
DX: R30.0 Dysuria (principal)
CPT/HCPCS: 81000; 87088

== ENCOUNTER 2022-03-29 19:35 | Inpatient (IN) | payer MEDICARE ==
[~2022-03-29] VITALS: Ht 187 cm; Wt 163.0 kg
[2022-03-29] MEDS ORDERED: cefTRIAXone 1 GM PRE-MIX 50 ML IV ONE (20:00)
[2022-03-29] MEDS ORDERED: RT-ALBUTEROL/IPRATROPIUM 3 ML (DUONEB) VIAL IH ONE (20:00)
--- NOTE | 2022-03-29 20:04 | ED Respiratory ---
General Chief Complaint: Respiratory Problems Stated Complaint: RESP DISTRESS Source: patient, EMS, [place] [facility] records, old records Exam Limitations: no limitations History of Present Illness Date Seen by Provider: Mar 29, 2022 Time Seen by Provider: 19:38 Initial Comments 56-year-old male with past medical history of chronic respiratory failure on 3 L oxygen, COPD, hypertension, diabetes coming in via EMS from the [place] [facility] due to respiratory failure. He was taking a shower, was apparently blue in the arms per nursing report, and placed on CPAP for them. He does wear CPAP at [facility]. He was 88% on arrival of EMS on the [facility] CPAP and transitioned to the EMS CPAP with improvement to 94%. He states he does have increasing productive cough, denies fever, vomiting, diarrhea, chest pain, or any other concerns. He has not had any therapies including any DuoNebs today. Allergies and Home Medications Allergies Coded Allergies: No Known Drug Allergies (Unverified , 04/04/18) Patient Home Medication List Home Medication List Reviewed: Yes Acetaminophen (Tylenol Extra Strength) 500 Mg Tablet, 1,000 MG PO Q8H PRN for PAIN-MILD, (Reported) Entered as Reported by: ERIN GONSALEZ on 06/25/18 0850 Aspirin (Aspirin EC) 81 Mg Tablet.dr, 81 MG PO DAILY, (Reported) Entered as Reported by: ERIN GONSALEZ on 06/25/18 0850 Atorvastatin Calcium (Lipitor) 40 Mg Tablet, 40 MG PO HS, (Reported) Entered as Reported by: ERIN GONSALEZ on 06/25/18 0850 Cephalexin (Keflex) 500 Mg Capsule, 500 MG PO QIDACHS Prescribed by: NELLA VENTURA on 04/14/192207 Famotidine (Acid Boom Cat Operator (FAMOTIDINE)) 20 Mg Tablet, 20 MG PO DAILY, (Reported) Entered as Reported by: ERIN GONSALEZ on 06/25/18 0850 Folic Acid (Folic Acid) 0.4 Mg Tablet, 0.8 MG PO DAILY, (Reported) Entered as Reported by: ERIN GONSALEZ on 06/25/18 0850 Haloperidol (Haloperidol) 5 Mg Tablet, 5 MG PO HS, (Reported) Entered as Reported by: ERIN GONSALEZ on 06/25/18 0850 Hydrocortisone (Hydrocortisone) 28.35 Gm Cream..g., TP Q8H PRN for RASH, (Reported) Entered as Reported by: ERIN GONSALEZ on 06/25/18 0850 Hydrocortisone (Hydrocortisone) 28.35 Gm Cream..g., TP UD PRN for RASH, (Reported) Entered as Reported by: ERIN GONSALEZ on 06/25/18 0850 Loperamide HCl (Loperamide) 2 Mg Tablet, PO UD PRN for DIARRHEA, (Reported) Entered as Reported by: ERIN GONSALEZ on 06/25/18 0850 Lorazepam (Lorazepam) 0.5 Mg Tablet, 0.5 MG PO BID, (Reported) Entered as Reported by: ERIN GONSALEZ on 06/25/18 0850 Metoprolol Succinate (Metoprolol Succinate) 25 Mg Tab.er.24h, 25 MG PO DAILY, (Reported) Entered as Reported by: ERIN GONSALEZ on 06/25/18 0850 Miconazole (Miconazole) 5 Gm Powder, TOP Q12H PRN for GAULDING/REDNESS, (Reported) Entered as Reported by: ERIN GONSALEZ on 06/25/18 0850 Ofloxacin (Ocuflox) 5 Ml Soln, 2 DROPS OU Q3HR Prescribed by: NELLA VENTURA on 04/14/192207 Polyethylene Glycol 3350 (Miralax) 17 Gm Powd.pack, 17 GM PO DAILY, (Reported) Entered as Reported by: ERIN GONSALEZ on 06/25/18 0850 Prednisone (Prednisone) 10 Mg Tab, 40 MG PO DAILY Prescribed by: KAMRON SILVERIO on 07/02/18 1130 Quetiapine Fumarate (Seroquel) 50 Mg Tablet, 50 MG PO DAILY, (Reported) Entered as Reported by: ERIN GONSALEZ on 06/25/18 0850 Quetiapine Fumarate (Seroquel) 300 Mg Tablet, 150 MG PO HS, (Reported) Entered as Reported by: ERIN GONSALEZ on 06/25/18 0854 Sertraline HCl (Sertraline HCl) 100 Mg Tablet, 100 MG PO DAILY, (Reported) Entered as Reported by: ERIN GONSALEZ on 06/25/18 0850 Triamcinolone Acet (Triamcinolone Acetonide 0.1% Cream) 15 Gm Cr, TP DAILY PRN for RASH, (Reported) Entered as Reported by: ERIN GONSALEZ on 06/25/18 0850 Review of Systems Review of Systems Constitutional: No fever EENTM: no symptoms reported Respiratory: cough Cardiovascular: No chest pain Gastrointestinal: no symptoms reported Genitourinary: no symptoms reported Musculoskeletal: no symptoms reported Past Yxsvvls-Wajvxy-Gehiwn Hx Patient Social History Substance use?: No Seasonal Allergies Seasonal Allergies: No Past Medical History Surgeries: Yes (PT. HAS HAD A TRACH) Abdominal Respiratory: Yes (wears O2 at night time) COPD Cardiac: No Neurological: No Gastrointestinal: Yes Gastroesophageal Reflux, Gall Bladder Disease Musculoskeletal: Yes (generalized muscle weakness) HEENT: Yes Dysphagia Cancer: No Psychosocial: Yes Anxiety, Schizophrenia, Depression Integumentary: Yes (dry skin throughout the year ) Blood Disorders: No Adverse Reaction/Blood Tranf: No Family Medical History Arthritis Asthma Cardiovascular disease Cataracts Colon cancer Completed stroke Congenital heart disease Coronary thrombosis Deafness or hearing loss Diabetes mellitus Hypertension Kidney disease Myocardial infarction Psychosocial problem Respiratory disorder Thyroid disease Physical Exam Vital Signs - First Documented 03/29/22 03/29/22 19:35 20:20 Temp 37.9 Pulse 98 Resp 23 B/P (MAP) 113/80 (91) Pulse Ox 96 O2 Delivery NIV Bilevel O2 Flow Rate 3.00 FiO2 100 Capillary Refill : Height: 5'10.00" Weight: 290lbs. 8.0oz. 131.133459jv; 43.00 BMI Method:Stated General Appearance: WD/WN, no apparent distress, other (Comfortable on CPAP) Eyes: Bilateral Eye Normal Inspection HEENT: PERRL/EOMI, normal ENT inspection, pharynx normal Neck: non-tender, full range of motion, supple, normal inspection Respiratory: chest non-tender, no accessory muscle use, wheezing Cardiovascular: regular rate, rhythm, no edema, no murmur Gastrointestinal: normal bowel sounds, non tender, soft; No distended, No guarding, No rebound Extremities: normal range of motion, non-tender, normal inspection, no pedal edema, no calf tenderness, normal capillary refill Neurologic/Psychiatric: no motor/sensory deficits, alert, normal mood/affect Skin: normal color, warm/dry Lymphatic: no adenopathy Progress/Results/Core Measures Suspected Sepsis SIRS Temperature: Pulse: Respiratory Rate: Laboratory Tests 03/29/22 19:45: White Blood Count 12.6H Blood Pressure / Mean: Laboratory Tests 03/29/22 19:45: Creatinine 1.03, INR Comment 0.9, Platelet Count 156, Total Bilirubin 1.0 Results/Orders Lab Results Laboratory Tests Test 03/29/22 19:45 03/29/22 20:10 03/29/22 20:39 Range/Units White Blood Count 12.6 H 4.3-11.0 10^3/uL Red Blood Count 4.49 4.30-5.52 10^6/uL Hemoglobin 13.7 13.3-17.7 g/dL Hematocrit 43 40-54 % Mean Corpuscular Volume 97 80-99 fL Mean Corpuscular Hemoglobin 31 25-34 pg Mean Corpuscular Hemoglobin Concent 32 32-36 g/dL Red Cell Distribution Width 14.5 10.0-14.5 % Platelet Count 156 130-400 10^3/uL Mean Platelet Volume 11.8 9.0-12.2 fL Immature Granulocyte % (Auto) 0 % Neutrophils (%) (Auto) 82 H 42-75 % Lymphocytes (%) (Auto) 8 L 12-44 % Monocytes (%) (Auto) 8 0-12 % Eosinophils (%) (Auto) 1 0-10 % Basophils (%) (Auto) 0 0-10 % Neutrophils # (Auto) 10.4 H 1.8-7.8 10^3/uL Lymphocytes # (Auto) 1.0 1.0-4.0 10^3/uL Monocytes # (Auto) 1.0 0.0-1.0 10^3/uL Eosinophils # (Auto) 0.2 0.0-0.3 10^3/uL Basophils # (Auto) 0.1 0.0-0.1 10^3/uL Immature Granulocyte # (Auto) 0.1 0.0-0.1 10^3/uL Neutrophils % (Manual) 63 % Lymphocytes % (Manual) 9 % Monocytes % (Manual) 5 % Eosinophils % (Manual) 2 % Band Neutrophils 21 % Platelet Estimate NORMAL Blood Morphology Comment NORMAL Prothrombin Time 12.8 12.2-14.7 SEC INR Comment 0.9 0.8-1.4 Activated Partial Thromboplast Time 27 24-35 SEC Sodium Level 139 135-145 MMOL/L Potassium Level 4.4 3.6-5.0 MMOL/L Chloride Level 96 L 98-107 MMOL/L Carbon Dioxide Level 32 21-32 MMOL/L Anion Gap 11 5-14 MMOL/L Blood Urea Nitrogen 15 7-18 MG/DL Creatinine 1.03 0.60-1.30 MG/DL Estimat Glomerular Filtration Rate 84 BUN/Creatinine Ratio 15 Glucose Level 254 H 70-105 MG/DL Calcium Level 9.2 8.5-10.1 MG/DL Corrected Calcium 9.2 8.5-10.1 MG/DL Magnesium Level 1.8 1.6-2.4 MG/DL Total Bilirubin 1.0 0.1-1.0 MG/DL Aspartate Amino Transf (AST/SGOT) 38 H 5-34 U/L Alanine Aminotransferase (ALT/SGPT) 51 0-55 U/L Alkaline Phosphatase 109 40-136 U/L Troponin I < 0.30 <0.30 NG/ML Pro-B-Type Natriuretic Peptide 445.0 H <125.0 PG/ML Total Protein 8.1 6.4-8.2 GM/DL Albumin 4.0 3.2-4.5 GM/DL Influenza Type A (RT-PCR) Not Detected Not Detecte Influenza Type B (RT-PCR) Not Detected Not Detecte SARS-CoV-2 RNA (RT-PCR) Not Detected Not Detecte Blood Gas Puncture Site RT RADIAL Blood Gas Patient Temperature 37.9 Arterial Blood pH 7.41 7.37-7.43 Arterial Blood Partial Pressure CO2 55 H 35-45 MMHG Arterial Blood Partial Pressure O2 117 H 79-93 MMHG Arterial Blood HCO3 35 H 23-27 MMOL/L Arterial Blood Total CO2 36.6 H 21.0-31.0 MMOL/L Arterial Blood Oxygen Saturation 99 94-100 % Arterial Blood Base Excess 8.6 H -2.5-2.5 MMOL/L Bud Test YES-POS Blood Gas Ventilator Setting NO Blood Gas Inspired Oxygen BIPAP My Orders Orders - ROSA RAMIREZ MD Cbc With Automated Diff (03/29/22 19:56) Magnesium (03/29/22 19:56) Chest 1 View Ap/Pa Only (03/29/22 19:56) Ekg Tracing (03/29/22 19:56) Comprehensive Metabolic Panel (03/29/22 19:56) Protime With Inr (03/29/22 19:56) Partial Thromboplastin Time (03/29/22 19:56) O2 (03/29/22 19:56) Monitor-Rhythm Ecg Trace Only (03/29/22 19:56) Ed Iv/Invasive Line Start (03/29/22 19:56) Troponin I Fs (03/29/22 19:56) Probnp Fs (03/29/22 19:56) Influenza A And B By Pcr (03/29/22 19:56) Covid 19 Inhouse Test (03/29/22 19:56) Bipap (Bilevel) Set Up (03/29/22 19:56) Albuterol/Ipra Inhalation Soln (Duoneb I (03/29/22 20:00) Ceftriaxone 1 Gm Pre-Mix (Rocephin 1 Gm (03/29/22 20:00) Dexamethasone Injection (Decadron Inje (03/29/22 20:00) Arterial Blood Gas (03/29/22 20:28) Furosemide Injection (Lasix Injection) (03/29/22 20:30) Manual Differential (03/29/22 19:45) Lorazepam Injection (Ativan Injection) (03/29/22 20:45) Medications Given in ED Current Medications Medications Dose Ordered Sig/Kevin Route Start Time Stop Time Status Last Admin Dose Admin Albuterol/ Ipratropium 3 ml ONCE ONCE IH 03/29/22 20:00 03/29/22 20:01 DC 03/29/22 20:05 3 ML Ceftriaxone Sodium/Dextrose 50 ml @ 100 mls/hr ONCE ONCE IV 03/29/22 20:00 03/29/22 20:29 DC 03/29/22 20:05 100 MLS/HR Dexamethasone Sodium Phosphate 10 mg ONCE ONCE IV 03/29/22 20:00 03/29/22 20:01 DC 03/29/22 20:06 10 MG Furosemide 40 mg ONCE ONCE IVP 03/29/22 20:30 03/29/22 20:31 DC 03/29/22 20:41 40 MG Lorazepam 1 mg ONCE ONCE IVP 03/29/22 20:45 03/29/22 20:46 DC 03/29/22 20:43 1 MG Vital Signs/I&O 03/29/22 03/29/22 03/29/22 03/29/22 19:35 19:35 20:10 20:20 Temp 37.9 Pulse 98 Resp 23 B/P (MAP) 113/80 (91) Pulse Ox 96 O2 Delivery NIV Bilevel NIV Bilevel NIV Bilevel Nasal Cannula O2 Flow Rate 3.00 FiO2 100 60 Capillary Refill : Progress Note : Progress Note 56-year-old male with above history coming in due to respiratory distress. The patient was on CPAP satting in the high 80s to low 90s. Transition to BiPAP on arrival here with improvement in his oxygen saturation and work of breathing. Trialed facemask at 7 L, he desatted fairly rapidly, uptitrated to 10 L, work of breathing increased still, and he went back to BiPAP. Given his history of COPD on his chart, gave ceftriaxone, DuoNeb, IV Decadron for potential COPD exacerbation in the setting of increased productive cough per the patient. Ch est x-ray with cardiomegaly and no overt heart failure. Give him 40 mg of IV Lasix to try to optimize his lungs the best as possible. Flu and COVID- negative, Trope negative, proBNP slightly elevated, white blood cell count slightly elevated, normal creatinine. I called and discussed the case with Dr. Davis who will admit the patient to the intensive care unit for further evalu ation and management under inpatient status. I then contacted the ICU physician for signout. She recommended a D-dimer, if positive likely will just anticoagulate given the patient would not tolerate laying flat for CT scan. ECG Initial ECG Impression Date: Mar 29, 2022 Initial ECG Impression Time: 20:11 Initial ECG Rate: 98 Initial ECG Rhythm: Normal Sinus Comment On my interpretation narrow QRS, normal axis, ST depression in the lateral leads, no STEMI Diagnostic Imaging Diagonstic Imaging: Xray Plain Films/CT/US/NM/MRI: chest Comments NAME: MEJIA MCNULTY [facility] REC#: [id number] PT STATUS: REG ER : 1965 PHYSICIAN: ROSA RAMIREZ MD ADMIT DATE: 03/29/22/ER FS Draft Date of Exam:03/29/22 CHEST 1 VIEW AP/PA ONLY CLINICAL INDICATION: Patient with shortness of breath. EXAM: Portable chest x-ray upright view. COMPARISON: Chest x-ray dated 04/14/2019. FINDINGS: There is mild right basilar atelectasis. There are amorphous opacities in the left lung base which may represent atelectasis, but superimposed infiltrate cannot be complete excluded. There is no pleural effusion or pneumothorax. There is again seen significant cardiomegaly with minimal pulmonary vascular prominence. There are degenerative spurs involving the spine. IMPRESSION: 1: There is bibasilar atelectasis, but superimposed infiltrate involving the left lung base cannot be completely excluded. 2: Again seen is cardiomegaly with minimal pulmonary vascular prominence. Dictated on workstation # [id number] Dict: 03/29/222019 Trans: 03/29/222029 [facility] [id number] Interpreted by: MEE MUSE MD Electronically signed by: Departure Impression Primary Impression: Acute and chronic respiratory failure Disposition: 30 STILL A PATIENT Condition: Stable Admissions Decision to Admit Reason: Admit from ER (General) Decision to Admit/Date: Mar 29, 2022 Time/Decision to Admit Time: 20:40 Transfer Method of Transfer: EMS Departure-Patient Inst. Referrals: LEEROY MCDUFFIE MD (PCP/Family) Primary Care Physician ROSA RAMIREZ MD Mar 29, 2022 20:04
[2022-03-29 20:25] LABS: INR 0.9 (0.8-1.4); PROTHROMBIN TIME PATIENT 12.8 SEC (12.2-14.7)
[2022-03-29 20:26] LABS: CALCIUM 9.2 MG/DL (8.5-10.1); CREATININE SERUM 1.03 MG/DL (0.60-1.30); MAGNESIUM 1.8 MG/DL (1.6-2.4); POTASSIUM 4.4 MMOL/L (3.6-5.0)
[2022-03-29 20:27] LABS: TOTAL PROTEIN 8.1 GM/DL (6.4-8.2)
[2022-03-29] MEDS ORDERED: FUROSEMIDE 40 MG/4 ML INJ (LASIX) IVP ONE (20:30)
--- NOTE | 2022-03-29 20:30 | Diagnostic Imaging Report ---
CLINICAL INDICATION: Patient with shortness of breath. EXAM: Portable chest x-ray upright view. COMPARISON: Chest x-ray dated 04/14/2019. FINDINGS: There is mild right basilar atelectasis. There are amorphous opacities in the left lung base which may represent atelectasis, but superimposed infiltrate cannot be complete excluded. There is no pleural effusion or pneumothorax. There is again seen significant cardiomegaly with minimal pulmonary vascular prominence. There are degenerative spurs involving the spine. IMPRESSION: 1: There is bibasilar atelectasis, but superimposed infiltrate involving the left lung base cannot be completely excluded. 2: Again seen is cardiomegaly with minimal pulmonary vascular prominence. Dictated by: Dictated on workstation # [id number]
[2022-03-29 20:35] LABS: BASOPHILS # (AUTO) 0.1 10^3/uL (0.0-0.1); BASOPHILS % (AUTO) 0 % (0-10); EOSINOPHILS # (AUTO) 0.2 10^3/uL (0.0-0.3); EOSINOPHILS % (AUTO) 1 % (0-10); HEMATOCRIT 43 % (40-54); HEMOGLOBIN 13.7 g/dL (13.3-17.7); LYMPHOCYTES % (AUTO) 8 % (12-44); MEAN CORPUSCULAR HEMOGLOBIN 31 pg (25-34); MEAN CORPUSCULAR HGB CONC 32 g/dL (32-36); MEAN CORPUSCULAR VOLUME 97 fL (80-99); MEAN PLATELET VOLUME 11.8 fL (9.0-12.2); MONOCYTES % (AUTO) 8 % (0-12); NEUTROPHILS # (AUTO) 10.4 10^3/uL (1.8-7.8); NEUTROPHILS % (AUTO) 82 % (42-75); PLATELET COUNT 156 10^3/uL (130-400); WHITE BLOOD COUNT 12.6 10^3/uL (4.3-11.0)
[2022-03-29 20:36] LABS: BAND NEUTROPHILS 21 %; EOSINOPHILS % (MANUAL) 2 %; LYMPHOCYTES % (MANUAL) 9 %; MONOCYTES % (MANUAL) 5 %; NEUTROPHILS % (MANUAL) 63 %
[2022-03-29 20:37] LABS: PLATELET ESTIMATE NORMAL; RBC MORPH NORMAL
[2022-03-29 20:44] LABS: ABG BASE EXCESS 8.6 MMOL/L (-2.5-2.5); ABG PCO2 55 MMHG (35-45); ABG PH 7.41 (7.37-7.43); ABG PO2 117 MMHG (79-93); ABG TCO2 36.6 MMOL/L (21.0-31.0)
[2022-03-29 20:45] LABS: ABG OXYGEN SATURATION 99 % (94-100)
[2022-03-29] MEDS ORDERED: LORazepam INJ 2 MG/ML (ATIVAN) VIAL IVP ONE (20:45)
[2022-03-29 20:46] LABS: INSPIRED O2 BIPAP; VENTILATOR NO
[2022-03-29 20:47] LABS: ALLENS TEST YES-POS; PATIENT TEMP 37.9
[2022-03-29 22:27] VITALS: BP 138/78
[2022-03-29] MEDS ORDERED: DexMEDEtomidine 250 ML DRIP 250 ML IV ONE (22:59)
[2022-03-29] MEDS ORDERED: ACETAMINOPHEN 500 MG TAB (TYLENOL) PO PRN (23:15)
[2022-03-29] MEDS ORDERED: DexMEDEtomidine 1,000 MCG/250 ML IV SCH (23:15)
[2022-03-29] MEDS ORDERED: LORazepam INJ 2 MG/ML (ATIVAN) VIAL IV PRN (23:15)
[2022-03-29] MEDS ORDERED: ONDANSETRON 4 MG/2 ML (SDV) Z0FRAN IV PRN (23:15)
[2022-03-29 23:21] VITALS: BP 181/71
[2022-03-29] MEDS ORDERED: RT-ALBUTEROL/IPRATROPIUM 3 ML (DUONEB) VIAL INH PRN (23:30)
[2022-03-29] MEDS ORDERED: RT-ALBUTEROL SULF 2.5 MG/3 ML PRE-MIX VIAL INH PRN (23:30)
--- NOTE | 2022-03-29 23:44 | Tele-ICU Progress Note ---
Progress Note 56M with COPD on 3L home O2, HTN, DM, CHF with EF 40-45% and grade 1 diastolic dysfxn (06/2018), schizophrenia transferred from ID for hypoxia. Per report his arms were blue while he was in the shower. Placed on CPAP at ID. On EMS arrival was 88% on CPAP. Transitioned to EMS CPAP with improvement to 94%. +productive cough. In ED he was transitioned to BiPap. Follow up ABG 7.41/55/117. Flu and COVID negative. Per ER MD, poor aeration throughout. Faint wheezing noted. CXR with bibasilar atelectasis, can not exclude infiltrate. In ED given lasix, duoneb, decadron, rocephin. Plan: - hypoxia: Probable COPD exacerbation, possible superimposed infection. Can not exclude CHF component. Had been concerned about PE but patient would not tolerate lying flat for imaging. Ddimer added on, only 0.4. Will not initiate empiric AC with that low of a ddimer. Continue BiPap with weaning as tolerated. Scheduled and PRN nebs, continue rocephin, start azithro. Continue steroids. Check echo in AM. - hyperglycemia: glucose 254 on chemistry. Received steroids after. No prior documentation of DM. Has never been this high on prior admits. Will send A1C. May have new DM or may be related to quitiepine. ISS ordered. Patient assessed via real-time audiovisual communication system. CCT 28 min Focused Exam Height, Weight, BMI Height: 5'10.00" Weight: 290lbs. 8.0oz. 131.835644yn; 45.95 BMI Method:Stated MARK DAMON MD Mar 29, 2022 23:44
[2022-03-30] MEDS: inSUlin ASPART (NovoLOG) 1 UNIT/0.01 ML (CHARGE PER UNIT) SC SCH ×5 (00:56→23:45)
[2022-03-30] MEDS: AZITHROMYCIN INJECTION 500 MG in NS (IVPB) 250 ML IV SCH ×2 (00:57→20:00)
[2022-03-30] MEDS ORDERED: RT-ALBUTEROL/IPRATROPIUM 3 ML (DUONEB) VIAL INH SCH (03:00)
[2022-03-30 04:23] LABS: BASOPHILS # (AUTO) 0.1 10^3/uL (0.0-0.1); BASOPHILS % (AUTO) 0 % (0-10); EOSINOPHILS % (AUTO) 0 % (0-10); HEMATOCRIT 41 % (40-54); HEMOGLOBIN 13.2 g/dL (13.3-17.7); LYMPHOCYTES # (AUTO) 0.9 10^3/uL (1.0-4.0); LYMPHOCYTES % (AUTO) 6 % (12-44); MEAN CORPUSCULAR HEMOGLOBIN 31 pg (25-34); MEAN CORPUSCULAR HGB CONC 32 g/dL (32-36); MEAN CORPUSCULAR VOLUME 95 fL (80-99); MEAN PLATELET VOLUME 10.8 fL (9.0-12.2); MONOCYTES # (AUTO) 0.8 10^3/uL (0.0-1.0); MONOCYTES % (AUTO) 5 % (0-12); NEUTROPHILS # (AUTO) 13.4 10^3/uL (1.8-7.8); NEUTROPHILS % (AUTO) 88 % (42-75); PLATELET COUNT 174 10^3/uL (130-400); WHITE BLOOD COUNT 15.3 10^3/uL (4.3-11.0)
[2022-03-30 04:49] LABS: ALBUMIN 3.9 GM/DL (3.2-4.5); POTASSIUM 4.3 MMOL/L (3.6-5.0)
[2022-03-30 04:50] LABS: CALCIUM 9.3 MG/DL (8.5-10.1)
[2022-03-30 04:52] LABS: TOTAL PROTEIN 8.1 GM/DL (6.4-8.2)
[2022-03-30 04:53] LABS: BILIRUBIN,TOTAL 1.1 MG/DL (0.1-1.0)
[2022-03-30 04:55] LABS: CREATININE SERUM 1.23 MG/DL (0.60-1.30); PHOSPHORUS 2.4 MG/DL (2.3-4.7)
[2022-03-30 05:00] LABS: MAGNESIUM 1.9 MG/DL (1.6-2.4)
[2022-03-30] MEDS ORDERED: MAGNESIUM 1 GM/100 ML IVPB 200 ML IV ONE (05:32)
[2022-03-30] MEDS: MAGNESIUM 1 GM/100 ML IVPB 100 ML IV SCH ×2 (05:35→05:36)
[2022-03-30] MEDS: methylPREDNISolone 40 MG/ML (Solu-MEDROL) VIAL IV SCH ×2 (05:35→12:58)
[2022-03-30] MEDS: CATHETER FLUSH 10 ML SYR IVP SCH ×3 (05:38→20:02)
[2022-03-30] MEDS: RT-ALBUTEROL SULF 2.5 MG/3 ML PRE-MIX VIAL INH SCH ×3 (07:02→19:57)
[2022-03-30 07:06] VITALS: BP 102/50
[2022-03-30] MEDS: QUEtiapine 100 MG (SEROquel) TAB IMMEDIATE RELEASE PO SCH (08:33)
[2022-03-30] MEDS: SERTRALINE 100 MG (ZOLOFT) TAB PO SCH (08:33)
[2022-03-30] MEDS: PANTOPRAZOLE 40 MG (PROTONIX) VIAL IV SCH (08:33)
[2022-03-30] MEDS: ENOXAPARIN 40 MG/0.4 ML (LOVENOX) SYR SC SCH ×2 (10:25→21:46)
--- NOTE | 2022-03-30 10:44 | Tele-ICU Progress Note ---
Subjective Date Seen by a Provider: Mar 30, 2022 Time Seen by a Provider: 10:43 Subjective/Events-last exam (Tele-ICU Physician , Progress Note ) Service provided via interactive audio and video telecommunPeel-Works E-CARE system to a patient admitted to ICU bed in [facility]. Patient is seen today due to persistent need of ICU care Available chart/ vitals / labs / Images reviewed Video assessment done using teleICU camera, rest of exam as per RN Discussed with RN Events overnight : Afebrile hemodynamically stable Respiratory - 10 L I/O = even Drips: Pressors- no Consultants: Hospital course: 56M with COPD on 3L home O2, HTN, DM, CHF with EF 40-45% and grade 1 diastolic dysfxn (06/2018), schizophrenia transferred from [place] for [place]. Per report his arms were blue while he was in the shower. Placed on CPAP at [place]. On EMS arrival was 88% on CPAP. Transitioned to EMS CPAP with improvement to 94%. +productive cough. In ED he was transitioned to BiPap. Follow up ABG 7.41/55/117. Flu and COVID negative. A/P - hypoxia: Probable COPD exacerbation, possible superimposed infection. Can not exclude CHF component. Had been concerned about PE but patient would not tolerate lying flat for imaging. Ddimer only 0.4. -Will not initiate empiric AC with that low of a ddimer. -off BiPap - on 10 l now Consfuison? - ? baseline - off precedex , awake AECOPD Continue steroids - Scheduled and PRN nebs PNA, possible - -continue rocephin, azithro. CHF suspected -echo in AM hyperglycemia - send A1C. May have new DM or may be related to quitiepine. -SS ordered. Lines : peroiph , (Central Line Necessity Reviewed) Ny: + OG: Nutrition: po Analgesia: Anxiety/ delirium VTE Prophylaxis: jean e Stress Ulcer Prophylaxis: na Plans in collaboration with bedside consultants and IM MDs. Discussed with RN to reach out if any questions or concerns A total of 25 _ minutes of critical care time was devoted to this patient today, required to treat and/or prevent further deterioration of critical care condition ( as above ) . I am remotely monitoring this patient from another state. I am unable to do the bedside exam, and history/physical and pertinent information is taken from other notes in the computer and bedside staff. Sepsis Event Evaluation Height, Weight, BMI Height: 5'10.00" Weight: 290lbs. 8.0oz. 131.690229lj; 46.21 BMI Method:Stated Exam Exam Patient acknowledged, consented, and participated in this virtual visit which was conducted using real time audio/video Vital Signs Date Time Temp Pulse Resp B/P (MAP) Pulse Ox O2 Delivery O2 Flow Rate FiO2 03/30/22 10:10 High Flow N/C 8.00 03/30/22 10:00 70 14 104/54 (71) 94 High Flow N/C 10.00 03/30/22 09:00 68 17 112/55 (74) 94 High Flow N/C 10.00 03/30/22 08:39 High Flow N/C 10.00 03/30/22 08:00 74 14 104/57 (73) 93 High Flow N/C 10.00 03/30/22 07:59 36.0 03/30/22 07:30 94 High Flow N/C 10.00 03/30/22 07:26 61 03/30/22 07:06 56 19 96 60.00 03/30/22 07:00 57 18 102/50 (67) 96 NIV Bilevel 60.00 03/30/22 06:00 60 16 106/50 (68) 96 NIV Bilevel 60.00 03/30/22 05:00 64 15 105/57 (73) 95 NIV Bilevel 60.00 03/30/22 04:00 68 20 107/53 (71) 95 NIV Bilevel 60.00 03/30/22 03:00 78 17 106/58 (74) 95 NIV Bilevel 60.00 03/30/22 02:00 79 17 109/57 (74) 95 NIV Bilevel 60.00 03/30/22 01:00 76 19 103/54 (70) 96 NIV Bilevel 60.00 03/30/22 01:00 74 03/30/22 00:00 86 14 113/53 (73) 95 NIV Bilevel 60.00 03/29/22 23:45 86 22 129/65 (86) 95 NIV Bilevel 60.00 03/29/22 23:21 37.9 100 93 60 03/29/22 23:15 92 14 118/58 (78) 96 NIV Bilevel 60.00 03/29/22 23:00 NIV Bilevel 60 03/29/22 22:45 93 17 139/56 (83) 95 NIV Bilevel 60.00 03/29/22 22:30 93 21 147/111 (123) 95 NIV Bilevel 60.00 03/29/22 22:27 100 23 95 60.00 03/29/22 22:16 104 03/29/22 22:12 36.8 104 24 138/78 (98) 93 NIV Bilevel 60.00 03/29/22 22:00 104 21 138/78 (98) 95 NIV Bilevel 60.00 03/29/22 21:15 37.9 101 20 145/72 98 NIV Bilevel 60.00 03/29/22 20:40 100 20 152/61 (91) 98 NIV Bilevel 60.00 03/29/22 20:30 100 20 146/61 (89) 93 OxyMask 6.00 03/29/22 20:20 Nasal Cannula 3.00 03/29/22 20:10 100 20 181/70 (107) 98 NIV Bilevel 75.00 03/29/22 20:10 NIV Bilevel 60 03/29/22 19:35 NIV Bilevel 100 03/29/22 19:35 37.9 98 23 113/80 (91) 96 NIV Bilevel I & O 03/30/22 07:00 Intake Total 250 ml Output Total 750 ml Balance -500 ml Height & Weight Height: 5'10.00" Weight: 290lbs. 8.0oz. 131.783079or; 46.21 BMI Method:Stated General Appearance: No Apparent Distress Capillary Refill: Less Than 3 Seconds Gastrointestinal: normal bowel sounds, non tender, soft; No distended, No guarding, No rebound Results Lab Laboratory Tests 03/29/22 19:45 03/30/22 03:51 Assessment/Plan Assessment/Plan 1 VANESSA EDMONDSON MD Mar 30, 2022 10:44
--- NOTE | 2022-03-30 13:29 | History & Physical ---
MAYANK FAIRBANKS 03/30/22 1329: History of Present Illness History of Present Illness Reason for visit/HPI Patient is a 56-year-old male with a history of COPD on 3L O2, HTN, DM, CHF, and schizophrenia who presented to the ED in [place] with chief complaint of hypoxia. Per records, patient was in the shower when nursing staff noticed that his arms were blue, they then placed him on his CPAP machine. On EMS arrival O2 sat was 88%, after being swithced to EMS CPAP, O2 sat imrpoved to 94%. Patient was placed on BIPAP 60% in the ED and was switched to 10L via NC this morning. Patient is alert, but not oriented and is not able to give an accurate history. He does report that he has felt short of breath for a couple days prior to admission. This morning, the patient states that he is feeling much better and is not currently having any shortness of breath. While in the room, O2 was titrated down to 8L and o2 sat remained steady. Patient has no other complaints. Date of Admission Mar 29, 2022 at 22:06 Time Seen by a Provider: 10:15 I consulted on this patient on 03/30/22 13:00 Attending Physician Andrey Meier MD Admitting Physician Admitting Physician: Haritha Hatfield DO Attending Physician: Haritha Hatfield DO Consult Allergies and Home Medications Allergies Coded Allergies: No Known Drug Allergies (Unverified , 04/04/18) Patient Home Medication List Home Medication List Reviewed: Yes Acetaminophen (Tylenol Extra Strength) 500 Mg Tablet, 1,000 MG PO Q8H PRN for PAIN-MILD (1-4), (Reported) Entered as Reported by: ERIN GONSALEZ on 06/25/18 0850 Last Action: Reviewed Ascorbate Calcium (Vitamin C) 500 Mg Tablet, 500 MG PO DAILY, (Reported) Entered as Reported by: MARY HOUSTON on 03/30/22 1356 Last Action: Held Aspirin (Aspirin EC) 81 Mg Tablet.dr, 81 MG PO DAILY, (Reported) Entered as Reported by: ERIN GONSALEZ on 06/25/18 0850 Last Action: Continued Atorvastatin Calcium (Lipitor) 40 Mg Tablet, 40 MG PO HS, (Reported) Entered as Reported by: ERIN GONSALEZ on 06/25/18 0850 Last Action: Continued Bisacodyl (Bisacodyl) 10 Mg Supp.rect, 10 MG RC DAILY PRN for CONSTIPATION-4TH LINE, (Reported) Entered as Reported by: MARY HOUSTON on 03/30/221355 Last Action: Continued Fluticasone Propionate (Fluticasone Propionate) 0.005 % Oint...g., 1 APPLIC TP BID, (Reported) Entered as Reported by: MARY HOUSTON on 03/30/221355 Last Action: Held Folic Acid (Folic Acid) 0.4 Mg Tablet, 0.8 MG PO DAILY, (Reported) Entered as Reported by: ERIN GONSALEZ on 06/25/18849 Last Action: Converted Glimepiride (Glimepiride) 4 Mg Tablet, 4 MG PO BID, (Reported) Entered as Reported by: MARY HOUSTON on 03/30/221355 Last Action: Held Haloperidol (Haloperidol) 5 Mg Tablet, 5 MG PO HS, (Reported) Entered as Reported by: ERIN GONSALEZ on 06/25/18849 Last Action: Continued Loperamide HCl (Loperamide) 2 Mg Tablet, 2 MG PO UD PRN for DIARRHEA, (Reported) Entered as Reported by: ERIN GONSALEZ on 06/25/18849 Last Action: Held Lorazepam (Ativan) 2 Mg Tablet, 2 MG PO BID, (Reported) Entered as Reported by: MARY HOUSTON on 03/30/221355 Last Action: Held Metoprolol Succinate (Kapspargo Sprinkle) 25 Mg Cap.spr.24, 25 MG PO DAILY, (Reported) Entered as Reported by: MARY HOUSTON on 03/30/221355 Last Action: Held Omeprazole (Omeprazole) 20 Mg Capsule.dr, 20 MG PO DAILY, (Reported) Entered as Reported by: MRAY HOUSTON on 03/30/221355 Last Action: Continued Polyethylene Glycol 3350 (Miralax) 17 Gram Powd.pack, 17 GM PO DAILY, (Reported) Entered as Reported by: MARY HOUSTON on 03/30/221355 Last Action: Continued Quetiapine Fumarate (Quetiapine Fumarate) 100 Mg Tablet, 100 MG PO DAILY, (Reported) Entered as Reported by: MARY HOUSTON on 03/30/221355 Last Action: Held Quetiapine Fumarate (Quetiapine Fumarate) 300 Mg Tablet, 150 MG PO HS, (Reported) Entered as Reported by: MARY HOUSTON on 03/30/221355 Last Action: Held Sertraline HCl (Sertraline HCl) 100 Mg Tablet, 100 MG PO DAILY, (Reported) Entered as Reported by: ERIN GONSALEZ on 06/25/18849 Last Action: Held Discontinued Medications Cephalexin (Keflex) 500 Mg Capsule, 500 MG PO QIDACHS Discontinued Reason: No Longer Taking Prescribed by: NELLA VENTURA on 04/14/192207 Last Action: Discontinued Famotidine (Acid Reset Merchandiser (FAMOTIDINE)) 20 Mg Tablet, 20 MG PO DAILY, (Reported) Discontinued Reason: No Longer Taking Entered as Reported by: ERIN GONSALEZ on 06/25/18849 Last Action: Discontinued Hydrocortisone (Hydrocortisone) 28.35 Gm Cream..g., TP Q8H PRN for RASH, (Reported) Discontinued Reason: No Longer Taking Entered as Reported by: ERIN GONSALEZ on 06/25/18849 Last Action: Discontinued Hydrocortisone (Hydrocortisone) 28.35 Gm Cream..g., TP UD PRN for RASH, (Reported) Discontinued Reason: No Longer Taking Entered as Reported by: ERIN GONSALEZ on 06/25/18849 Last Action: Discontinued Lorazepam (Lorazepam) 0.5 Mg Tablet, 0.5 MG PO BID, (Reported) Discontinued Reason: Prescription changed Entered as Reported by: ERIN GONSALEZ on 06/25/18849 Miconazole (Miconazole) 5 Gm Powder, TOP Q12H PRN for GAULDING/REDNESS, (Reported) Discontinued Reason: No Longer Taking Entered as Reported by: ERIN GONSALEZ on 06/25/18849 Last Action: Discontinued Ofloxacin (Ocuflox) 5 Ml Soln, 2 DROPS OU Q3HR Discontinued Reason: No Longer Taking Prescribed by: NELLA VENTURA on 04/14/192207 Last Action: Discontinued Polyethylene Glycol 3350 (Miralax) 17 Gm Powd.pack, 17 GM PO DAILY, (Reported) Discontinued Reason: No Longer Taking Entered as Reported by: ERIN GONSALEZ on 06/25/18849 Last Action: Discontinued Prednisone (Prednisone) 10 Mg Tab, 40 MG PO DAILY Discontinued Reason: No Longer Taking Prescribed by: KAMRON SILVERIO on 07/02/18 1130 Last Action: Discontinued Quetiapine Fumarate (Seroquel) 50 Mg Tablet, 50 MG PO DAILY, (Reported) Discontinued Reason: No Longer Taking Entered as Reported by: ERIN GONSALEZ on 06/25/18 0850 Last Action: Discontinued Quetiapine Fumarate (Seroquel) 300 Mg Tablet, 150 MG PO HS, (Reported) Discontinued Reason: No Longer Taking Entered as Reported by: ERIN GONSALEZ on 06/25/18 0854 Last Action: Discontinued Triamcinolone Acet (Triamcinolone Acetonide 0.1% Cream) 15 Gm Cr, TP DAILY PRN for RASH, (Reported) Discontinued Reason: No Longer Taking Entered as Reported by: ERIN GONSALEZ on 06/25/18 0850 Last Action: Discontinued Past Ydpeqar-Ehfwmc-Ltjktz Hx Patient Social History Tobacco Use?: No Use of E-Cig and/or Vaping dev: No Substance use?: No Alcohol Use?: No Pt feels they are or have been: No Immunizations Up To Date Date of Influenza Vaccine: Nov 05, 2017 Tetanus Booster (TDap): Less Than 5 Years Seasonal Allergies Seasonal Allergies: No Current Status Advance Directives: Unable to obtain Communicates: Verbally Primary Language: Egyptian Preferred Spoken Language: Egyptian Is interpretation needed?: No Past Medical History Surgeries: Abdominal COPD Gastroesophageal Reflux, Gall Bladder Disease Dysphagia Anxiety, Schizophrenia, Depression Blood Disorders: No Adverse Reaction/Blood Tranf: No Family Medical History Arthritis Asthma Cardiovascular disease Cataracts Colon cancer Completed stroke Congenital heart disease Coronary thrombosis Deafness or hearing loss Diabetes mellitus Hypertension Kidney disease Myocardial infarction Psychosocial problem Respiratory disorder Thyroid disease Review of Systems Constitutional: No chills, No fever EENTM: No hearing loss, No blurred vision Respiratory: dyspnea on exertion, short of breath Cardiovascular: No chest pain, No edema Gastrointestinal: No abdominal pain, No nausea, No vomiting Genitourinary: No dysuria, No hematuria Musculoskeletal: No back pain, No neck pain Skin: No change in color, No change in hair/nails Psychiatric/Neurological: Anxiety, Depressed Physical Exam Vital Signs Vital Signs - First Documented 03/29/22 03/29/22 19:35 20:10 Temp 37.9 Pulse 98 Resp 23 B/P (MAP) 113/80 (91) Pulse Ox 96 O2 Delivery NIV Bilevel O2 Flow Rate 75.00 FiO2 100 Capillary Refill : Less Than 3 Seconds Height, Weight, BMI Height: 5'10.00" Weight: 290lbs. 8.0oz. 131.150666by; 46.21 BMI Method:Stated General Appearance: No Apparent Distress, WD/WN, Obese HEENT: PERRL/EOMI, Pharynx Normal Neck: Non Tender, Supple Respiratory: Chest Non Tender, No Respiratory Distress, Decreased Breath Sounds (lower lobes b/l) Cardiovascular: Regular Rate, Rhythm, No Edema, Normal Peripheral Pulses Gastrointestinal: Non Tender, Soft Rectal: Deferred Back: No Vertebral Tenderness Extremity: Normal Capillary Refill, Non Tender, No Calf Tenderness, No Pedal Edema Neurologic/Psychiatric: Alert, Oriented x3 Skin: Normal Color, Warm/Dry Lymphatic: No Adenopathy Assessment/Plan Assessment and Plan Acute hypoxic respiratory failure CXR showed bibasilar atelectasis with superimposed infiltrate in the left lower lobe consistent with pneumonia Maintained good O2 sats this morning on 10L NC, titrated down to 8L, O2 sat steady Rocephin 1g Q24HIV Azithromycin 500mg IV daily Currently on methylprednisolone 40mg Q6H IV, consider switching to prednisone 40mg PO daily Albuterol 2.5mg Q2H PRN Duoneb 3ml Q2H PRN Compensated systolic heart failure Minimal pulmonary vascular congestion on CXR Scheduled for echo Monitor I's and O's Diabetes, non-insulin dependent SSI Most recent glucose 302 Schizophrenia Quetiapine 100mg PO morning, and 150mg PO evening Lorazepam 1mg Q8H PRN HTN Metoprolol 25mg PO daily Admission Diagnosis Admission Status: Observation KIRBY CORONA MD 03/30/22 1455: Allergies and Home Medications Allergies Coded Allergies: No Known Drug Allergies (Unverified , 04/04/18) Patient Home Medication List Acetaminophen (Tylenol Extra Strength) 500 Mg Tablet, 1,000 MG PO Q8H PRN for PAIN-MILD (1-4), (Reported) Entered as Reported by: ERIN GONSALEZ on 06/25/18 0810 Last Action: Reviewed Ascorbate Calcium (Vitamin C) 500 Mg Tablet, 500 MG PO DAILY, (Reported) Entered as Reported by: MARY HOUSTON on 03/30/22 1356 Last Action: Held Aspirin (Aspirin EC) 81 Mg Tablet.dr, 81 MG PO DAILY, (Reported) Entered as Reported by: ERIN GONSALEZ on 06/25/18849 Last Action: Continued Atorvastatin Calcium (Lipitor) 40 Mg Tablet, 40 MG PO HS, (Reported) Entered as Reported by: ERIN GONSALEZ on 06/25/18849 Last Action: Continued Bisacodyl (Bisacodyl) 10 Mg Supp.rect, 10 MG RC DAILY PRN for CONSTIPATION-4TH LINE, (Reported) Entered as Reported by: MARY HOUSTON on 03/30/221355 Last Action: Continued Fluticasone Propionate (Fluticasone Propionate) 0.005 % Oint...g., 1 APPLIC TP BID, (Reported) Entered as Reported by: MARY HOUSTON on 03/30/221355 Last Action: Held Folic Acid (Folic Acid) 0.4 Mg Tablet, 0.8 MG PO DAILY, (Reported) Entered as Reported by: ERIN GONSALEZ on 06/25/18849 Last Action: Converted Glimepiride (Glimepiride) 4 Mg Tablet, 4 MG PO BID, (Reported) Entered as Reported by: MARY HOUSTON on 03/30/221355 Last Action: Held Haloperidol (Haloperidol) 5 Mg Tablet, 5 MG PO HS, (Reported) Entered as Reported by: ERIN GONSALEZ on 06/25/18849 Last Action: Continued Loperamide HCl (Loperamide) 2 Mg Tablet, 2 MG PO UD PRN for DIARRHEA, (Reported) Entered as Reported by: ERIN GONSALEZ on 06/25/18849 Last Action: Held Lorazepam (Ativan) 2 Mg Tablet, 2 MG PO BID, (Reported) Entered as Reported by: MARY HOUSTON on 03/30/221355 Last Action: Held Metoprolol Succinate (Kapspargo Sprinkle) 25 Mg Cap.spr.24, 25 MG PO DAILY, (Reported) Entered as Reported by: MARY HOUSTON on 03/30/221355 Last Action: Held Omeprazole (Omeprazole) 20 Mg Capsule.dr, 20 MG PO DAILY, (Reported) Entered as Reported by: MARY HOUSTON on 03/30/221355 Last Action: Continued Polyethylene Glycol 3350 (Miralax) 17 Gram Powd.pack, 17 GM PO DAILY, (Reported) Entered as Reported by: MARY HOUSTON on 03/30/221355 Last Action: Continued Quetiapine Fumarate (Quetiapine Fumarate) 100 Mg Tablet, 100 MG PO DAILY, (Reported) Entered as Reported by: MARY HOUSTON on 03/30/221355 Last Action: Held Quetiapine Fumarate (Quetiapine Fumarate) 300 Mg Tablet, 150 MG PO HS, (Reported) Entered as Reported by: MARY HOUSTON on 03/30/221355 Last Action: Held Sertraline HCl (Sertraline HCl) 100 Mg Tablet, 100 MG PO DAILY, (Reported) Entered as Reported by: ERIN GONSALEZ on 06/25/18849 Last Action: Held Discontinued Medications Cephalexin (Keflex) 500 Mg Capsule, 500 MG PO QIDACHS Discontinued Reason: No Longer Taking Prescribed by: NELLA VENTURA on 04/14/192207 Last Action: Discontinued Famotidine (Acid Reset Merchandiser (FAMOTIDINE)) 20 Mg Tablet, 20 MG PO DAILY, (Reported) Discontinued Reason: No Longer Taking Entered as Reported by: ERIN GONSALEZ on 06/25/18849 Last Action: Discontinued Hydrocortisone (Hydrocortisone) 28.35 Gm Cream..g., TP Q8H PRN for RASH, (Reported) Discontinued Reason: No Longer Taking Entered as Reported by: ERIN GONSALEZ on 06/25/18849 Last Action: Discontinued Hydrocortisone (Hydrocortisone) 28.35 Gm Cream..g., TP UD PRN for RASH, (Reported) Discontinued Reason: No Longer Taking Entered as Reported by: ERIN GONSALEZ on 06/25/18849 Last Action: Discontinued Lorazepam (Lorazepam) 0.5 Mg Tablet, 0.5 MG PO BID, (Reported) Discontinued Reason: Prescription changed Entered as Reported by: ERIN GONSALEZ on 06/25/18849 Miconazole (Miconazole) 5 Gm Powder, TOP Q12H PRN for GAULDING/REDNESS, (Reported) Discontinued Reason: No Longer Taking Entered as Reported by: ERIN GONSALEZ on 06/25/18849 Last Action: Discontinued Ofloxacin (Ocuflox) 5 Ml Soln, 2 DROPS OU Q3HR Discontinued Reason: No Longer Taking Prescribed by: NELLA VENTURA on 04/14/192207 Last Action: Discontinued Polyethylene Glycol 3350 (Miralax) 17 Gm Powd.pack, 17 GM PO DAILY, (Reported) Discontinued Reason: No Longer Taking Entered as Reported by: ERIN GONSALEZ on 06/25/18 0850 Last Action: Discontinued Prednisone (Prednisone) 10 Mg Tab, 40 MG PO DAILY Discontinued Reason: No Longer Taking Prescribed by: KAMRON SILVERIO on 07/02/18 1130 Last Action: Discontinued Quetiapine Fumarate (Seroquel) 50 Mg Tablet, 50 MG PO DAILY, (Reported) Discontinued Reason: No Longer Taking Entered as Reported by: ERIN GONSALEZ on 06/25/18 0850 Last Action: Discontinued Quetiapine Fumarate (Seroquel) 300 Mg Tablet, 150 MG PO HS, (Reported) Discontinued Reason: No Longer Taking Entered as Reported by: ERIN GONSALEZ on 06/25/18 0854 Last Action: Discontinued Triamcinolone Acet (Triamcinolone Acetonide 0.1% Cream) 15 Gm Cr, TP DAILY PRN for RASH, (Reported) Discontinued Reason: No Longer Taking Entered as Reported by: ERIN GONSALEZ on 06/25/1850 Last Action: Discontinued Past Gjcfhyd-Qeteyc-Gacvhz Hx Family Medical History Arthritis Asthma Cardiovascular disease Cataracts Colon cancer Completed stroke Congenital heart disease Coronary thrombosis Deafness or hearing loss Diabetes mellitus Hypertension Kidney disease Myocardial infarction Psychosocial problem Respiratory disorder Thyroid disease Assessment/Plan Assessment and Plan Patient admitted with acute on chronic hypoxic respiratory failure due to COPD exacerbation and pneumonia. Doing much better this morning and off BiPAP on 10lpm HFNC. I titrated down to 8lpm while at bedside and he tolerated well. He has no complaints and states he is feeling better. We will continue on IV abx and and steroids. MAT protocol has been ordered. I anticipate his BS will be higher than normal with steroids so will continue SSI. If continues to do well will transfer out of ICU later today. Admission Diagnosis Admission Status: Inpatient Order (span 2 midnights) Reason for Inpatient Admission: see above Supervisory-Addendum Brief Verification & Attestation Participated in pt care: history, MDM, physical Personally performed: exam, history, MDM, supervision of care Care discussed with: Medical Student Procedures: n/a Results interpretation: Verified all documentation Verification and Attestation of Medical Student E/M Service A medical student performed and documented this service in my presence. I reviewed and verified all information documented by the medical student and made modifications to such information, when appropriate. I personally performed the physical exam and medical decision making. iKrby Corona, Mar 30, 2022,14:53 MAYANK FAIRBANKS Mar 30, 2022 13:29 KIRBY CORONA MD Mar 30, 2022 14:55
[2022-03-30] MEDS ORDERED: QUET100T33 PO (13:56)
[2022-03-30] MEDS ORDERED: GLIM4TAB5 PO (13:56)
[2022-03-30] MEDS ORDERED: QUET300T19 PO (13:56)
[2022-03-30] MEDS ORDERED: FLUT15OI2 TP (13:56)
[2022-03-30] MEDS ORDERED: ASCO-262 PO (13:56)
[2022-03-30] MEDS ORDERED: METO25CA PO (13:56)
[2022-03-30] MEDS ORDERED: LORA-407 PO (13:56)
[2022-03-30] MEDS ORDERED: OMEP20CA18 PO (13:56)
[2022-03-30] MEDS ORDERED: POLY17PO6 PO (13:56)
[2022-03-30] MEDS ORDERED: BISA10SU8 RC (13:56)
[2022-03-30] MEDS ORDERED: BISACODYL 10 MG SUPP (DULCOLAX) RC PRN (14:45)
[2022-03-30] MEDS ORDERED: cefTRIAXone 1 GM PRE-MIX 50 ML IV SCH (20:00)
[2022-03-30] MEDS ORDERED: HALOPERIDOL 5 MG (HALDOL) TAB PO SCH (21:00)
[2022-03-30] MEDS ORDERED: QUEtiapine 100 MG (SEROquel) TAB IMMEDIATE RELEASE PO SCH (21:00)
[2022-03-30 22:25] VITALS: BP 112/68
[2022-03-31] MEDS: RT-ALBUTEROL SULF 2.5 MG/3 ML PRE-MIX VIAL INH SCH ×2 (02:26→10:31)
[2022-03-31 04:29] LABS: BASOPHILS % (AUTO) 0 % (0-10); EOSINOPHILS % (AUTO) 0 % (0-10); HEMATOCRIT 40 % (40-54); HEMOGLOBIN 12.5 g/dL (13.3-17.7); LYMPHOCYTES # (AUTO) 0.8 10^3/uL (1.0-4.0); LYMPHOCYTES % (AUTO) 5 % (12-44); MEAN CORPUSCULAR HEMOGLOBIN 30 pg (25-34); MEAN CORPUSCULAR HGB CONC 31 g/dL (32-36); MEAN CORPUSCULAR VOLUME 97 fL (80-99); MEAN PLATELET VOLUME 10.6 fL (9.0-12.2); MONOCYTES # (AUTO) 1.1 10^3/uL (0.0-1.0); MONOCYTES % (AUTO) 7 % (0-12); NEUTROPHILS # (AUTO) 13.3 10^3/uL (1.8-7.8); NEUTROPHILS % (AUTO) 87 % (42-75); PLATELET COUNT 200 10^3/uL (130-400); WHITE BLOOD COUNT 15.3 10^3/uL (4.3-11.0)
[2022-03-31 04:42] LABS: ALBUMIN 3.8 GM/DL (3.2-4.5); POTASSIUM 4.2 MMOL/L (3.6-5.0)
[2022-03-31 04:43] LABS: CALCIUM 8.8 MG/DL (8.5-10.1)
[2022-03-31 04:46] LABS: BILIRUBIN,TOTAL 0.6 MG/DL (0.1-1.0)
[2022-03-31 04:48] LABS: CREATININE SERUM 1.13 MG/DL (0.60-1.30)
[2022-03-31 04:50] LABS: MAGNESIUM 2.4 MG/DL (1.6-2.4)
[2022-03-31] MEDS: CATHETER FLUSH 10 ML SYR IVP SCH (05:00)
[2022-03-31] MEDS: inSUlin ASPART (NovoLOG) 1 UNIT/0.01 ML (CHARGE PER UNIT) SC SCH (05:00)
[2022-03-31] MEDS ORDERED: predniSONE 20 MG TAB PO SCH (07:00)
[2022-03-31] MEDS: SERTRALINE 100 MG (ZOLOFT) TAB PO SCH (08:33)
[2022-03-31] MEDS: QUEtiapine 100 MG (SEROquel) TAB IMMEDIATE RELEASE PO SCH (08:33)
[2022-03-31] MEDS: PANTOPRAZOLE 40 MG (PROTONIX) VIAL IV SCH (08:33)
[2022-03-31] MEDS: ENOXAPARIN 40 MG/0.4 ML (LOVENOX) SYR SC SCH (08:36)
[2022-03-31] MEDS ORDERED: AZIT250T12 PO (08:48)
[2022-03-31] MEDS ORDERED: CEPH500T PO (08:48)
[2022-03-31] MEDS ORDERED: PRD20T PO (08:48)
--- NOTE | 2022-03-31 08:50 | Discharge Inst-Simple/Standard ---
Discharge Inst-Standard Discharge Medications New, Converted or Re-Newed RX: Transmitted to Pharmacy Patient Instructions/Follow Up Plan of Care/Instructions/FU: Please continue to take your medications as written. Please follow up with your primary care doctor to follow up this hospital stay. Activity as Tolerated: Yes Discharge Diet: ADA Diet Return to The Hospital For: Chest pain, shortness of breath, fever, weakness, if you feel you are getting worse. KIRBY ALEXIS MD Mar 31, 2022 08:50
[2022-03-31] MEDS ORDERED: polyethylene glycoL POWDER 17 GM (MIRALAX) PACK PO SCH (09:00)
[2022-03-31] MEDS ORDERED: ASPIRIN E.C. 81 MG (ECOTRIN) TAB PO SCH (09:00)
[2022-03-31] MEDS ORDERED: FOLIC ACID 1 MG TAB PO SCH (09:00)
[2022-03-31] MEDS ORDERED: OMEPRAZOLE 20 MG (PriLOSEC) CAP NON-FORMULARY PO SCH (09:00)
--- NOTE | 2022-03-31 11:04 | Tele-ICU Progress Note ---
Subjective Date Seen by a Provider: Mar 31, 2022 Time Seen by a Provider: 10:59 Subjective/Events-last exam (Tele-ICU Physician , progress note) Available chart/ vitals / labs / Images reviewed H&P is from ER notes Patient's information available about PMH, allergy reviewed in EMR. ROS as per chart and RN report Video assessment done using teleICU camera, rest of exam as per RN Discussed with RN. He is a 56-year-old male with past medical history of obesity, COPD on home oxygen as well as as needed CPAP at nighttime, schizophrenia, hypertension and diabetes mellitus who was transferred from [place] emergency room because of hypoxia. Reportedly when he was taking a shower his own became blue and he was placed on a CPAP at that time and subsequently brought to the emergency room via EMS. He was placed on a BiPAP/CPAP ventilation and his oxygen improved. Currently his oxygen titrated down to 8 L. He is awake alert. In no acute distress. Impression 1. Hypoxia probably due to COPD exacerbation with possible superimposed infection.. There was a concern for Pulmonary embolism but his D-dimer is only 0.4. 2. Confusion probably is his baseline. 3. COPD exacerbation now clinically improving. 4. Hyperglycemia with a hemoglobin A1c of 6.5. Management per primary care physician. Recommendations 1. Continue bronchodilator therapy 2. CPAP mask on a as needed basis 3. Continue to wean the prednisone as tolerated 4. Sliding scale coverage with insulin per primary care physician. 5. DVT prophylaxis with Lovenox 40 mg subcutaneously twice daily 6. Oral antibiotic for possible bronchitis. 7. Discharge planning per primary care physician. Critical care time 15 minutes Sepsis Event Evaluation Height, Weight, BMI Height: 5'10.00" Weight: 290lbs. 8.0oz. [id number]; 46.21 BMI Method:Stated Exam Exam Patient acknowledged, consented, and participated in this virtual visit which was conducted using real time audio/video Vital Signs Date Time Temp Pulse Resp B/P (MAP) Pulse Ox O2 Delivery O2 Flow Rate FiO2 03/31/22 10:32 95 Nasal Cannula 6.00 03/31/22 10:00 69 15 115/68 (84) 94 High Flow N/C 3.00 03/31/22 09:00 68 15 124/75 (91) 92 High Flow N/C 3.00 03/31/22 08:41 High Flow N/C 5.00 03/31/22 08:20 High Flow N/C 3.00 03/31/22 08:00 71 40 127/69 (88) 97 High Flow N/C 5.00 03/31/22 07:30 72 03/31/22 07:00 72 13 103/56 (72) 98 High Flow N/C 5.00 03/31/22 06:00 68 16 120/70 (87) 100 High Flow N/C 5.00 03/31/22 05:00 71 14 120/66 (84) 97 High Flow N/C 5.00 03/31/22 04:00 100 NIV Bilevel 50 03/31/22 04:00 79 14 116/65 (82) 95 High Flow N/C 5.00 03/31/22 03:48 36.2 03/31/22 03:00 85 13 135/64 (87) 97 High Flow N/C 5.00 03/31/22 02:26 85 20 93 50.00 03/31/22 02:00 81 13 119/63 (81) 97 High Flow N/C 5.00 03/31/22 01:00 84 03/31/22 01:00 84 13 126/62 (83) 95 High Flow N/C 5.00 03/31/22 00:00 86 19 118/65 (82) 98 High Flow N/C 5.00 03/31/22 00:00 37.2 03/30/22 23:59 100 NIV Bilevel 50 03/30/22 23:00 89 18 114/63 (80) 97 High Flow N/C 5.00 03/30/22 22:25 90 21 98 50.00 03/30/22 22:00 92 18 112/68 (83) 98 High Flow N/C 5.00 03/30/22 21:00 89 17 112/52 (72) 96 High Flow N/C 5.00 03/30/22 20:00 100 NIV Bilevel 50 03/30/22 20:00 68 15 109/59 (76) 98 High Flow N/C 5.00 03/30/22 20:00 37.0 03/30/22 19:57 66 24 97 60.00 03/30/22 19:00 80 03/30/22 19:00 73 15 118/56 (76) 97 High Flow N/C 5.00 03/30/22 18:00 67 10 109/61 (77) 94 High Flow N/C 5.00 03/30/22 17:00 70 16 125/61 (82) 92 High Flow N/C 5.00 03/30/22 16:50 High Flow N/C 5.00 03/30/22 16:15 High Flow N/C 5.00 03/30/22 16:00 70 15 112/59 (76) 93 High Flow N/C 6.00 03/30/22 15:49 36.4 03/30/22 15:00 72 16 117/60 (79) 92 High Flow N/C 6.00 03/30/22 14:23 94 Nasal Cannula 6.00 03/30/22 14:00 71 23 115/57 (76) 94 High Flow N/C 6.00 03/30/22 13:39 High Flow N/C 6.00 03/30/22 13:00 70 15 109/60 (76) 94 NIV Bilevel 50.00 03/30/22 12:28 71 03/30/22 12:00 High Flow N/C 8.00 03/30/22 12:00 36.0 03/30/22 12:00 64 14 107/56 (73) 94 NIV Bilevel 50.00 03/30/22 11:29 NIV Bilevel 50.00 03/30/22 11:00 77 13 110/59 (76) 94 High Flow N/C 8.00 I & O 03/31/22 07:00 Intake Total 1450 ml Output Total 1425 ml Balance 25 ml Height & Weight Height: 5'10.00" Weight: 290lbs. 8.0oz. [id number]; 46.21 BMI Method:Stated General Appearance: No Apparent Distress, WD/WN, Obese HEENT: PERRL/EOMI, Pharynx Normal Neck: Non Tender, Supple Respiratory: Chest Non Tender, No Respiratory Distress, Decreased Breath Sounds (lower lobes b/l) Cardiovascular: Regular Rate, Rhythm, No Edema, Normal Peripheral Pulses Capillary Refill: Less Than 3 Seconds Gastrointestinal: normal bowel sounds, non tender, soft; No distended, No guarding, No rebound Extremity: Normal Capillary Refill, Non Tender, No Calf Tenderness, No Pedal Edema Neurologic/Psychiatric: Alert, Oriented x3 Skin: Normal Color, Warm/Dry Lymphatic: No Adenopathy Results Lab Laboratory Tests 03/29/22 19:45 03/30/22 03:51 03/31/22 04:02 Assessment/Plan Assessment/Plan as above Critical Care: Critically Ill Patient Time spent with patient (mins): 15 JIM ZAMUDIO MD Mar 31, 2022 11:04
--- NOTE | 2022-03-31 12:36 | Discharge Summary ---
MAYANK FAIRBANKS 03/31/22 12:17pm: Discharge Summary Hospital Course Hospital Course Date of Admission: Mar 29, 2022 at 22:06 Admission Diagnosis : Family Physician/Provider: Andrey Meier MD Date of Discharge: 03/31/22 Discharge Diagnosis: Acute hypoxic respiratory failure Hospital Course: Patient is a 56-year-old male with a history of COPD on 3L O2, HTN, DM, CHF, and schizophrenia who presented to the ED in [place] with chief complaint of hypoxia. Per records, patient was in the shower when nursing staff noticed that his arms were blue, they then placed him on his CPAP machine. On EMS arrival O2 sat was 88%, after being switched to EMS CPAP, O2 sat improved to 94%. He was started on Rocephin 1g IV daily and azithromycin 500mg IV daily as well as methylprednisolone 40mg Q6H IV which was switched to prednisone 40mg PO. His respiratory symptoms improved throughout the course of his stay, and he was able to be titrated down to his baseline of 3L via NC. He reports that he is feeling well today and has no other complaints. Patient is being prepared for discharge today with a 3 day course of Azithromycin 250mg PO daily, cephalexin 500mg PO BI D, and prednisone 40mg PO daily. Labs and Pending Lab Test: Laboratory Tests 03/30/22 17:46: Glucometer 261H 03/30/22 23:43: Glucometer 291H 03/31/22 04:02: White Blood Count 15.3H, Red Blood Count 4.12L, Hemoglobin 12.5L, Hematocrit 40, Mean Corpuscular Volume 97, Mean Corpuscular Hemoglobin 30, Mean Corpuscular Hemoglobin Concent 31L, Red Cell Distribution Width 14.4, Platelet Count 200, Mean Platelet Volume 10.6, Immature Granulocyte % (Auto) 1, Neutrophils (%) (Auto) 87H, Lymphocytes (%) (Auto) 5L, Monocytes (%) (Auto) 7, Eosinophils (%) (Auto) 0, Basophils (%) (Auto) 0, Neutrophils # (Auto) 13.3H, Lymphocytes # (Auto) 0.8L, Monocytes # (Auto) 1.1H, Eosinophils # (Auto) 0.0, Basophils # (Auto) 0.0, Immature Granulocyte # (Auto) 0.1, Sodium Level 142, Potassium Level 4.2, Chloride Level 100, Carbon Dioxide Level 30, Anion Gap 12, Blood Urea Nitrogen 22H, Creatinine 1.13, Estimat Glomerular Filtration Rate 75, BUN/Creatinine Ratio 19, Glucose Level 287H, Calcium Level 8.8, Corrected Calcium 9.0, Phosphorus Level 3.0, Magnesium Level 2.4, Total Bilirubin 0.6, Aspartate Amino Transf (AST/SGOT) 23, Alanine Aminotransferase (ALT/SGPT) 51, Alkaline Phosphatase 66, Total Protein 8.0, Albumin 3.8 Microbiology 03/29/22 MRSA Screen - Final, Complete MRSA not isolated Home Meds Active Cephalexin 500 Mg Tablet 500 Mg PO BID Prednisone 20 Mg Tab 40 Mg PO DAILY@0700 Azithromycin 250 Mg Tablet 250 Mg PO HS Reported Fluticasone Propionate 0.005 % Oint...g. 1 Applic TP BID APPLY TO FACE AND BEHIND BOTH EARS Bisacodyl 10 Mg Supp.rect 10 Mg RC DAILY PRN Glimepiride 4 Mg Tablet 4 Mg PO BID Vitamin C (Ascorbate Calcium) 500 Mg Tablet 500 Mg PO DAILY Quetiapine Fumarate 300 Mg Tablet 150 Mg PO HS TAKES OF A 300MG TAB Quetiapine Fumarate 100 Mg Tablet 100 Mg PO DAILY Omeprazole 20 Mg Capsule.dr 20 Mg PO DAILY Miralax (Polyethylene Glycol 3350) 17 Gram Powd.pack 17 Gm PO DAILY Kapspargo Sprinkle (Metoprolol Succinate) 25 Mg Cap.spr.24 25 Mg PO DAILY HOLD IF SBP IS <100 OR PULSE <60 Ativan (Lorazepam) 2 Mg Tablet 2 Mg PO BID Sertraline HCl 100 Mg Tablet 100 Mg PO DAILY Loperamide (Loperamide HCl) 2 Mg Tablet 2 Mg PO UD PRN MDD 16MG Haloperidol 5 Mg Tablet 5 Mg PO HS Folic Acid 0.4 Mg Tablet 0.8 Mg PO DAILY TAKES 2 (0.4MG) TABS Lipitor (Atorvastatin Calcium) 40 Mg Tablet 40 Mg PO HS Aspirin EC (Aspirin) 81 Mg Tablet.dr 81 Mg PO DAILY Tylenol Extra Strength (Acetaminophen) 500 Mg Tablet 1,000 Mg PO Q8H PRN Assessment/Pt Instructions Acute hypoxic respiratory failure O2 down to his baseline of 3L, maintaining O2 sats in mid 90s Rocephin 500mg PO BID Azithromycin 250mg PO daily Prednisone 40mg PO daily Compensated systolic heart failure Minimal pulmonary vascular congestion on CXR yesterday Echo showed EF 45-50% Diabetes, non-insulin dependent Was on SSI during stay Most recent glucose 287 Schizophrenia Quetiapine 100mg PO morning, and 150mg PO evening Resume Lorazepam 2mg PO BID Haloperidol 5mg PO daily HTN Metoprolol 25mg PO daily Discharging to [place] today Pt will follow up with PCP in next 1-2 weeks. Discharge Instructions Discharge Diet: ADA Diet Activity as Tolerated: Yes Discharge Physical Examination Vital Signs Vital Signs Date Time Temp Pulse Resp B/P (MAP) Pulse Ox O2 Delivery O2 Flow Rate FiO2 03/31/22 11:00 78 14 128/70 (89) 94 High Flow N/C 3.00 03/31/22 04:00 50 03/31/22 03:48 36.2 General Appearance: No Apparent Distress, WD/WN HEENT: PERRL/EOMI, Pharynx Normal Respiratory: Chest Non Tender, Lungs Clear, No Accessory Muscle Use, No Respiratory Distress Cardiovascular: Regular Rate, Rhythm, No Edema, Normal Peripheral Pulses Gastrointestinal: Non Tender, Soft Extremity: Non Tender, No Calf Tenderness, No Pedal Edema Skin: Normal Color, Warm/Dry Neurologic/Psychiatric: Alert, Oriented x3 Allergies: Coded Allergies: No Known Drug Allergies (Unverified , 04/04/18) Discharge Summary Date of Admission Mar 29, 2022 at 22:06 Date of Discharge Discharge Date: Mar 31, 2022 KIRBY CORONA MD 03/31/22 1:08pm: Discharge Summary Discharge Physical Examination Allergies: Coded Allergies: No Known Drug Allergies (Unverified , 04/04/18) Supervisory-Addendum Brief Verification & Attestation Participated in pt care: history, MDM, physical Personally performed: exam, history, MDM, supervision of care Care discussed with: Medical Student Procedures: n/a Results interpretation: Verified all documentation Verification and Attestation of Medical Student E/M Service A medical student performed and documented this service in my presence. I reviewed and verified all information documented by the medical student and made modifications to such information, when appropriate. I personally performed the physical exam and medical decision making. Kirby Corona, Mar 31, 2022,13:08 MAYANK FAIRBANKS Mar 31, 2022 12:17 pm KIRBY CORONA MD Mar 31, 2022 1:08 pm
[2022-03-31] MEDS ORDERED: AZITHROMYCIN 250 MG TAB (ZITHROMAX) PO SCH (21:00)
[2022-04-01] MEDS ORDERED: PANTOPRAZOLE 40 MG (PROTONIX) TAB PO SCH (09:00)
== END 2022-03-31 13:41 | DRG 189 ==
LOC: ER FS 19:38 → EDUNIT# 19:54 → ICU 22:06
PROVIDERS: ADMIT Internal Medicine; ATTEND Internal Medicine
PROC: 5A09357 Assistance with Respiratory Ventilation, Less than 24 Consecutive Hours, Continuous Positive Airway Pressure (ICD-10-PCS; principal; 2022-03-29)
PROC: 5A0935A Assistance with Respiratory Ventilation, Less than 24 Consecutive Hours, High Flow/Velocity Cannula (ICD-10-PCS; 2022-03-31)
DX: J96.01 Acute respiratory failure with hypoxia (principal); J44.1 Chronic obstructive pulmonary disease with (acute) exacerbation; I50.22 Chronic systolic (congestive) heart failure; Z99.81 Dependence on supplemental oxygen; I11.0 Hypertensive heart disease with heart failure; F20.9 Schizophrenia, unspecified; Z79.82 Long term (current) use of aspirin; Z79.899 Other long term (current) drug therapy; K21.9 Gastro-esophageal reflux disease without esophagitis; F41.9 Anxiety disorder, unspecified; F32.A Depression, unspecified; Z20.822 Contact with and (suspected) exposure to COVID-19; E11.65 Type 2 diabetes mellitus with hyperglycemia
CPT/HCPCS: 36415; 71045; 80053; 82805; 82947; 83036; 83735; 83880; 84100; 84484; 85007; 85025; 85027; 85379; 85610; 85730; 87081; 87636; 93005; 93041; 93306; 94640; 94660